=== PATIENT | male | born 1940 | race Caucasian/White ===

== ENCOUNTER 2016-11-13 10:29 | Emergency (ER) | payer MEDICARE ==
[~2016-11-13] VITALS: Ht 172.7 cm; Wt 77.1 kg
[2016-11-13] MEDS ORDERED: PLAV75TA38 PO (10:48)
[2016-11-13] MEDS ORDERED: NS 1,000 ML IV ONE (12:45)
[2016-11-13] MEDS ORDERED: IPRATROPIUM 0.5MG/ALBUTEROL 2.5MG INH SOL UD 3ML (DUONEB)(J7620) NEB ONE (12:45)
[2016-11-13 13:07] LABS: BASO % 0.5 % (0.0-1.0); EOS # 0.4 K/mm3 (0.0-0.50); EOS % 4.1 % (0.0-3.0); LARGE UNSTAINED CELL # 0.2 K/mm3 (0.0-0.4); LARGE UNSTAINED CELL % 1.9 % (0.0-4.0); MEAN CORPUSCULAR HEMOGLOBIN 34.9 pg (27.0-33.0); MEAN CORPUSCULAR HGB CONC 33.2 g/dl (32.0-36.5); MEAN CORPUSCULAR VOLUME 105.1 fl (80.0-96.0); MONO # 0.5 K/mm3 (0.0-0.8); MONO % 4.8 % (0.0-5.0); NEUTROPHILS # 6.9 K/mm3 (1.8-7.7); NEUTROPHILS % 68.8 % (36.0-66.0); PLATELET COUNT, AUTOMATED 289 k/mm3 (150-450); RED CELL DISTRIBUTION WIDTH 14.2 % (11.5-14.5)
[2016-11-13 13:31] LABS: ANION GAP 7 MEQ/L (8-16); BLOOD UREA NITROGEN 33 MG/DL (7-18); CALCIUM LEVEL 10.9 MG/DL (8.8-10.2); CARBON DIOXIDE LEVEL 32 MEQ/L (21-32); CHLORIDE LEVEL 105 MEQ/L (98-107); CREATININE FOR GFR 1.67 MG/DL (0.70-1.30); GLUCOSE, FASTING 99 MG/DL (83-110); POTASSIUM SERUM 3.7 MEQ/L (3.5-5.1); SODIUM LEVEL 144 MEQ/L (136-145)
[2016-11-13 14:17] VITALS: BP 145/84
[2016-11-13] MEDS ORDERED: ZITHTAB PO (14:17)
[2016-11-13] MEDS ORDERED: ALBU17IN INH (14:17)
--- NOTE | 2016-11-13 14:31 | REP ---
Chest two views HISTORY: Chest pain Comparison: None Increased density is present in the right middle lobe consistent with an infiltrate. Patchy density is present in the left lower lobe consistent with atelectasis or infiltrate. The heart is normal in size. The pulmonary vasculature is normal in appearance. The bony structure is intact. IMPRESSION: 1. Right middle lobe infiltrate. 2. Left lower lobe atelectasis or infiltrate. Signed by Farshad Sutton MD 11/13/2016 01:55 P
--- NOTE | 2016-11-14 08:48 | ECGEPIP ---
Stationary ECG Study [facility] - ED Test Date: 2016-11-13 Pat Name: DEE ORONA Department: Room: - Gender: M Bulk Driver: brittany : 1940 Requested By: DIETER Knox PA-C Order Number: [id number] Reading MD: Lise Colon Measurements Intervals [place] Rate: 64 P: 64 MD: 179 QRS: 57 QRSD: 102 T: 57 QT: 398 QTc: 411 Interpretive Statements SINUS RHYTHM NSTTW ABNORMALITY NO PRIOR FOR COMPARISON Electronically Signed On 11-14-2016 8:47:53 EDT by Lise Colon
== END 2016-11-13 14:24 | disposition home or self-care (01) ==
LOC: M ED 12:07
DX: J18.1 Lobar pneumonia, unspecified organism (principal); I50.9 Heart failure, unspecified; I10 Essential (primary) hypertension; N40.0 Benign prostatic hyperplasia without lower urinary tract symptoms; F17.200 Nicotine dependence, unspecified, uncomplicated; R94.31 Abnormal electrocardiogram [ECG] [EKG]; Z79.02 Long term (current) use of antithrombotics/antiplatelets

== ENCOUNTER 2017-07-28 19:57 | Inpatient (IN) | payer MEDICARE, OTHER ==
[2017-07-28] MEDS: SYMBICORT 160/4.5MCG INHALER 6GM INH (21:00)
[2017-07-28] MEDS: MORPHINE 4 MG/ML 1ML VIAL (J2270) IV ×2 (21:03→22:40)
[2017-07-28 21:13] LABS: BASO # 0.1 10^3/uL (0.0-0.2); BASO % 0.8 % (0.0-1.0); EOS # 0.4 10^3/uL (0.0-0.50); EOS % 4.2 % (0.0-3.0); HEMATOCRIT 35.4 % (42.0-52.0); IMMATURE GRANULOCYTE % 0.2 % (0-3.0); LYMPH # 2.2 10^3/uL (1.5-4.5); LYMPH % 25.6 % (24.0-44.0); MEAN CORPUSCULAR HEMOGLOBIN 32.5 pg (27.0-33.0); MEAN CORPUSCULAR HGB CONC 33.9 g/dl (32.0-36.5); MEAN CORPUSCULAR VOLUME 95.9 fl (80.0-96.0); MONO # 0.7 10^3/uL (0.0-0.8); MONO % 8.5 % (0.0-5.0); NEUTROPHILS # 5.2 10^3/uL (1.8-7.7); NEUTROPHILS % 60.7 % (36.0-66.0); PLATELET COUNT, AUTOMATED 296 10^3/uL (150-450); RED BLOOD COUNT 3.69 10^6/uL (4.30-6.10); WHITE BLOOD COUNT 8.6 10^3/uL (4.0-10.0)
[2017-07-28 21:26] LABS: INR 1.01; PROTHROMBIN TIME 13.4 SECONDS (12.4-14.5)
[2017-07-28 21:27] LABS: PARTIAL THROMBOPLASTIN TIME 31.7 SECONDS (26.8-37.9)
[2017-07-28] MEDS ORDERED: ISOVUE-370 76% 100ML VIAL (Q9967) As Ordered (21:38)
[2017-07-28 21:40] LABS: ALT/SGPT 17 U/L (12-78); ANION GAP 8 MEQ/L (8-16); AST/SGOT 16 U/L (7-37); BLOOD UREA NITROGEN 23 MG/DL (7-18); CARBON DIOXIDE LEVEL 27 MEQ/L (21-32); CHLORIDE LEVEL 106 MEQ/L (98-107); CPK CREATINE PHOSPHOKINASE 77 U/L (39-308); GLOMERULAR FILTRATION RATE > 60.0 (>42); GLUCOSE, FASTING 109 MG/DL (70-100); POTASSIUM SERUM 3.2 MEQ/L (3.5-5.1); SODIUM LEVEL 141 MEQ/L (136-145)
[2017-07-28 21:41] LABS: ALBUMIN 3.6 GM/DL (3.2-5.2); ALBUMIN/GLOBULIN RATIO 0.88 (1.00-1.93); ALKALINE PHOSPHATASE 140 U/L (45-117); BILIRUBIN,DIRECT < 0.1 MG/DL (0.0-0.2); BILIRUBIN,TOTAL 0.3 MG/DL (0.2-1.0); C REACTIVE PROTEIN QUANTITATIV 1.14 MG/DL (0.00-0.30); LIPASE 91 U/L (73-393); MB/CK RELATIVE INDEX 1.29 (< OR =4); TOTAL PROTEIN 7.7 GM/DL (6.4-8.2); TROPONIN I < 0.02 NG/ML (< 0.10)
[2017-07-28 21:44] LABS: ERYTHROCYTE SEDIMENTATION RATE 41 mm/hr (0-20)
[2017-07-28 22:49] LABS: KETONE, URINE AUTO RFX NEGATIVE (NEGATIVE); LEUKOCYTE ESTERASE UR AUTO RFX NEGATIVE (NEGATIVE); NITRITE, URINE AUTO RFX NEGATIVE (NEGATIVE); RBC, URINE AUTO RFX 0 /HPF (0-3); SPECIFIC GRAVITY UR AUTO RFX 1.016 (1.002-1.035); SQUAM EPITHELIAL CELL UR AURFX 0 /HPF (0-6); WBC, URINE AUTO RFX 0 /HPF (0-3)
[2017-07-28] MEDS: PANTOPRAZOLE 40MG INJ (PROTONIX) (C9113) IV (23:19)
[2017-07-28] MEDS: KCL 40MEQ in NS 1000ML 1,000 ML IV (23:19)
[2017-07-28] MEDS: POTASSIUM CHLORIDE 10 MEQ SR TABLET PO (23:20)
[2017-07-28] MEDS: ALBUTEROL SULFATE 2.5 MG/0.5 ML INH NEB SOLN NEB (23:30)
[2017-07-28] MEDS: GI COCKTAIL 50ML BTL(HYOSCYAMINE/MAALOX/LIDOCAINE VISCOUS)(1:3:1) PO (23:37)
[2017-07-28] MEDS: ONDANSETRON 4MG/2ML VIAL (J2405) IV (23:38)
[2017-07-29] MEDS ORDERED: ONDANSETRON 4MG/2ML VIAL (J2405) IV (00:30)
[2017-07-29] MEDS: methylPREDNISolone INJ 125 MG/2 ML VIAL (J2930) IV (00:30)
[2017-07-29] MEDS ORDERED: diphenhydrAMINE 25 MG CAP PO (01:15)
[2017-07-29] MEDS: LevoFLOXacin IV 750 MG in APPROPRIATE DILUENT 1 EA IV (01:22)
[2017-07-29] MEDS: TAMSULOSIN 0.4 MG CAP PO ×2 (01:55→18:55)
[2017-07-29] MEDS: amLODIPine 10 MG TAB PO ×2 (01:56→18:55)
[2017-07-29] MEDS: SIMVASTATIN 20 MG TAB PO ×2 (01:56→18:55)
[2017-07-29] MEDS: MONTELUKAST 10 MG TAB PO ×2 (01:56→18:55)
[2017-07-29] MEDS: IPRATROPIUM 0.5MG/ALBUTEROL 2.5MG INH SOL UD 3ML (DUONEB)(J7620) NEB ×4 (02:00→18:30)
[2017-07-29] MEDS: HEPARIN SOD (PORCINE) 5000 UNITS/ML VIAL SQ ×3 (05:46→21:39)
[2017-07-29 07:20] LABS: HEMATOCRIT 35.2 % (42.0-52.0); HEMOGLOBIN 11.9 g/dl (14.0-18.0); MEAN CORPUSCULAR HEMOGLOBIN 32.4 pg (27.0-33.0); MEAN CORPUSCULAR HGB CONC 33.8 g/dl (32.0-36.5); MEAN CORPUSCULAR VOLUME 95.9 fl (80.0-96.0); PLATELET COUNT, AUTOMATED 294 10^3/uL (150-450); RED BLOOD COUNT 3.67 10^6/uL (4.30-6.10); RED CELL DISTRIBUTION WIDTH 14.9 % (11.5-14.5); WHITE BLOOD COUNT 9.2 10^3/uL (4.0-10.0)
[2017-07-29 07:26] LABS: ADD MANUAL DIFFER YES; DIFF SLIDE NUMBER 112; POSITIVE MORPH POS FLAG
[2017-07-29 07:29] LABS: ALBUMIN 3.4 GM/DL (3.2-5.2); ALBUMIN/GLOBULIN RATIO 0.87 (1.00-1.93); ALKALINE PHOSPHATASE 125 U/L (45-117); ALT/SGPT 16 U/L (12-78); ANION GAP 10 MEQ/L (8-16); AST/SGOT 14 U/L (7-37); BILIRUBIN,TOTAL 0.4 MG/DL (0.2-1.0); BLOOD UREA NITROGEN 21 MG/DL (7-18); C REACTIVE PROTEIN QUANTITATIV 1.12 MG/DL (0.00-0.30); CALCIUM LEVEL 8.8 MG/DL (8.8-10.2); CARBON DIOXIDE LEVEL 25 MEQ/L (21-32); CHLORIDE LEVEL 107 MEQ/L (98-107); CREATININE FOR GFR 1.29 MG/DL (0.70-1.30); GLOMERULAR FILTRATION RATE 57.8 (>42); GLUCOSE, FASTING 167 MG/DL (70-100); MAGNESIUM LEVEL 2.1 MG/DL (1.8-2.4); POTASSIUM SERUM 3.8 MEQ/L (3.5-5.1); SODIUM LEVEL 142 MEQ/L (136-145); TOTAL PROTEIN 7.3 GM/DL (6.4-8.2)
[2017-07-29 07:56] LABS: LYMPHOCYTES 8 % (16-52); MONOCYTES 2 % (0-8); NEUTROPHILS 90 % (35-75)
[2017-07-29 08:01] LABS: ANISOCYTOSIS 1+; PLATELET ESTIMATE NORMAL (NORMAL)
[2017-07-29] MEDS: SYMBICORT 160/4.5MCG INHALER 6GM INH ×2 (08:23→18:31)
[2017-07-29] MEDS: CLOPIDOGREL 75 MG TAB PO (08:40)
[2017-07-29] MEDS: LORATADINE 10 MG TAB PO (08:40)
[2017-07-29] MEDS: ATENOLOL 50 MG TAB PO (08:40)
[2017-07-29] MEDS: MULTIVITAMINS/MINERALS THERAP 1 TAB PO (08:40)
[2017-07-29] MEDS: PANTOPRAZOLE 40MG INJ (PROTONIX) (C9113) IV (08:41)
[2017-07-29] MEDS: KCL 40MEQ in NS 1000ML 1,000 ML IV (09:29)
[2017-07-29] MEDS: ALLOPURINOL 300 MG TAB PO (10:11)
[2017-07-29] MEDS: LISINOPRIL 5 MG TAB PO (10:11)
[2017-07-29] MEDS: methylPREDNISolone INJ 40 MG/1 ML VIAL (J2920) IV ×2 (10:11→18:00)
[2017-07-29] MEDS: MORPHINE 4 MG/ML 1ML VIAL (J2270) IV ×3 (10:12→18:56)
[2017-07-29] MEDS: GI COCKTAIL 50ML BTL(HYOSCYAMINE/MAALOX/LIDOCAINE VISCOUS)(1:3:1) PO (16:00)
[2017-07-30] MEDS: MORPHINE 4 MG/ML 1ML VIAL (J2270) IV ×3 (00:06→18:51)
[2017-07-30] MEDS: IPRATROPIUM 0.5MG/ALBUTEROL 2.5MG INH SOL UD 3ML (DUONEB)(J7620) NEB ×4 (01:25→20:00)
[2017-07-30] MEDS: methylPREDNISolone INJ 40 MG/1 ML VIAL (J2920) IV ×2 (01:43→10:39)
[2017-07-30] MEDS: LevoFLOXacin IV 750 MG in APPROPRIATE DILUENT 1 EA IV (01:43)
[2017-07-30] MEDS ORDERED: SLF 3 ML SYR IV (04:45)
[2017-07-30 05:42] LABS: BASO % 0.1 % (0.0-1.0); HEMATOCRIT 34.5 % (42.0-52.0); HEMOGLOBIN 11.6 g/dl (14.0-18.0); IMMATURE GRANULOCYTE % 0.5 % (0-3.0); LYMPH % 7.1 % (24.0-44.0); MEAN CORPUSCULAR HGB CONC 33.6 g/dl (32.0-36.5); MEAN CORPUSCULAR VOLUME 95.3 fl (80.0-96.0); MONO # 0.5 10^3/uL (0.0-0.8); MONO % 3.3 % (0.0-5.0); NEUTROPHILS # 12.2 10^3/uL (1.8-7.7); PLATELET COUNT, AUTOMATED 278 10^3/uL (150-450); RED BLOOD COUNT 3.62 10^6/uL (4.30-6.10); RED CELL DISTRIBUTION WIDTH 14.9 % (11.5-14.5); WHITE BLOOD COUNT 13.7 10^3/uL (4.0-10.0)
[2017-07-30] MEDS: SLF 3 ML SYR IV ×3 (05:59→21:26)
[2017-07-30] MEDS: HEPARIN SOD (PORCINE) 5000 UNITS/ML VIAL SQ ×3 (05:59→21:25)
[2017-07-30 06:00] LABS: ALBUMIN 3.4 GM/DL (3.2-5.2); ALBUMIN/GLOBULIN RATIO 0.92 (1.00-1.93); ALKALINE PHOSPHATASE 105 U/L (45-117); ALT/SGPT 13 U/L (12-78); ANION GAP 8 MEQ/L (8-16); AST/SGOT 13 U/L (7-37); BILIRUBIN,TOTAL 0.3 MG/DL (0.2-1.0); BLOOD UREA NITROGEN 25 MG/DL (7-18); C REACTIVE PROTEIN QUANTITATIV 1.15 MG/DL (0.00-0.30); CALCIUM LEVEL 8.8 MG/DL (8.8-10.2); CARBON DIOXIDE LEVEL 27 MEQ/L (21-32); CHLORIDE LEVEL 104 MEQ/L (98-107); CREATININE FOR GFR 1.24 MG/DL (0.70-1.30); GLOMERULAR FILTRATION RATE > 60.0 (>42); GLUCOSE, FASTING 153 MG/DL (70-100); MAGNESIUM LEVEL 2.2 MG/DL (1.8-2.4); POTASSIUM SERUM 3.8 MEQ/L (3.5-5.1); SODIUM LEVEL 139 MEQ/L (136-145); TOTAL PROTEIN 7.1 GM/DL (6.4-8.2)
[2017-07-30] MEDS: SYMBICORT 160/4.5MCG INHALER 6GM INH ×2 (08:00→20:21)
[2017-07-30] MEDS: PANTOPRAZOLE 40MG INJ (PROTONIX) (C9113) IV (08:40)
[2017-07-30] MEDS: ALLOPURINOL 300 MG TAB PO (08:41)
[2017-07-30] MEDS: ATENOLOL 50 MG TAB PO (08:41)
[2017-07-30] MEDS: LISINOPRIL 5 MG TAB PO (08:42)
[2017-07-30] MEDS: MULTIVITAMINS/MINERALS THERAP 1 TAB PO (08:42)
[2017-07-30] MEDS: LORATADINE 10 MG TAB PO (08:42)
[2017-07-30] MEDS: CLOPIDOGREL 75 MG TAB PO (08:42)
[2017-07-30] MEDS: SIMVASTATIN 20 MG TAB PO (21:25)
[2017-07-30] MEDS: TAMSULOSIN 0.4 MG CAP PO (21:25)
[2017-07-30] MEDS: MONTELUKAST 10 MG TAB PO (21:25)
[2017-07-30] MEDS: amLODIPine 10 MG TAB PO (21:26)
[2017-07-30] MEDS: SENNA 8.6 MG TAB (SENOKOT) PO (23:01)
[2017-07-30] MEDS: DOCUSATE SODIUM 100 MG CAP PO (23:02)
[2017-07-31] MEDS: IPRATROPIUM 0.5MG/ALBUTEROL 2.5MG INH SOL UD 3ML (DUONEB)(J7620) NEB ×5 (00:36→20:00)
[2017-07-31] MEDS: MORPHINE 4 MG/ML 1ML VIAL (J2270) IV ×5 (00:47→22:45)
[2017-07-31] MEDS: HEPARIN SOD (PORCINE) 5000 UNITS/ML VIAL SQ ×3 (05:15→22:04)
[2017-07-31] MEDS: SLF 3 ML SYR IV ×3 (05:15→22:04)
[2017-07-31 06:52] LABS: BASO % 0.1 % (0.0-1.0); HEMATOCRIT 40.5 % (42.0-52.0); IMMATURE GRANULOCYTE % 0.5 % (0-3.0); LYMPH # 1.9 10^3/uL (1.5-4.5); LYMPH % 9.6 % (24.0-44.0); MEAN CORPUSCULAR HEMOGLOBIN 32.5 pg (27.0-33.0); MEAN CORPUSCULAR HGB CONC 34.6 g/dl (32.0-36.5); MONO # 1.5 10^3/uL (0.0-0.8); MONO % 7.3 % (0.0-5.0); NEUTROPHILS # 16.5 10^3/uL (1.8-7.7); NEUTROPHILS % 82.5 % (36.0-66.0); PLATELET COUNT, AUTOMATED 351 10^3/uL (150-450); RED BLOOD COUNT 4.31 10^6/uL (4.30-6.10); RED CELL DISTRIBUTION WIDTH 14.8 % (11.5-14.5); WHITE BLOOD COUNT 20.1 10^3/uL (4.0-10.0)
[2017-07-31 07:20] LABS: ALBUMIN 3.3 GM/DL (3.2-5.2); ALBUMIN/GLOBULIN RATIO 0.89 (1.00-1.93); ALKALINE PHOSPHATASE 110 U/L (45-117); ALT/SGPT 27 U/L (12-78); ANION GAP 8 MEQ/L (8-16); AST/SGOT 26 U/L (7-37); BILIRUBIN,TOTAL 0.4 MG/DL (0.2-1.0); BLOOD UREA NITROGEN 27 MG/DL (7-18); CALCIUM LEVEL 9.1 MG/DL (8.8-10.2); CARBON DIOXIDE LEVEL 30 MEQ/L (21-32); CHLORIDE LEVEL 100 MEQ/L (98-107); CREATININE FOR GFR 1.26 MG/DL (0.70-1.30); GLOMERULAR FILTRATION RATE 59.4 (>42); GLUCOSE, FASTING 124 MG/DL (70-100); POTASSIUM SERUM 3.6 MEQ/L (3.5-5.1); SODIUM LEVEL 138 MEQ/L (136-145)
[2017-07-31] MEDS: SYMBICORT 160/4.5MCG INHALER 6GM INH ×2 (07:43→20:13)
[2017-07-31] MEDS: ALLOPURINOL 300 MG TAB PO ×2 (09:00→13:10)
[2017-07-31] MEDS: MULTIVITAMINS/MINERALS THERAP 1 TAB PO ×2 (09:00→13:11)
[2017-07-31] MEDS: LISINOPRIL 5 MG TAB PO ×2 (09:00→13:15)
[2017-07-31] MEDS ORDERED: E-Z-HD 98% w/w 340GM SUSP BTL As Ordered (11:00)
[2017-07-31] MEDS ORDERED: E-Z-GAS II EFFERVESCENT PACKET (SODIUM BICARB./CITRIC ACID/SIMETHICONE) As Ordered (11:00)
[2017-07-31] MEDS ORDERED: E-Z-PAQUE 96% w/w SUSP 176GM BTL As Ordered (11:00)
[2017-07-31] MEDS: PANTOPRAZOLE 40MG INJ (PROTONIX) (C9113) IV (13:10)
[2017-07-31] MEDS: SENNA 8.6 MG TAB (SENOKOT) PO (13:10)
[2017-07-31] MEDS: DOCUSATE SODIUM 100 MG CAP PO (13:10)
[2017-07-31] MEDS: CLOPIDOGREL 75 MG TAB PO (13:11)
[2017-07-31] MEDS: LORATADINE 10 MG TAB PO (13:11)
[2017-07-31] MEDS: ATENOLOL 50 MG TAB PO (13:14)
[2017-07-31] MEDS: TAMSULOSIN 0.4 MG CAP PO (20:34)
[2017-07-31] MEDS: MONTELUKAST 10 MG TAB PO (20:34)
[2017-07-31] MEDS: SIMVASTATIN 20 MG TAB PO (20:34)
[2017-07-31] MEDS: amLODIPine 10 MG TAB PO (20:35)
[2017-07-31] MEDS: KETOROLAC 30 MG/ML VIAL (J1885) IV (23:15)
[2017-08-01] MEDS: IPRATROPIUM 0.5MG/ALBUTEROL 2.5MG INH SOL UD 3ML (DUONEB)(J7620) NEB ×4 (02:00→20:00)
[2017-08-01] MEDS: MORPHINE 4 MG/ML 1ML VIAL (J2270) IV ×4 (03:17→20:41)
[2017-08-01] MEDS: KETOROLAC 30 MG/ML VIAL (J1885) IV (05:56)
[2017-08-01] MEDS: HEPARIN SOD (PORCINE) 5000 UNITS/ML VIAL SQ ×3 (05:57→20:42)
[2017-08-01] MEDS: SLF 3 ML SYR IV ×3 (05:57→20:42)
[2017-08-01 06:34] LABS: BASO % 0.2 % (0.0-1.0); EOS # 0.1 10^3/uL (0.0-0.50); HEMATOCRIT 37.9 % (42.0-52.0); IMMATURE GRANULOCYTE % 0.3 % (0-3.0); LYMPH # 1.2 10^3/uL (1.5-4.5); LYMPH % 11.5 % (24.0-44.0); MEAN CORPUSCULAR HEMOGLOBIN 32.5 pg (27.0-33.0); MEAN CORPUSCULAR HGB CONC 34.3 g/dl (32.0-36.5); MEAN CORPUSCULAR VOLUME 94.8 fl (80.0-96.0); MONO % 9.4 % (0.0-5.0); NEUTROPHILS # 8.1 10^3/uL (1.8-7.7); NEUTROPHILS % 77.6 % (36.0-66.0); PLATELET COUNT, AUTOMATED 304 10^3/uL (150-450); RED CELL DISTRIBUTION WIDTH 14.7 % (11.5-14.5); WHITE BLOOD COUNT 10.4 10^3/uL (4.0-10.0)
[2017-08-01 06:58] LABS: ALBUMIN 3.3 GM/DL (3.2-5.2); ALBUMIN/GLOBULIN RATIO 0.89 (1.00-1.93); ALKALINE PHOSPHATASE 112 U/L (45-117); ALT/SGPT 56 U/L (12-78); ANION GAP 8 MEQ/L (8-16); AST/SGOT 38 U/L (7-37); BILIRUBIN,TOTAL 0.8 MG/DL (0.2-1.0); BLOOD UREA NITROGEN 46 MG/DL (7-18); CARBON DIOXIDE LEVEL 29 MEQ/L (21-32); CHLORIDE LEVEL 99 MEQ/L (98-107); CREATININE FOR GFR 2.03 MG/DL (0.70-1.30); GLOMERULAR FILTRATION RATE 34.3 (>42); GLUCOSE, FASTING 133 MG/DL (70-100); POTASSIUM SERUM 3.7 MEQ/L (3.5-5.1); SODIUM LEVEL 136 MEQ/L (136-145)
[2017-08-01] MEDS: SYMBICORT 160/4.5MCG INHALER 6GM INH ×2 (08:38→20:40)
[2017-08-01] MEDS: ATENOLOL 50 MG TAB PO (08:45)
[2017-08-01] MEDS: MULTIVITAMINS/MINERALS THERAP 1 TAB PO (08:45)
[2017-08-01] MEDS: LORATADINE 10 MG TAB PO (08:45)
[2017-08-01] MEDS: PANTOPRAZOLE 40MG INJ (PROTONIX) (C9113) IV (08:45)
[2017-08-01] MEDS: ALLOPURINOL 300 MG TAB PO (08:45)
[2017-08-01] MEDS: LISINOPRIL 5 MG TAB PO (08:46)
[2017-08-01] MEDS: KCL 40MEQ in NS 1000ML 1,000 ML IV ×3 (11:44→20:45)
[2017-08-01] MEDS: SIMVASTATIN 20 MG TAB PO (20:41)
[2017-08-01] MEDS: MONTELUKAST 10 MG TAB PO (20:41)
[2017-08-01] MEDS: TAMSULOSIN 0.4 MG CAP PO (20:41)
[2017-08-01] MEDS: ACETAMINOPHEN TAB 650MG DOSE (2X325MG) PO (23:03)
[2017-08-01] MEDS: NS 1,000 ML IV (23:13)
[2017-08-02 00:05] LABS: ANION GAP 10 MEQ/L (8-16); BLOOD UREA NITROGEN 50 MG/DL (7-18); CALCIUM LEVEL 7.9 MG/DL (8.8-10.2); CARBON DIOXIDE LEVEL 27 MEQ/L (21-32); CHLORIDE LEVEL 108 MEQ/L (98-107); CREATININE FOR GFR 1.96 MG/DL (0.70-1.30); GLOMERULAR FILTRATION RATE 35.7 (>42); GLUCOSE, FASTING 100 MG/DL (70-100); MAGNESIUM LEVEL 2.6 MG/DL (1.8-2.4); SODIUM LEVEL 145 MEQ/L (136-145)
[2017-08-02 00:19] LABS: HEMATOCRIT 36.1 % (42.0-52.0); HEMOGLOBIN 12.3 g/dl (14.0-18.0); MEAN CORPUSCULAR HEMOGLOBIN 32.7 pg (27.0-33.0); MEAN CORPUSCULAR HGB CONC 34.1 g/dl (32.0-36.5); PLATELET COUNT, AUTOMATED 256 10^3/uL (150-450); RED BLOOD COUNT 3.76 10^6/uL (4.30-6.10); RED CELL DISTRIBUTION WIDTH 14.8 % (11.5-14.5); WHITE BLOOD COUNT 5.1 10^3/uL (4.0-10.0)
[2017-08-02] MEDS: IPRATROPIUM 0.5MG/ALBUTEROL 2.5MG INH SOL UD 3ML (DUONEB)(J7620) NEB ×4 (02:02→20:00)
[2017-08-02] MEDS: ACETAMINOPHEN TAB 650MG DOSE (2X325MG) PO ×4 (03:27→20:10)
[2017-08-02] MEDS: SLF 3 ML SYR IV ×3 (05:44→22:00)
[2017-08-02] MEDS: HEPARIN SOD (PORCINE) 5000 UNITS/ML VIAL SQ ×2 (06:18→15:11)
[2017-08-02 06:48] LABS: HEMATOCRIT 34.2 % (42.0-52.0); HEMOGLOBIN 11.7 g/dl (14.0-18.0); MEAN CORPUSCULAR HEMOGLOBIN 32.4 pg (27.0-33.0); MEAN CORPUSCULAR HGB CONC 34.2 g/dl (32.0-36.5); MEAN CORPUSCULAR VOLUME 94.7 fl (80.0-96.0); PLATELET COUNT, AUTOMATED 263 10^3/uL (150-450); RED BLOOD COUNT 3.61 10^6/uL (4.30-6.10); RED CELL DISTRIBUTION WIDTH 14.8 % (11.5-14.5); WHITE BLOOD COUNT 5.2 10^3/uL (4.0-10.0)
[2017-08-02 06:50] LABS: POSITIVE MORPH POS FLAG
[2017-08-02 06:51] LABS: ADD MANUAL DIFFER YES; DIFF SLIDE NUMBER 18
[2017-08-02 07:13] LABS: ALBUMIN 2.8 GM/DL (3.2-5.2); ALBUMIN/GLOBULIN RATIO 0.82 (1.00-1.93); ALKALINE PHOSPHATASE 93 U/L (45-117); ALT/SGPT 33 U/L (12-78); ANION GAP 9 MEQ/L (8-16); AST/SGOT 19 U/L (7-37); BILIRUBIN,TOTAL 0.9 MG/DL (0.2-1.0); BLOOD UREA NITROGEN 49 MG/DL (7-18); CALCIUM LEVEL 8.4 MG/DL (8.8-10.2); CARBON DIOXIDE LEVEL 25 MEQ/L (21-32); CHLORIDE LEVEL 109 MEQ/L (98-107); CREATININE FOR GFR 1.83 MG/DL (0.70-1.30); GLOMERULAR FILTRATION RATE 38.6 (>42); GLUCOSE, FASTING 82 MG/DL (70-100); MAGNESIUM LEVEL 2.8 MG/DL (1.8-2.4); POTASSIUM SERUM 4.3 MEQ/L (3.5-5.1); SODIUM LEVEL 143 MEQ/L (136-145); TOTAL PROTEIN 6.2 GM/DL (6.4-8.2)
[2017-08-02 07:25] LABS: ATYPICAL LYMPH 1 % (0-5); BANDS 6 % (< 11); EOSINOPHILS 1 % (0-5); LYMPHOCYTES 23 % (16-52); METAMYELOCYTES 2 % (0-0); MONOCYTES 5 % (0-8); NEUTROPHILS 62 % (35-75); PLATELET ESTIMATE NORMAL (NORMAL)
[2017-08-02] MEDS: SYMBICORT 160/4.5MCG INHALER 6GM INH ×2 (08:19→21:01)
[2017-08-02] MEDS: ALLOPURINOL 300 MG TAB PO (09:15)
[2017-08-02] MEDS: LORATADINE 10 MG TAB PO (09:15)
[2017-08-02] MEDS: MULTIVITAMINS/MINERALS THERAP 1 TAB PO (09:15)
[2017-08-02] MEDS: PANTOPRAZOLE 40MG INJ (PROTONIX) (C9113) IV (09:16)
[2017-08-02] MEDS: KCL 20MEQ IN 0.45NS 1000ML 1,000 ML IV ×2 (12:45→20:09)
[2017-08-02] MEDS: TAMSULOSIN 0.4 MG CAP PO (20:10)
[2017-08-02] MEDS: MORPHINE 4 MG/ML 1ML VIAL (J2270) IV (20:11)
[2017-08-02] MEDS: MONTELUKAST 10 MG TAB PO (22:10)
[2017-08-03] MEDS: IPRATROPIUM 0.5MG/ALBUTEROL 2.5MG INH SOL UD 3ML (DUONEB)(J7620) NEB ×4 (02:08→20:00)
[2017-08-03] MEDS: KCL 20MEQ IN 0.45NS 1000ML 1,000 ML IV (03:27)
[2017-08-03] MEDS: SLF 3 ML SYR IV ×3 (03:44→19:33)
[2017-08-03] MEDS: MORPHINE 4 MG/ML 1ML VIAL (J2270) IV ×3 (03:58→22:12)
[2017-08-03 06:49] LABS: HEMATOCRIT 35.4 % (42.0-52.0); HEMOGLOBIN 11.9 g/dl (14.0-18.0); MEAN CORPUSCULAR HEMOGLOBIN 32.2 pg (27.0-33.0); MEAN CORPUSCULAR HGB CONC 33.6 g/dl (32.0-36.5); MEAN CORPUSCULAR VOLUME 95.7 fl (80.0-96.0); PLATELET COUNT, AUTOMATED 266 10^3/uL (150-450); RED CELL DISTRIBUTION WIDTH 14.9 % (11.5-14.5); WHITE BLOOD COUNT 7.1 10^3/uL (4.0-10.0)
[2017-08-03 06:56] LABS: ADD MANUAL DIFFER YES; DIFF SLIDE NUMBER 11; POSITIVE MORPH POS FLAG
[2017-08-03 07:09] LABS: ALBUMIN 2.9 GM/DL (3.2-5.2); ALBUMIN/GLOBULIN RATIO 0.76 (1.00-1.93); ALKALINE PHOSPHATASE 87 U/L (45-117); ALT/SGPT 27 U/L (12-78); ANION GAP 13 MEQ/L (8-16); AST/SGOT 13 U/L (7-37); BILIRUBIN,TOTAL 0.6 MG/DL (0.2-1.0); BLOOD UREA NITROGEN 48 MG/DL (7-18); CALCIUM LEVEL 8.6 MG/DL (8.8-10.2); CARBON DIOXIDE LEVEL 22 MEQ/L (21-32); CHLORIDE LEVEL 107 MEQ/L (98-107); CREATININE FOR GFR 1.63 MG/DL (0.70-1.30); GLOMERULAR FILTRATION RATE 44.1 (>42); GLUCOSE, FASTING 80 MG/DL (70-100); POTASSIUM SERUM 4.2 MEQ/L (3.5-5.1); SODIUM LEVEL 142 MEQ/L (136-145); TOTAL PROTEIN 6.7 GM/DL (6.4-8.2)
[2017-08-03 07:25] LABS: ATYPICAL LYMPH 4 % (0-5); BANDS 3 % (< 11); LYMPHOCYTES 19 % (16-52); MONOCYTES 11 % (0-8); NEUTROPHILS 59 % (35-75)
[2017-08-03 07:26] LABS: PLATELET ESTIMATE NORMAL (NORMAL)
[2017-08-03 07:45] LABS: EOSINOPHILS 4 % (0-5)
[2017-08-03] MEDS ORDERED: IPRATROPIUM 0.5MG/ALBUTEROL 2.5MG INH SOL UD 3ML (DUONEB)(J7620) As Ordered (08:08)
[2017-08-03] MEDS: ERTAPENEM 1 GM INJ (INVanz) (J1335) As Ordered (08:40)
[2017-08-03] MEDS ORDERED: fentaNYL 250 MCG/5 ML INJECTION (J3010) As Ordered (08:51)
[2017-08-03] MEDS ORDERED: MIDAZOLAM INJ 2 MG/2 ML VIAL (J2250) As Ordered (08:51)
[2017-08-03] MEDS ORDERED: ROCURONIUM BROMIDE 50 MG/5 ML VIAL As Ordered ×2 (08:51→09:01)
[2017-08-03] MEDS ORDERED: PROPOFOL 200 MG/20 ML VIAL As Ordered (08:51)
[2017-08-03] MEDS ORDERED: METOCLOPRAMIDE INJ 10MG/2ML VIAL (J2765) As Ordered (08:51)
[2017-08-03] MEDS ORDERED: GLYCOPYRROLATE INJ 0.2 MG/ML 2 ML VIAL As Ordered ×2 (08:53)
[2017-08-03] MEDS ORDERED: ONDANSETRON 4MG/2ML VIAL (J2405) As Ordered (08:53)
[2017-08-03] MEDS ORDERED: PHENYLephrine HCL 500 MCG/5 ML (100MCG/ML) SYRINGE (J2370) As Ordered (08:53)
[2017-08-03] MEDS ORDERED: LIDOCAINE 2% INJ 100 MG/5 ML SDV (FOR ANES.) As Ordered (08:53)
[2017-08-03] MEDS ORDERED: NEOSTIGMINE 10 MG/10 ML VIAL (J2710) As Ordered (08:53)
[2017-08-03] MEDS: SYMBICORT 160/4.5MCG INHALER 6GM INH ×2 (09:00→20:35)
[2017-08-03] MEDS ORDERED: ePHEDrine INJ 50 MG/ML VIAL As Ordered (09:03)
[2017-08-03] MEDS ORDERED: HYDROmorphone HCL 2 MG/ML 1ML VIAL (J1170) As Ordered (09:34)
[2017-08-03] MEDS: BUPIVACAINE HCL 0.25% 30 ML VIAL As Ordered (10:20)
[2017-08-03] MEDS ORDERED: ALBUTEROL SULFATE 2.5 MG/0.5 ML INH NEB SOLN As Ordered (10:39)
[2017-08-03] MEDS: ALBUTEROL SULFATE 2.5 MG/0.5 ML INH NEB SOLN INH (10:44)
[2017-08-03] MEDS ORDERED: fentaNYL 100 MCG/2 ML INJECTION (J3010) IV (11:00)
[2017-08-03] MEDS ORDERED: ONDANSETRON 4MG/2ML VIAL (J2405) IV (11:00)
[2017-08-03] MEDS: LR 1,000 ML IV ×2 (11:00→16:04)
[2017-08-03] MEDS ORDERED: HYDROmorphone HCL 1 MG/ML SYRINGE (J1170) IV (11:00)
[2017-08-03] MEDS ORDERED: PERCOCET 5MG/325MG TAB PO (11:00)
[2017-08-03] MEDS: ERTAPENEM SODIUM 1 GM in NS 50 ML IV (14:00)
[2017-08-03] MEDS: PANTOPRAZOLE 40MG INJ (PROTONIX) (C9113) IV (16:03)
[2017-08-03] MEDS: ACETAMINOPHEN TAB 650MG DOSE (2X325MG) PO (17:52)
[2017-08-03] MEDS: MONTELUKAST 10 MG TAB PO (20:13)
[2017-08-03] MEDS: TAMSULOSIN 0.4 MG CAP PO (20:13)
[2017-08-04] MEDS: MORPHINE 4 MG/ML 1ML VIAL (J2270) IV ×5 (01:05→11:46)
[2017-08-04] MEDS: LR 1,000 ML IV ×3 (01:05→22:47)
[2017-08-04] MEDS: IPRATROPIUM 0.5MG/ALBUTEROL 2.5MG INH SOL UD 3ML (DUONEB)(J7620) NEB ×4 (02:13→20:00)
[2017-08-04 02:22] LABS: LACTIC ACID SEPSIS PROTOCOL 0.6 MMOL/L (0.4-2.0)
[2017-08-04] MEDS: SLF 3 ML SYR IV ×3 (02:42→22:28)
[2017-08-04 06:32] LABS: BASO % 0.4 % (0.0-1.0); EOS # 0.3 10^3/uL (0.0-0.50); HEMATOCRIT 34.6 % (42.0-52.0); HEMOGLOBIN 11.5 g/dl (14.0-18.0); IMMATURE GRANULOCYTE % 0.8 % (0-3.0); LYMPH # 1.3 10^3/uL (1.5-4.5); LYMPH % 14.1 % (24.0-44.0); MEAN CORPUSCULAR HEMOGLOBIN 32.4 pg (27.0-33.0); MEAN CORPUSCULAR HGB CONC 33.2 g/dl (32.0-36.5); MEAN CORPUSCULAR VOLUME 97.5 fl (80.0-96.0); MONO # 1.1 10^3/uL (0.0-0.8); MONO % 12.8 % (0.0-5.0); NEUTROPHILS # 6.2 10^3/uL (1.8-7.7); NEUTROPHILS % 68.9 % (36.0-66.0); PLATELET COUNT, AUTOMATED 264 10^3/uL (150-450); RED BLOOD COUNT 3.55 10^6/uL (4.30-6.10); WHITE BLOOD COUNT 8.9 10^3/uL (4.0-10.0)
[2017-08-04 06:40] LABS: POSITIVE MORPH POS FLAG
[2017-08-04 06:53] LABS: ANION GAP 9 MEQ/L (8-16); BLOOD UREA NITROGEN 36 MG/DL (7-18); CALCIUM LEVEL 8.8 MG/DL (8.8-10.2); CARBON DIOXIDE LEVEL 25 MEQ/L (21-32); CHLORIDE LEVEL 109 MEQ/L (98-107); CREATININE FOR GFR 1.61 MG/DL (0.70-1.30); GLOMERULAR FILTRATION RATE 44.8 (>42); GLUCOSE, FASTING 88 MG/DL (70-100); SODIUM LEVEL 143 MEQ/L (136-145)
[2017-08-04 07:33] LABS: ANISOCYTOSIS 1+; BANDS 2 % (< 11); EOSINOPHILS 3 % (0-5); LYMPHOCYTES 12 % (16-52); MONOCYTES 4 % (0-8); NEUTROPHILS 79 % (35-75); PLATELET ESTIMATE NORMAL (NORMAL); POIKILOCYTOSIS 1+
[2017-08-04] MEDS: SYMBICORT 160/4.5MCG INHALER 6GM INH ×2 (07:46→20:10)
[2017-08-04] MEDS: PANTOPRAZOLE 40MG INJ (PROTONIX) (C9113) IV (08:07)
[2017-08-04] MEDS: KCL 20MEQ IN 0.45NS 1000ML 1,000 ML IV (11:46)
[2017-08-04] MEDS ORDERED: MORPHINE 4 MG/ML 1ML VIAL (J2270) IV (12:45)
[2017-08-04] MEDS: PIPERACILLIN/TAZOBACTAM SOD 3.375 GM in APPROPRIATE DILUENT 1 EA IV ×2 (14:17→22:41)
[2017-08-04] MEDS ORDERED: LIDOCAINE 2% INJ 100 MG/5 ML SDV (FOR ANES.) As Ordered (15:29)
[2017-08-04] MEDS ORDERED: fentaNYL 250 MCG/5 ML INJECTION (J3010) As Ordered (15:29)
[2017-08-04] MEDS ORDERED: ROCURONIUM BROMIDE 50 MG/5 ML VIAL As Ordered (15:29)
[2017-08-04] MEDS ORDERED: PROPOFOL 200 MG/20 ML VIAL As Ordered (15:29)
[2017-08-04] MEDS ORDERED: MIDAZOLAM INJ 2 MG/2 ML VIAL (J2250) As Ordered (15:29)
[2017-08-04] MEDS: BUPIVACAINE HCL 0.25% 30 ML VIAL As Ordered (17:17)
[2017-08-04] MEDS ORDERED: PHENYLephrine HCL 500 MCG/5 ML (100MCG/ML) SYRINGE (J2370) As Ordered ×2 (18:02)
[2017-08-04] MEDS ORDERED: NEOSTIGMINE 10 MG/10 ML VIAL (J2710) As Ordered (18:27)
[2017-08-04] MEDS ORDERED: dexameTHASONE 4 MG/ML 1ML VIAL (J1100) As Ordered (18:27)
[2017-08-04] MEDS ORDERED: KETOROLAC 60 MG/2 ML VIAL (J1885) As Ordered (18:27)
[2017-08-04] MEDS ORDERED: ONDANSETRON 4MG/2ML VIAL (J2405) As Ordered (18:27)
[2017-08-04] MEDS ORDERED: GLYCOPYRROLATE INJ 0.2 MG/ML 2 ML VIAL As Ordered (18:27)
[2017-08-04] MEDS ORDERED: HYDROmorphone HCL 2 MG/ML 1ML VIAL (J1170) As Ordered (18:50)
[2017-08-04] MEDS ORDERED: ONDANSETRON 4MG/2ML VIAL (J2405) IV ×2 (20:15→20:30)
[2017-08-04] MEDS ORDERED: diphenhydrAMINE INJ 50MG/ML VIAL (J1200) IV (20:15)
[2017-08-04] MEDS ORDERED: EPIDURAL/PCA KEYS XX (20:15)
[2017-08-04] MEDS ORDERED: NALOXONE INJ 0.4 MG/1 ML VIAL (J2310) IV (20:15)
[2017-08-04] MEDS ORDERED: NALBUPHINE HCL 10 MG/ML AMP (J2300) IV (20:15)
[2017-08-04] MEDS ORDERED: MORPHINE 1MG/ML IN 0.9% NACL 100ML IV BAG As Ordered (20:22)
[2017-08-04] MEDS ORDERED: MORPHINE 10 MG/ML 1ML VIAL (J2270) IV (20:30)
[2017-08-04] MEDS ORDERED: fentaNYL 100 MCG/2 ML INJECTION (J3010) IV (20:30)
[2017-08-04] MEDS: LR 500 ML IV (20:35)
[2017-08-04] MEDS: MORPHINE 1MG/ML IN 0.9% NACL 100ML IV BAG IV (21:25)
[2017-08-04] MEDS: MONTELUKAST 10 MG TAB PO (22:41)
[2017-08-05] MEDS: IPRATROPIUM 0.5MG/ALBUTEROL 2.5MG INH SOL UD 3ML (DUONEB)(J7620) NEB ×5 (02:06→22:48)
[2017-08-05] MEDS: PIPERACILLIN/TAZOBACTAM SOD 3.375 GM in APPROPRIATE DILUENT 1 EA IV ×4 (02:48→21:36)
[2017-08-05] MEDS: LR 1,000 ML IV ×3 (02:50→21:37)
[2017-08-05] MEDS: SLF 3 ML SYR IV ×3 (05:27→21:36)
[2017-08-05 06:53] LABS: BASO % 0.2 % (0.0-1.0); HEMOGLOBIN 10.9 g/dl (14.0-18.0); IMMATURE GRANULOCYTE % 0.9 % (0-3.0); LYMPH # 0.7 10^3/uL (1.5-4.5); LYMPH % 5.3 % (24.0-44.0); MEAN CORPUSCULAR HEMOGLOBIN 32.4 pg (27.0-33.0); MEAN CORPUSCULAR VOLUME 98.2 fl (80.0-96.0); MONO # 0.8 10^3/uL (0.0-0.8); NEUTROPHILS # 12.2 10^3/uL (1.8-7.7); NEUTROPHILS % 87.6 % (36.0-66.0); PLATELET COUNT, AUTOMATED 236 10^3/uL (150-450); RED BLOOD COUNT 3.36 10^6/uL (4.30-6.10); RED CELL DISTRIBUTION WIDTH 15.3 % (11.5-14.5); WHITE BLOOD COUNT 13.9 10^3/uL (4.0-10.0)
[2017-08-05 07:18] LABS: ANION GAP 13 MEQ/L (8-16); BLOOD UREA NITROGEN 33 MG/DL (7-18); CALCIUM LEVEL 8.3 MG/DL (8.8-10.2); CARBON DIOXIDE LEVEL 21 MEQ/L (21-32); CHLORIDE LEVEL 112 MEQ/L (98-107); GLOMERULAR FILTRATION RATE 48.6 (>42); GLUCOSE, FASTING 126 MG/DL (70-100); POTASSIUM SERUM 4.4 MEQ/L (3.5-5.1); SODIUM LEVEL 146 MEQ/L (136-145)
[2017-08-05] MEDS: SYMBICORT 160/4.5MCG INHALER 6GM INH ×3 (07:33→22:48)
[2017-08-05] MEDS: PANTOPRAZOLE 40MG INJ (PROTONIX) (C9113) IV (08:19)
[2017-08-05] MEDS: ENOXAPARIN 40 MG/0.4 ML SYRINGE (J1650) SC (11:18)
[2017-08-05] MEDS: MONTELUKAST 10 MG TAB PO (21:36)
[2017-08-06] MEDS: IPRATROPIUM 0.5MG/ALBUTEROL 2.5MG INH SOL UD 3ML (DUONEB)(J7620) NEB ×4 (00:38→20:00)
[2017-08-06] MEDS: PIPERACILLIN/TAZOBACTAM SOD 3.375 GM in APPROPRIATE DILUENT 1 EA IV ×4 (02:29→20:32)
[2017-08-06] MEDS: LR 1,000 ML IV ×3 (05:19→22:44)
[2017-08-06] MEDS: SLF 3 ML SYR IV ×3 (05:20→22:00)
[2017-08-06 06:30] LABS: BASO % 0.3 % (0.0-1.0); EOS # 0.1 10^3/uL (0.0-0.50); EOS % 0.5 % (0.0-3.0); HEMATOCRIT 30.9 % (42.0-52.0); HEMOGLOBIN 10.5 g/dl (14.0-18.0); IMMATURE GRANULOCYTE % 0.7 % (0-3.0); LYMPH # 1.6 10^3/uL (1.5-4.5); LYMPH % 11.9 % (24.0-44.0); MEAN CORPUSCULAR HEMOGLOBIN 32.8 pg (27.0-33.0); MEAN CORPUSCULAR VOLUME 96.6 fl (80.0-96.0); MONO # 1.1 10^3/uL (0.0-0.8); MONO % 8.1 % (0.0-5.0); NEUTROPHILS # 10.8 10^3/uL (1.8-7.7); NEUTROPHILS % 78.5 % (36.0-66.0); PLATELET COUNT, AUTOMATED 235 10^3/uL (150-450); WHITE BLOOD COUNT 13.8 10^3/uL (4.0-10.0)
[2017-08-06 06:49] LABS: ANION GAP 7 MEQ/L (8-16); BLOOD UREA NITROGEN 29 MG/DL (7-18); CALCIUM LEVEL 8.2 MG/DL (8.8-10.2); CARBON DIOXIDE LEVEL 28 MEQ/L (21-32); CHLORIDE LEVEL 112 MEQ/L (98-107); CREATININE FOR GFR 1.31 MG/DL (0.70-1.30); GLOMERULAR FILTRATION RATE 56.8 (>42); GLUCOSE, FASTING 106 MG/DL (70-100); MAGNESIUM LEVEL 2.2 MG/DL (1.8-2.4); POTASSIUM SERUM 3.6 MEQ/L (3.5-5.1); SODIUM LEVEL 147 MEQ/L (136-145)
[2017-08-06] MEDS: ENOXAPARIN 40 MG/0.4 ML SYRINGE (J1650) SC (08:18)
[2017-08-06] MEDS: PANTOPRAZOLE 40MG INJ (PROTONIX) (C9113) IV (08:18)
[2017-08-06] MEDS: TAMSULOSIN 0.4 MG CAP PO ×2 (11:52→20:32)
[2017-08-06] MEDS: MONTELUKAST 10 MG TAB PO (20:32)
[2017-08-06] MEDS: SYMBICORT 160/4.5MCG INHALER 6GM INH (21:44)
[2017-08-07] MEDS: MORPHINE 4 MG/ML 1ML VIAL (J2270) IV ×3 (01:26→20:15)
[2017-08-07] MEDS: PIPERACILLIN/TAZOBACTAM SOD 3.375 GM in APPROPRIATE DILUENT 1 EA IV ×4 (01:47→20:14)
[2017-08-07] MEDS: IPRATROPIUM 0.5MG/ALBUTEROL 2.5MG INH SOL UD 3ML (DUONEB)(J7620) NEB ×4 (02:13→20:00)
[2017-08-07] MEDS: SLF 3 ML SYR IV ×3 (06:00→20:15)
[2017-08-07 06:21] LABS: BASO % 0.2 % (0.0-1.0); EOS # 0.4 10^3/uL (0.0-0.50); EOS % 3.1 % (0.0-3.0); HEMATOCRIT 32.9 % (42.0-52.0); HEMOGLOBIN 11.2 g/dl (14.0-18.0); IMMATURE GRANULOCYTE % 0.8 % (0-3.0); LYMPH # 1.8 10^3/uL (1.5-4.5); LYMPH % 12.2 % (24.0-44.0); MEAN CORPUSCULAR HEMOGLOBIN 32.7 pg (27.0-33.0); MEAN CORPUSCULAR VOLUME 95.9 fl (80.0-96.0); MONO # 1.1 10^3/uL (0.0-0.8); MONO % 7.3 % (0.0-5.0); NEUTROPHILS % 76.4 % (36.0-66.0); PLATELET COUNT, AUTOMATED 251 10^3/uL (150-450); RED BLOOD COUNT 3.43 10^6/uL (4.30-6.10); RED CELL DISTRIBUTION WIDTH 14.8 % (11.5-14.5); WHITE BLOOD COUNT 14.4 10^3/uL (4.0-10.0)
[2017-08-07 06:52] LABS: ANION GAP 8 MEQ/L (8-16); BLOOD UREA NITROGEN 18 MG/DL (7-18); CALCIUM LEVEL 8.3 MG/DL (8.8-10.2); CARBON DIOXIDE LEVEL 29 MEQ/L (21-32); CHLORIDE LEVEL 105 MEQ/L (98-107); CREATININE FOR GFR 1.02 MG/DL (0.70-1.30); GLOMERULAR FILTRATION RATE > 60.0 (>42); GLUCOSE, FASTING 64 MG/DL (70-100); MAGNESIUM LEVEL 1.5 MG/DL (1.8-2.4); POTASSIUM SERUM 3.2 MEQ/L (3.5-5.1); SODIUM LEVEL 142 MEQ/L (136-145)
[2017-08-07] MEDS: SYMBICORT 160/4.5MCG INHALER 6GM INH ×2 (07:39→21:00)
[2017-08-07] MEDS: KCL 10MEQ/100ML SWI *ED/ICU* 10 MEQ in APPROPRIATE DILUENT 1 EA IV ×3 (07:59→13:08)
[2017-08-07] MEDS: MAG SULF 1GM/100ML (MAG RUN) 1 GM in APPROPRIATE DILUENT 1 EA IV ×2 (07:59→10:55)
[2017-08-07] MEDS: PANTOPRAZOLE 40MG INJ (PROTONIX) (C9113) IV (08:00)
[2017-08-07] MEDS: TAMSULOSIN 0.4 MG CAP PO ×2 (08:00→20:15)
[2017-08-07] MEDS: ENOXAPARIN 40 MG/0.4 ML SYRINGE (J1650) SC (08:00)
[2017-08-07] MEDS: NORCO, ANEXSIA 5/325MG TABLET (HYDROcodone/ACETAMINOPHEN) PO ×2 (10:55→16:58)
[2017-08-07] MEDS: MONTELUKAST 10 MG TAB PO (20:15)
[2017-08-07] MEDS: LR 1,000 ML IV (20:17)
[2017-08-08] MEDS: PANTOPRAZOLE 40MG INJ (PROTONIX) (C9113) IV ×2 (01:06→08:56)
[2017-08-08] MEDS: MORPHINE 4 MG/ML 1ML VIAL (J2270) IV (01:06)
[2017-08-08] MEDS: IPRATROPIUM 0.5MG/ALBUTEROL 2.5MG INH SOL UD 3ML (DUONEB)(J7620) NEB ×6 (01:32→22:07)
[2017-08-08] MEDS: PIPERACILLIN/TAZOBACTAM SOD 3.375 GM in APPROPRIATE DILUENT 1 EA IV ×4 (02:06→19:55)
[2017-08-08] MEDS: SLF 3 ML SYR IV ×3 (05:34→19:55)
[2017-08-08 06:30] LABS: BASO % 0.2 % (0.0-1.0); EOS # 0.2 10^3/uL (0.0-0.50); EOS % 1.3 % (0.0-3.0); HEMATOCRIT 34.4 % (42.0-52.0); HEMOGLOBIN 11.8 g/dl (14.0-18.0); IMMATURE GRANULOCYTE % 0.7 % (0-3.0); LYMPH # 1.4 10^3/uL (1.5-4.5); LYMPH % 8.6 % (24.0-44.0); MEAN CORPUSCULAR HEMOGLOBIN 31.9 pg (27.0-33.0); MEAN CORPUSCULAR HGB CONC 34.3 g/dl (32.0-36.5); MONO # 0.7 10^3/uL (0.0-0.8); NEUTROPHILS # 13.7 10^3/uL (1.8-7.7); NEUTROPHILS % 85.2 % (36.0-66.0); PLATELET COUNT, AUTOMATED 316 10^3/uL (150-450); RED CELL DISTRIBUTION WIDTH 14.4 % (11.5-14.5); WHITE BLOOD COUNT 16.1 10^3/uL (4.0-10.0)
[2017-08-08 06:46] LABS: ANION GAP 12 MEQ/L (8-16); BLOOD UREA NITROGEN 15 MG/DL (7-18); CALCIUM LEVEL 8.5 MG/DL (8.8-10.2); CARBON DIOXIDE LEVEL 28 MEQ/L (21-32); CHLORIDE LEVEL 99 MEQ/L (98-107); CREATININE FOR GFR 1.07 MG/DL (0.70-1.30); GLOMERULAR FILTRATION RATE > 60.0 (>42); GLUCOSE, FASTING 74 MG/DL (70-100); MAGNESIUM LEVEL 2.2 MG/DL (1.8-2.4); SODIUM LEVEL 139 MEQ/L (136-145)
[2017-08-08] MEDS: SYMBICORT 160/4.5MCG INHALER 6GM INH ×2 (07:34→19:37)
[2017-08-08] MEDS: TAMSULOSIN 0.4 MG CAP PO ×2 (08:57→19:55)
[2017-08-08] MEDS: ENOXAPARIN 40 MG/0.4 ML SYRINGE (J1650) SC (08:57)
[2017-08-08] MEDS: POTASSIUM CHLORIDE 10 MEQ SR TABLET PO ×2 (11:24→14:25)
[2017-08-08] MEDS: LR 1,000 ML IV ×2 (14:25→22:36)
[2017-08-08] MEDS: MONTELUKAST 10 MG TAB PO (19:55)
[2017-08-08] MEDS: NORCO, ANEXSIA 5/325MG TABLET (HYDROcodone/ACETAMINOPHEN) PO (20:16)
[2017-08-09] MEDS: PIPERACILLIN/TAZOBACTAM SOD 3.375 GM in APPROPRIATE DILUENT 1 EA IV ×4 (01:59→20:02)
[2017-08-09] MEDS: NORCO, ANEXSIA 5/325MG TABLET (HYDROcodone/ACETAMINOPHEN) PO (05:17)
[2017-08-09] MEDS: ONDANSETRON 4MG/2ML VIAL (J2405) IV (05:17)
[2017-08-09] MEDS: SLF 3 ML SYR IV ×3 (05:19→20:03)
[2017-08-09 06:20] LABS: HEMATOCRIT 30.5 % (42.0-52.0); HEMOGLOBIN 10.4 g/dl (14.0-18.0); MEAN CORPUSCULAR HEMOGLOBIN 32.1 pg (27.0-33.0); MEAN CORPUSCULAR HGB CONC 34.1 g/dl (32.0-36.5); MEAN CORPUSCULAR VOLUME 94.1 fl (80.0-96.0); PLATELET COUNT, AUTOMATED 307 10^3/uL (150-450); RED BLOOD COUNT 3.24 10^6/uL (4.30-6.10); RED CELL DISTRIBUTION WIDTH 14.6 % (11.5-14.5); WHITE BLOOD COUNT 14.2 10^3/uL (4.0-10.0)
[2017-08-09 06:28] LABS: ADD MANUAL DIFFER YES; DIFF SLIDE NUMBER 25; POSITIVE MORPH POS FLAG
[2017-08-09 06:50] LABS: ANION GAP 14 MEQ/L (8-16); BLOOD UREA NITROGEN 14 MG/DL (7-18); CALCIUM LEVEL 8.3 MG/DL (8.8-10.2); CARBON DIOXIDE LEVEL 23 MEQ/L (21-32); CHLORIDE LEVEL 105 MEQ/L (98-107); CREATININE FOR GFR 1.01 MG/DL (0.70-1.30); GLOMERULAR FILTRATION RATE > 60.0 (>42); GLUCOSE, FASTING 97 MG/DL (70-100); MAGNESIUM LEVEL 1.9 MG/DL (1.8-2.4); SODIUM LEVEL 142 MEQ/L (136-145)
[2017-08-09 07:39] LABS: ATYPICAL LYMPH 1 % (0-5); BANDS 4 % (< 11); EOSINOPHILS 3 % (0-5); LYMPHOCYTES 3 % (16-52); MONOCYTES 2 % (0-8); NEUTROPHILS 87 % (35-75)
[2017-08-09] MEDS: SYMBICORT 160/4.5MCG INHALER 6GM INH ×2 (07:39→21:15)
[2017-08-09] MEDS: IPRATROPIUM 0.5MG/ALBUTEROL 2.5MG INH SOL UD 3ML (DUONEB)(J7620) NEB ×3 (07:39→20:00)
[2017-08-09 07:40] LABS: ANISOCYTOSIS 1+; HYPOCHROMASIA 1+; PLATELET ESTIMATE NORMAL (NORMAL)
[2017-08-09] MEDS: LISINOPRIL 5 MG TAB PO (09:00)
[2017-08-09] MEDS: TAMSULOSIN 0.4 MG CAP PO ×2 (09:48→20:02)
[2017-08-09] MEDS: PANTOPRAZOLE 40MG INJ (PROTONIX) (C9113) IV (09:49)
[2017-08-09] MEDS: ENOXAPARIN 40 MG/0.4 ML SYRINGE (J1650) SC (09:49)
[2017-08-09] MEDS: POTASSIUM CHLORIDE 10 MEQ SR TABLET PO (09:53)
[2017-08-09] MEDS: MONTELUKAST 10 MG TAB PO (20:02)
[2017-08-09] MEDS: LR 1,000 ML IV (22:24)
[2017-08-10] MEDS: PIPERACILLIN/TAZOBACTAM SOD 3.375 GM in APPROPRIATE DILUENT 1 EA IV ×4 (01:29→19:23)
[2017-08-10] MEDS: IPRATROPIUM 0.5MG/ALBUTEROL 2.5MG INH SOL UD 3ML (DUONEB)(J7620) NEB ×4 (01:39→20:00)
[2017-08-10] MEDS: SLF 3 ML SYR IV ×3 (04:30→19:24)
[2017-08-10 06:09] LABS: BASO % 0.3 % (0.0-1.0); EOS # 0.3 10^3/uL (0.0-0.50); EOS % 2.9 % (0.0-3.0); HEMATOCRIT 28.2 % (42.0-52.0); HEMOGLOBIN 9.7 g/dl (14.0-18.0); IMMATURE GRANULOCYTE % 0.6 % (0-3.0); LYMPH # 1.5 10^3/uL (1.5-4.5); LYMPH % 12.4 % (24.0-44.0); MEAN CORPUSCULAR HEMOGLOBIN 32.6 pg (27.0-33.0); MEAN CORPUSCULAR HGB CONC 34.4 g/dl (32.0-36.5); MEAN CORPUSCULAR VOLUME 94.6 fl (80.0-96.0); MONO # 0.5 10^3/uL (0.0-0.8); MONO % 4.1 % (0.0-5.0); NEUTROPHILS # 9.5 10^3/uL (1.8-7.7); NEUTROPHILS % 79.7 % (36.0-66.0); PLATELET COUNT, AUTOMATED 292 10^3/uL (150-450); RED BLOOD COUNT 2.98 10^6/uL (4.30-6.10); RED CELL DISTRIBUTION WIDTH 14.5 % (11.5-14.5); WHITE BLOOD COUNT 11.8 10^3/uL (4.0-10.0)
[2017-08-10 06:35] LABS: ANION GAP 6 MEQ/L (8-16); BLOOD UREA NITROGEN 12 MG/DL (7-18); CALCIUM LEVEL 7.8 MG/DL (8.8-10.2); CARBON DIOXIDE LEVEL 28 MEQ/L (21-32); CHLORIDE LEVEL 108 MEQ/L (98-107); CREATININE FOR GFR 1.02 MG/DL (0.70-1.30); GLOMERULAR FILTRATION RATE > 60.0 (>42); GLUCOSE, FASTING 115 MG/DL (70-100); MAGNESIUM LEVEL 1.6 MG/DL (1.8-2.4); SODIUM LEVEL 142 MEQ/L (136-145)
[2017-08-10] MEDS: SYMBICORT 160/4.5MCG INHALER 6GM INH ×2 (07:39→21:00)
[2017-08-10] MEDS: POTASSIUM CHLORIDE 10 MEQ SR TABLET PO (08:13)
[2017-08-10] MEDS: PANTOPRAZOLE 40MG INJ (PROTONIX) (C9113) IV (08:14)
[2017-08-10] MEDS: MAG SULF 1GM/100ML (MAG RUN) 1 GM in APPROPRIATE DILUENT 1 EA IV ×2 (08:14→10:39)
[2017-08-10] MEDS: TAMSULOSIN 0.4 MG CAP PO ×2 (08:15→19:23)
[2017-08-10] MEDS: LISINOPRIL 5 MG TAB PO (08:16)
[2017-08-10] MEDS: ENOXAPARIN 40 MG/0.4 ML SYRINGE (J1650) SC (08:16)
[2017-08-10] MEDS: NORCO, ANEXSIA 5/325MG TABLET (HYDROcodone/ACETAMINOPHEN) PO ×2 (16:17→21:55)
[2017-08-10] MEDS: MONTELUKAST 10 MG TAB PO (19:23)
[2017-08-10] MEDS: IBUPROFEN 400 MG TAB PO (19:23)
[2017-08-10] MEDS: LR 1,000 ML IV (19:24)
[2017-08-11] MEDS: PIPERACILLIN/TAZOBACTAM SOD 3.375 GM in APPROPRIATE DILUENT 1 EA IV ×4 (01:44→20:16)
[2017-08-11] MEDS: IPRATROPIUM 0.5MG/ALBUTEROL 2.5MG INH SOL UD 3ML (DUONEB)(J7620) NEB ×4 (02:00→20:00)
[2017-08-11] MEDS: SLF 3 ML SYR IV ×3 (05:29→20:17)
[2017-08-11] MEDS: NORCO, ANEXSIA 5/325MG TABLET (HYDROcodone/ACETAMINOPHEN) PO ×3 (05:45→18:55)
[2017-08-11 07:32] LABS: HEMATOCRIT 29.9 % (42.0-52.0); HEMOGLOBIN 10.3 g/dl (14.0-18.0); MEAN CORPUSCULAR HEMOGLOBIN 32.4 pg (27.0-33.0); MEAN CORPUSCULAR HGB CONC 34.4 g/dl (32.0-36.5); PLATELET COUNT, AUTOMATED 319 10^3/uL (150-450); RED BLOOD COUNT 3.18 10^6/uL (4.30-6.10); RED CELL DISTRIBUTION WIDTH 14.6 % (11.5-14.5); WHITE BLOOD COUNT 10.7 10^3/uL (4.0-10.0)
[2017-08-11 07:38] LABS: ANION GAP 7 MEQ/L (8-16); BLOOD UREA NITROGEN 11 MG/DL (7-18); CALCIUM LEVEL 7.4 MG/DL (8.8-10.2); CARBON DIOXIDE LEVEL 28 MEQ/L (21-32); CHLORIDE LEVEL 108 MEQ/L (98-107); CREATININE FOR GFR 1.04 MG/DL (0.70-1.30); GLOMERULAR FILTRATION RATE > 60.0 (>42); GLUCOSE, FASTING 90 MG/DL (70-100); MAGNESIUM LEVEL 1.9 MG/DL (1.8-2.4); POTASSIUM SERUM 3.2 MEQ/L (3.5-5.1); SODIUM LEVEL 143 MEQ/L (136-145)
[2017-08-11] MEDS: POTASSIUM CHLORIDE 10 MEQ SR TABLET PO ×2 (08:37→12:12)
[2017-08-11] MEDS: TAMSULOSIN 0.4 MG CAP PO ×2 (08:38→20:16)
[2017-08-11] MEDS: PANTOPRAZOLE 40MG INJ (PROTONIX) (C9113) IV (08:38)
[2017-08-11] MEDS: ENOXAPARIN 40 MG/0.4 ML SYRINGE (J1650) SC (08:38)
[2017-08-11] MEDS: LISINOPRIL 5 MG TAB PO (08:40)
[2017-08-11] MEDS: SYMBICORT 160/4.5MCG INHALER 6GM INH ×2 (09:07→20:43)
[2017-08-11] MEDS: MAG SULF 1GM/100ML (MAG RUN) 1 GM in APPROPRIATE DILUENT 1 EA IV (12:12)
[2017-08-11] MEDS: MONTELUKAST 10 MG TAB PO (20:16)
[2017-08-12] MEDS: PIPERACILLIN/TAZOBACTAM SOD 3.375 GM in APPROPRIATE DILUENT 1 EA IV ×3 (01:02→14:00)
[2017-08-12] MEDS: NORCO, ANEXSIA 5/325MG TABLET (HYDROcodone/ACETAMINOPHEN) PO ×3 (01:02→15:12)
[2017-08-12] MEDS: IPRATROPIUM 0.5MG/ALBUTEROL 2.5MG INH SOL UD 3ML (DUONEB)(J7620) NEB ×3 (02:39→14:00)
[2017-08-12] MEDS: SLF 3 ML SYR IV ×2 (06:27→14:00)
[2017-08-12 06:59] LABS: BASO % 0.2 % (0.0-1.0); EOS # 0.3 10^3/uL (0.0-0.50); EOS % 2.9 % (0.0-3.0); HEMATOCRIT 28.7 % (42.0-52.0); HEMOGLOBIN 9.9 g/dl (14.0-18.0); IMMATURE GRANULOCYTE % 0.5 % (0-3.0); LYMPH # 1.9 10^3/uL (1.5-4.5); LYMPH % 20.9 % (24.0-44.0); MEAN CORPUSCULAR HEMOGLOBIN 32.8 pg (27.0-33.0); MEAN CORPUSCULAR HGB CONC 34.5 g/dl (32.0-36.5); MONO # 0.7 10^3/uL (0.0-0.8); MONO % 7.1 % (0.0-5.0); NEUTROPHILS # 6.3 10^3/uL (1.8-7.7); NEUTROPHILS % 68.4 % (36.0-66.0); PLATELET COUNT, AUTOMATED 314 10^3/uL (150-450); RED BLOOD COUNT 3.02 10^6/uL (4.30-6.10); RED CELL DISTRIBUTION WIDTH 14.8 % (11.5-14.5); WHITE BLOOD COUNT 9.2 10^3/uL (4.0-10.0)
[2017-08-12 07:17] LABS: ALBUMIN 2.1 GM/DL (3.2-5.2); ALBUMIN/GLOBULIN RATIO 0.64 (1.00-1.93); ALKALINE PHOSPHATASE 88 U/L (45-117); ALT/SGPT 38 U/L (12-78); ANION GAP 7 MEQ/L (8-16); AST/SGOT 39 U/L (7-37); BILIRUBIN,TOTAL 0.4 MG/DL (0.2-1.0); BLOOD UREA NITROGEN 13 MG/DL (7-18); CALCIUM LEVEL 7.8 MG/DL (8.8-10.2); CARBON DIOXIDE LEVEL 26 MEQ/L (21-32); CHLORIDE LEVEL 109 MEQ/L (98-107); CREATININE FOR GFR 1.12 MG/DL (0.70-1.30); GLOMERULAR FILTRATION RATE > 60.0 (>42); GLUCOSE, FASTING 88 MG/DL (70-100); MAGNESIUM LEVEL 1.9 MG/DL (1.8-2.4); POTASSIUM SERUM 3.5 MEQ/L (3.5-5.1); SODIUM LEVEL 142 MEQ/L (136-145); TOTAL PROTEIN 5.4 GM/DL (6.4-8.2)
[2017-08-12] MEDS: SYMBICORT 160/4.5MCG INHALER 6GM INH (09:01)
[2017-08-12] MEDS: PANTOPRAZOLE 40MG TAB (PROTONIX) PO (09:20)
[2017-08-12] MEDS: TAMSULOSIN 0.4 MG CAP PO (09:20)
[2017-08-12] MEDS: POTASSIUM CHLORIDE 10 MEQ SR TABLET PO (09:20)
[2017-08-12] MEDS: ENOXAPARIN 40 MG/0.4 ML SYRINGE (J1650) SC (09:21)
[2017-08-12] MEDS: LISINOPRIL 5 MG TAB PO (09:21)
[2017-08-12] MEDS: IBUPROFEN 400 MG TAB PO (11:28)
== END 2017-08-12 16:20 | disposition home or self-care (01) | DRG 326 ==
LOC: M ED INP 07-29 00:20 → M PED 08-01 21:59 → M MSPAV 08-03 14:17 → M MS5PR 08-10 01:13 → M PCU 07-29 17:04 → M MS4PR 07-30 18:19 → M ED 19:57
PROC: 0DN84ZZ Release Small Intestine, Percutaneous Endoscopic Approach (ICD-10-PCS; 2017-08-03 08:00)
PROC: 0DQ90ZZ Repair Duodenum, Open Approach (ICD-10-PCS; principal; 2017-08-03 08:40)
DX: K56.50 Intestinal adhesions [bands], unspecified as to partial versus complete obstruction (principal); K65.9 Peritonitis, unspecified; J18.9 Pneumonia, unspecified organism; N17.9 Acute kidney failure, unspecified; K91.89 Other postprocedural complications and disorders of digestive system; J44.1 Chronic obstructive pulmonary disease with (acute) exacerbation; I10 Essential (primary) hypertension; R33.9 Retention of urine, unspecified; N40.0 Benign prostatic hyperplasia without lower urinary tract symptoms; R91.8 Other nonspecific abnormal finding of lung field; Z79.899 Other long term (current) drug therapy; Z86.73 Personal history of transient ischemic attack (TIA), and cerebral infarction without residual deficits; N28.1 Cyst of kidney, acquired; E78.5 Hyperlipidemia, unspecified; M10.9 Gout, unspecified; I71.4 Abdominal aortic aneurysm, without rupture; F17.210 Nicotine dependence, cigarettes, uncomplicated; M47.816 Spondylosis without myelopathy or radiculopathy, lumbar region; E86.0 Dehydration; I95.9 Hypotension, unspecified; E87.6 Hypokalemia

== ENCOUNTER 2017-08-13 16:11 | Inpatient (IN) | payer MEDICARE, OTHER ==
[2017-08-13] MEDS: NS 1,000 ML IV (17:10)
[2017-08-13] MEDS: MORPHINE 2 MG/ML 1ML SYRINGE (J2270) IV ×2 (17:11→18:09)
[2017-08-13] MEDS: ONDANSETRON 4MG/2ML VIAL (J2405) IV (17:11)
[2017-08-13 17:27] LABS: BASO % 0.3 % (0.0-1.0); EOS # 0.2 10^3/uL (0.0-0.50); EOS % 1.3 % (0.0-3.0); HEMOGLOBIN 11.2 g/dl (14.0-18.0); IMMATURE GRANULOCYTE % 0.3 % (0-3.0); LYMPH # 0.6 10^3/uL (1.5-4.5); MEAN CORPUSCULAR HEMOGLOBIN 32.7 pg (27.0-33.0); MEAN CORPUSCULAR HGB CONC 33.9 g/dl (32.0-36.5); MEAN CORPUSCULAR VOLUME 96.2 fl (80.0-96.0); MONO # 0.6 10^3/uL (0.0-0.8); MONO % 4.8 % (0.0-5.0); NEUTROPHILS # 10.3 10^3/uL (1.8-7.7); NEUTROPHILS % 88.3 % (36.0-66.0); PLATELET COUNT, AUTOMATED 413 10^3/uL (150-450); RED BLOOD COUNT 3.43 10^6/uL (4.30-6.10); WHITE BLOOD COUNT 11.6 10^3/uL (4.0-10.0)
[2017-08-13 17:37] LABS: INR 0.98; PROTHROMBIN TIME 13.1 SECONDS (12.4-14.5)
[2017-08-13 18:02] LABS: LACTIC ACID SEPSIS PROTOCOL 0.8 MMOL/L (0.4-2.0)
[2017-08-13 18:07] LABS: ALBUMIN 2.4 GM/DL (3.2-5.2); ALBUMIN/GLOBULIN RATIO 0.71 (1.00-1.93); ALKALINE PHOSPHATASE 100 U/L (45-117); ALT/SGPT 45 U/L (12-78); ANION GAP 9 MEQ/L (8-16); AST/SGOT 41 U/L (7-37); BILIRUBIN,DIRECT 0.2 MG/DL (0.0-0.2); BILIRUBIN,TOTAL 0.5 MG/DL (0.2-1.0); BLOOD UREA NITROGEN 18 MG/DL (7-18); CALCIUM LEVEL 8.4 MG/DL (8.8-10.2); CARBON DIOXIDE LEVEL 26 MEQ/L (21-32); CHLORIDE LEVEL 106 MEQ/L (98-107); CREATININE FOR GFR 1.23 MG/DL (0.70-1.30); GLOMERULAR FILTRATION RATE > 60.0 (>42); GLUCOSE, FASTING 79 MG/DL (70-100); LIPASE 143 U/L (73-393); POTASSIUM SERUM 3.9 MEQ/L (3.5-5.1); SODIUM LEVEL 141 MEQ/L (136-145); TOTAL PROTEIN 5.8 GM/DL (6.4-8.2)
[2017-08-13] MEDS: GASTROGRAFIN SOLUTION 30ML PO ×2 (18:15→18:45)
[2017-08-13] MEDS ORDERED: GASTROGRAFIN SOLUTION 30ML (Q9963) As Ordered (18:38)
[2017-08-13] MEDS ORDERED: ISOVUE-370 76% 100ML VIAL (Q9967) As Ordered (19:59)
[2017-08-13] MEDS ORDERED: ONDANSETRON 4MG/2ML VIAL (J2405) IV (23:45)
[2017-08-13] MEDS ORDERED: ALBUTEROL SULFATE 2.5 MG/0.5 ML INH NEB SOLN INH (23:45)
[2017-08-13] MEDS ORDERED: ACETAMINOPHEN TAB 650MG DOSE (2X325MG) PO (23:45)
[2017-08-13] MEDS ORDERED: ALBUTEROL 90 MCG/ACT 8GM HFA INHALER INH (23:45)
[2017-08-14] MEDS: TAMSULOSIN 0.4 MG CAP PO ×2 (00:23→20:07)
[2017-08-14] MEDS: NORCO, ANEXSIA 5/325MG TABLET (HYDROcodone/ACETAMINOPHEN) PO (00:23)
[2017-08-14] MEDS: LR 1,000 ML IV (00:23)
[2017-08-14 07:02] LABS: BASO % 0.3 % (0.0-1.0); EOS # 0.2 10^3/uL (0.0-0.50); EOS % 2.3 % (0.0-3.0); HEMATOCRIT 27.2 % (42.0-52.0); HEMOGLOBIN 9.3 g/dl (14.0-18.0); IMMATURE GRANULOCYTE % 0.4 % (0-3.0); LYMPH # 1.8 10^3/uL (1.5-4.5); LYMPH % 18.7 % (24.0-44.0); MEAN CORPUSCULAR HEMOGLOBIN 32.9 pg (27.0-33.0); MEAN CORPUSCULAR HGB CONC 34.2 g/dl (32.0-36.5); MEAN CORPUSCULAR VOLUME 96.1 fl (80.0-96.0); MONO # 0.7 10^3/uL (0.0-0.8); MONO % 7.4 % (0.0-5.0); NEUTROPHILS # 6.8 10^3/uL (1.8-7.7); NEUTROPHILS % 70.9 % (36.0-66.0); PLATELET COUNT, AUTOMATED 395 10^3/uL (150-450); RED BLOOD COUNT 2.83 10^6/uL (4.30-6.10); RED CELL DISTRIBUTION WIDTH 15.1 % (11.5-14.5); WHITE BLOOD COUNT 9.6 10^3/uL (4.0-10.0)
[2017-08-14 07:29] LABS: ANION GAP 8 MEQ/L (8-16); BLOOD UREA NITROGEN 25 MG/DL (7-18); CALCIUM LEVEL 7.6 MG/DL (8.8-10.2); CARBON DIOXIDE LEVEL 23 MEQ/L (21-32); CHLORIDE LEVEL 110 MEQ/L (98-107); CREATININE FOR GFR 1.33 MG/DL (0.70-1.30); GLOMERULAR FILTRATION RATE 55.8 (>42); GLUCOSE, FASTING 65 MG/DL (70-100); POTASSIUM SERUM 3.3 MEQ/L (3.5-5.1); SODIUM LEVEL 141 MEQ/L (136-145)
[2017-08-14] MEDS: SYMBICORT 160/4.5MCG INHALER 6GM INH ×2 (08:20→18:49)
[2017-08-14] MEDS: LISINOPRIL 5 MG TAB PO (09:06)
[2017-08-14] MEDS: METOCLOPRAMIDE INJ 10MG/2ML VIAL (J2765) IV (09:06)
[2017-08-14] MEDS: KETOROLAC 30 MG/ML VIAL (J1885) IV (09:07)
[2017-08-15 07:12] LABS: ANION GAP 10 MEQ/L (8-16); BLOOD UREA NITROGEN 20 MG/DL (7-18); CALCIUM LEVEL 7.8 MG/DL (8.8-10.2); CARBON DIOXIDE LEVEL 22 MEQ/L (21-32); CHLORIDE LEVEL 111 MEQ/L (98-107); CREATININE FOR GFR 1.26 MG/DL (0.70-1.30); GLOMERULAR FILTRATION RATE 59.4 (>42); GLUCOSE, FASTING 94 MG/DL (70-100); POTASSIUM SERUM 2.8 MEQ/L (3.5-5.1); SODIUM LEVEL 143 MEQ/L (136-145)
[2017-08-15] MEDS: SYMBICORT 160/4.5MCG INHALER 6GM INH ×2 (07:21→20:09)
[2017-08-15] MEDS: LISINOPRIL 5 MG TAB PO (09:31)
[2017-08-15] MEDS: POTASSIUM CHLORIDE 10 MEQ SR TABLET PO ×2 (09:31→20:14)
[2017-08-15] MEDS: KETOROLAC 30 MG/ML VIAL (J1885) IV (09:31)
[2017-08-15] MEDS: TAMSULOSIN 0.4 MG CAP PO (20:13)
[2017-08-16 06:42] LABS: ANION GAP 7 MEQ/L (8-16); BLOOD UREA NITROGEN 14 MG/DL (7-18); CALCIUM LEVEL 7.7 MG/DL (8.8-10.2); CARBON DIOXIDE LEVEL 23 MEQ/L (21-32); CHLORIDE LEVEL 115 MEQ/L (98-107); CREATININE FOR GFR 1.06 MG/DL (0.70-1.30); GLOMERULAR FILTRATION RATE > 60.0 (>42); GLUCOSE, FASTING 104 MG/DL (70-100); SODIUM LEVEL 145 MEQ/L (136-145)
[2017-08-16] MEDS: SYMBICORT 160/4.5MCG INHALER 6GM INH (07:37)
[2017-08-16] MEDS: LISINOPRIL 5 MG TAB PO (08:33)
[2017-08-16] MEDS: POTASSIUM CHLORIDE 10 MEQ SR TABLET PO ×2 (08:33→10:38)
== END 2017-08-16 11:10 | disposition home or self-care (01) | DRG 390 ==
LOC: M MS5PR 08-14 01:52 → M ED 16:11 → M ED INP 23:36
DX: K56.609 Unspecified intestinal obstruction, unspecified as to partial versus complete obstruction (principal); I10 Essential (primary) hypertension; F17.210 Nicotine dependence, cigarettes, uncomplicated; R33.9 Retention of urine, unspecified; J44.9 Chronic obstructive pulmonary disease, unspecified; E78.5 Hyperlipidemia, unspecified; Z86.73 Personal history of transient ischemic attack (TIA), and cerebral infarction without residual deficits; Z98.41 Cataract extraction status, right eye; Z98.42 Cataract extraction status, left eye; Z96.0 Presence of urogenital implants; Z79.899 Other long term (current) drug therapy

== ENCOUNTER 2017-08-20 15:48 | Inpatient (IN) | payer MEDICARE, OTHER ==
[2017-08-20 18:56] LABS: HEMATOCRIT 29.1 % (42.0-52.0); HEMOGLOBIN 9.8 g/dl (14.0-18.0); MEAN CORPUSCULAR HEMOGLOBIN 32.1 pg (27.0-33.0); MEAN CORPUSCULAR HGB CONC 33.7 g/dl (32.0-36.5); MEAN CORPUSCULAR VOLUME 95.4 fl (80.0-96.0); PLATELET COUNT, AUTOMATED 377 10^3/uL (150-450); RED BLOOD COUNT 3.05 10^6/uL (4.30-6.10); RED CELL DISTRIBUTION WIDTH 15.9 % (11.5-14.5); WHITE BLOOD COUNT 21.6 10^3/uL (4.0-10.0)
[2017-08-20 19:00] LABS: ADD MANUAL DIFFER YES; DIFF SLIDE NUMBER 301; POS COUNT POS FLAG
[2017-08-20 19:20] LABS: BANDS 1 % (< 11); EOSINOPHILS 2 % (0-5); LYMPHOCYTES 11 % (16-52); MONOCYTES 1 % (0-8); NEUTROPHILS 85 % (35-75)
[2017-08-20 19:21] LABS: ANISOCYTOSIS 1+; PLATELET ESTIMATE NORMAL (NORMAL); POIKILOCYTOSIS 1+
[2017-08-20 19:23] LABS: BURR CELLS 1+; TOXIC VACUOLATION 1+
[2017-08-20 19:25] LABS: SCHISTOCYTES 1+
[2017-08-20 19:26] LABS: PLATELET CLUMPS SMALL AMT
[2017-08-20] MEDS: PERCOCET 5MG/325MG TAB PO (19:37)
[2017-08-20 20:07] LABS: ANION GAP 9 MEQ/L (8-16); BLOOD UREA NITROGEN 45 MG/DL (7-18); CALCIUM LEVEL 7.8 MG/DL (8.8-10.2); CARBON DIOXIDE LEVEL 24 MEQ/L (21-32); CHLORIDE LEVEL 107 MEQ/L (98-107); CK-MB VALUE MASS 1.3 NG/ML (0.0-3.6); CPK CREATINE PHOSPHOKINASE 67 U/L (39-308); CREATININE FOR GFR 1.87 MG/DL (0.70-1.30); GLOMERULAR FILTRATION RATE 37.7 (>42); GLUCOSE, FASTING 103 MG/DL (70-100); MB/CK RELATIVE INDEX 1.94 (< OR =4); SODIUM LEVEL 140 MEQ/L (136-145); TROPONIN I < 0.02 NG/ML (< 0.10)
[2017-08-20] MEDS ORDERED: PERCOCET 5MG/325MG TAB PO (21:45)
[2017-08-20] MEDS ORDERED: ONDANSETRON 4MG/2ML VIAL (J2405) IV (21:45)
[2017-08-20] MEDS ORDERED: ACETAMINOPHEN TAB 650MG DOSE (2X325MG) PO (21:45)
[2017-08-20] MEDS ORDERED: IPRATROPIUM 0.5MG/ALBUTEROL 2.5MG INH SOL UD 3ML (DUONEB)(J7620) NEB (21:45)
[2017-08-20] MEDS: NS 1,000 ML IV (22:00)
[2017-08-21] MEDS ORDERED: diphenhydrAMINE 25 MG CAP PO (00:15)
[2017-08-21] MEDS: IPRATROPIUM 0.5MG/ALBUTEROL 2.5MG INH SOL UD 3ML (DUONEB)(J7620) NEB ×4 (00:19→23:44)
[2017-08-21] MEDS: TAMSULOSIN 0.4 MG CAP PO ×2 (03:50→20:56)
[2017-08-21] MEDS: SIMVASTATIN 20 MG TAB PO ×2 (03:50→20:57)
[2017-08-21] MEDS: MONTELUKAST 10 MG TAB PO ×2 (04:22→20:57)
[2017-08-21 06:38] LABS: HEMATOCRIT 24.8 % (42.0-52.0); HEMOGLOBIN 8.6 g/dl (14.0-18.0); MEAN CORPUSCULAR HEMOGLOBIN 32.1 pg (27.0-33.0); MEAN CORPUSCULAR HGB CONC 34.7 g/dl (32.0-36.5); MEAN CORPUSCULAR VOLUME 92.5 fl (80.0-96.0); PLATELET COUNT, AUTOMATED 408 10^3/uL (150-450); RED BLOOD COUNT 2.68 10^6/uL (4.30-6.10); RED CELL DISTRIBUTION WIDTH 15.7 % (11.5-14.5); WHITE BLOOD COUNT 16.1 10^3/uL (4.0-10.0)
[2017-08-21 07:09] LABS: ALBUMIN 1.9 GM/DL (3.2-5.2); ANION GAP 10 MEQ/L (8-16); BLOOD UREA NITROGEN 36 MG/DL (7-18); CALCIUM LEVEL 8.2 MG/DL (8.8-10.2); CARBON DIOXIDE LEVEL 21 MEQ/L (21-32); CHLORIDE LEVEL 109 MEQ/L (98-107); CREATININE FOR GFR 1.62 MG/DL (0.70-1.30); GLOMERULAR FILTRATION RATE 44.4 (>42); GLUCOSE, FASTING 90 MG/DL (70-100); PHOSPHORUS LEVEL 2.6 MG/DL (2.5-4.9); POTASSIUM SERUM 3.5 MEQ/L (3.5-5.1); SODIUM LEVEL 140 MEQ/L (136-145)
[2017-08-21 08:36] LABS: INR 1.07
[2017-08-21] MEDS: POTASSIUM CHLORIDE 10 MEQ SR TABLET PO (08:42)
[2017-08-21] MEDS: CEFTRIAXONE SOD 1 GM in APPROPRIATE DILUENT 1 EA IV (08:42)
[2017-08-21] MEDS: FIBER-CON 625 MG TAB PO ×2 (08:43→20:56)
[2017-08-21] MEDS: MULTIVITAMINS/MINERALS THERAP 1 TAB PO (08:43)
[2017-08-21] MEDS: ALLOPURINOL 300 MG TAB PO (08:43)
[2017-08-21] MEDS: LORATADINE 10 MG TAB PO (08:43)
[2017-08-21] MEDS: CLOPIDOGREL 75 MG TAB PO (08:43)
[2017-08-21 08:54] LABS: CPK CREATINE PHOSPHOKINASE 50 U/L (39-308); TROPONIN I < 0.02 NG/ML (< 0.10)
[2017-08-21] MEDS ORDERED: ENTER DRUG NAME HERE (PATIENT'S OWN MED) INH (09:00)
[2017-08-21] MEDS: SYMBICORT 160/4.5MCG INHALER 6GM INH ×2 (09:16→21:00)
[2017-08-21] MEDS: NS 1,000 ML IV ×2 (10:48→20:58)
[2017-08-21] MEDS: NORCO, ANEXSIA 5/325MG TABLET (HYDROcodone/ACETAMINOPHEN) PO ×2 (13:54→20:58)
[2017-08-21] MEDS: MORPHINE 4 MG/ML 1ML VIAL (J2270) IV (13:55)
[2017-08-21] MEDS: predniSONE 10 MG TAB PO (16:38)
[2017-08-21 17:16] LABS: APPEARANCE, URINE CLEAR (CLEAR); BACTERIA, URINE AUTO 1+ (NEGATIVE); BILIRUBIN, URINE AUTO NEGATIVE (NEGATIVE); BLOOD, URINE BLOOD 2+ (NEGATIVE); COLOR, URINE YELLOW (YELLOW); GLUCOSE, URINE (UA) AUTO NEGATIVE (NEGATIVE); KETONE, URINE AUTO NEGATIVE (NEGATIVE); LEUKOCYTE ESTERASE, URINE AUTO 1+ (NEGATIVE); MUCUS, URINE SMALL (NEGATIVE); NITRITE, URINE AUTO POSITIVE (NEGATIVE); PROTEIN, URINE AUTO NEGATIVE (NEGATIVE); RBC, URINE AUTO 50 /HPF (0-3); SPECIFIC GRAVITY URINE AUTO 1.015 (1.002-1.035); SQUAMOUS EPITHELIAL CELL UR AU 0 /HPF (0-6); UROBILINOGEN, URINE AUTO 0.2 mg/dL (0.0-2.0); WBC, URINE AUTO 56 /HPF (0-3)
[2017-08-21 17:34] LABS: SODIUM,RANDOM URINE 47 MEQ/L
[2017-08-21] MEDS: HEPARIN SOD (PORCINE) 5000 UNITS/ML VIAL SQ (20:57)
[2017-08-21] MEDS ORDERED: ENTER DRUG NAME HERE (PATIENT'S OWN MED) PO (21:00)
[2017-08-22 05:54] LABS: HEMATOCRIT 26.9 % (42.0-52.0); HEMOGLOBIN 9.3 g/dl (14.0-18.0); MEAN CORPUSCULAR HEMOGLOBIN 32.6 pg (27.0-33.0); MEAN CORPUSCULAR HGB CONC 34.6 g/dl (32.0-36.5); MEAN CORPUSCULAR VOLUME 94.4 fl (80.0-96.0); PLATELET COUNT, AUTOMATED 378 10^3/uL (150-450); RED BLOOD COUNT 2.85 10^6/uL (4.30-6.10); RED CELL DISTRIBUTION WIDTH 15.6 % (11.5-14.5); WHITE BLOOD COUNT 6.8 10^3/uL (4.0-10.0)
[2017-08-22] MEDS: HEPARIN SOD (PORCINE) 5000 UNITS/ML VIAL SQ (05:57)
[2017-08-22 06:14] LABS: ALBUMIN 1.9 GM/DL (3.2-5.2); ANION GAP 9 MEQ/L (8-16); BLOOD UREA NITROGEN 24 MG/DL (7-18); CALCIUM LEVEL 8.1 MG/DL (8.8-10.2); CARBON DIOXIDE LEVEL 22 MEQ/L (21-32); CHLORIDE LEVEL 110 MEQ/L (98-107); CREATININE FOR GFR 1.25 MG/DL (0.70-1.30); GLOMERULAR FILTRATION RATE 59.9 (>42); GLUCOSE, FASTING 182 MG/DL (70-100); PHOSPHORUS LEVEL 3.3 MG/DL (2.5-4.9); POTASSIUM SERUM 3.9 MEQ/L (3.5-5.1); SODIUM LEVEL 141 MEQ/L (136-145)
[2017-08-22] MEDS: SYMBICORT 160/4.5MCG INHALER 6GM INH (07:46)
[2017-08-22] MEDS: IPRATROPIUM 0.5MG/ALBUTEROL 2.5MG INH SOL UD 3ML (DUONEB)(J7620) NEB (07:46)
[2017-08-22] MEDS: ALLOPURINOL 300 MG TAB PO (10:05)
[2017-08-22] MEDS: CLOPIDOGREL 75 MG TAB PO (10:05)
[2017-08-22] MEDS: LORATADINE 10 MG TAB PO (10:05)
[2017-08-22] MEDS: NS 1,000 ML IV (10:05)
[2017-08-22] MEDS: predniSONE 10 MG TAB PO (10:05)
[2017-08-22] MEDS: FIBER-CON 625 MG TAB PO (10:05)
[2017-08-22] MEDS: MULTIVITAMINS/MINERALS THERAP 1 TAB PO (10:05)
[2017-08-22] MEDS: FINASTERIDE 5 MG TAB PO (10:05)
[2017-08-22] MEDS: CEFTRIAXONE SOD 1 GM in APPROPRIATE DILUENT 1 EA IV (11:35)
== END 2017-08-22 13:15 | disposition home health service (06) | DRG 184 ==
LOC: M MSPAV 08-21 15:44 → M ED 15:48 → M ED INP 21:39
DX: S22.42XA Multiple fractures of ribs, left side, initial encounter for closed fracture (principal); N17.9 Acute kidney failure, unspecified; E44.0 Moderate protein-calorie malnutrition; J44.1 Chronic obstructive pulmonary disease with (acute) exacerbation; I10 Essential (primary) hypertension; N40.1 Benign prostatic hyperplasia with lower urinary tract symptoms; F17.210 Nicotine dependence, cigarettes, uncomplicated; E78.5 Hyperlipidemia, unspecified; Z98.41 Cataract extraction status, right eye; Z98.42 Cataract extraction status, left eye; W01.0XXA Fall on same level from slipping, tripping and stumbling without subsequent striking against object, initial encounter; Z86.73 Personal history of transient ischemic attack (TIA), and cerebral infarction without residual deficits; Y93.01 Activity, walking, marching and hiking; Z79.02 Long term (current) use of antithrombotics/antiplatelets; Z79.899 Other long term (current) drug therapy

== ENCOUNTER → 2017-09-05 | Outpatient (CLI) | payer MEDICARE, OTHER ==
[~2017-09-05] MED LIST: E-Z-PAQUE 96% w/w SUSP 176GM BTL As Ordered
== END ==
LOC: M RAD 08:49
DX: K56.690 Other partial intestinal obstruction (principal)
CPT/HCPCS: 74250

== ENCOUNTER → 2017-09-15 | Outpatient (REF) | payer MEDICARE, OTHER ==
[2017-09-15 19:41] LABS: APPEARANCE, URINE CLOUDY (CLEAR); BACTERIA, URINE AUTO 1+ (NEGATIVE); BILIRUBIN, URINE AUTO NEGATIVE (NEGATIVE); BLOOD, URINE BLOOD 1+ (NEGATIVE); COLOR, URINE YELLOW (YELLOW); GLUCOSE, URINE (UA) AUTO NEGATIVE (NEGATIVE); KETONE, URINE AUTO NEGATIVE (NEGATIVE); LEUKOCYTE ESTERASE, URINE AUTO 3+ (NEGATIVE); MUCUS, URINE SMALL (NEGATIVE); NITRITE, URINE AUTO POSITIVE (NEGATIVE); PROTEIN, URINE AUTO 1+ mg/dL (NEGATIVE); RBC, URINE AUTO 8 /HPF (0-3); SPECIFIC GRAVITY URINE AUTO 1.014 (1.002-1.035); SQUAMOUS EPITHELIAL CELL UR AU 1 /HPF (0-6); UROBILINOGEN, URINE AUTO 0.2 mg/dL (0.0-2.0); WBC, URINE AUTO TNTC /HPF (0-3)
== END ==
LOC: M SMT 17:09
DX: R30.0 Dysuria (principal)
CPT/HCPCS: 81001

== ENCOUNTER → 2017-10-13 | Outpatient (REF) | payer MEDICARE, OTHER ==
[2017-10-13 17:41] LABS: APPEARANCE, URINE CLEAR (CLEAR); BACTERIA, URINE AUTO NEGATIVE (NEGATIVE); BILIRUBIN, URINE AUTO NEGATIVE (NEGATIVE); BLOOD, URINE BLOOD NEGATIVE (NEGATIVE); COLOR, URINE YELLOW (YELLOW); GLUCOSE, URINE (UA) AUTO NEGATIVE (NEGATIVE); KETONE, URINE AUTO NEGATIVE (NEGATIVE); LEUKOCYTE ESTERASE, URINE AUTO NEGATIVE (NEGATIVE); NITRITE, URINE AUTO NEGATIVE (NEGATIVE); PROTEIN, URINE AUTO NEGATIVE (NEGATIVE); RBC, URINE AUTO 0 /HPF (0-3); SPECIFIC GRAVITY URINE AUTO 1.017 (1.002-1.035); SQUAMOUS EPITHELIAL CELL UR AU 0 /HPF (0-6); UROBILINOGEN, URINE AUTO 0.2 mg/dL (0.0-2.0); WBC, URINE AUTO 1 /HPF (0-3)
== END ==
LOC: M SMT 17:13
DX: N39.0 Urinary tract infection, site not specified (principal)
CPT/HCPCS: 81001

== ENCOUNTER → 2017-10-16 | Outpatient (CLI) | payer MEDICARE, OTHER, MEDICAID | LOC: M LRY 15:16 | DX: J44.1 Chronic obstructive pulmonary disease with (acute) exacerbation (principal); R91.8 Other nonspecific abnormal finding of lung field | CPT/HCPCS: 71046; 94640 ==

== ENCOUNTER → 2018-02-09 | Outpatient (CLI) | payer MEDICARE, OTHER, MEDICAID | LOC: M LRY 10:01 | DX: J98.11 Atelectasis (principal); R07.9 Chest pain, unspecified | CPT/HCPCS: 71046; 93005 ==

== ENCOUNTER → 2018-02-25 | Outpatient (CLI) | payer MEDICARE, OTHER, MEDICAID | LOC: M LRY 14:43 | DX: R06.02 Shortness of breath (principal) | CPT/HCPCS: 94640 ==

== ENCOUNTER 2018-06-09 09:27 | Emergency (ER) | payer MEDICARE, OTHER ==
[~2018-06-09] VITALS: Ht 172.7 cm; Wt 72.7 kg
[~2018-06-09 09:27] MED LIST changes: +ALBU17IN INH; +ALBU83IN INH; +AMLO10TA4 PO; +AMLO5TAB4 PO; +ATEN100T PO; +BACITAB PO; +BENA25TA10 PO; +CIPR500T3 PO; +CLAR1TAB2 PO; +DALI1TAB2 PO; -E-Z-PAQUE 96% w/w SUSP 176GM BTL As Ordered; +FIBE625T PO; +FINA5TAB2 PO; +FLOM0.4C39 PO; +KLOR20TA42 PO; +LACT1TAB4 PO; +LEVA250T13 PO; +LISI-542 PO; +LOVA20TA2 PO; +MONT10TA2 PO; +NORC1TAB4 PO; +NORCOTAB PO; +PLAV1TAB2 PO; +PRED10TA2 PO; +SPIR12.9 INH; +SYMB16INH INH; +TYLETAB15 PO; +VENTAER INH; +VITMTA PO; +ZITHTAB PO; +ZYLO300T6 PO
[2018-06-09] MEDS ORDERED: ASPIRIN 81 MG CHEW TABLET PO ONE (10:00)
[2018-06-09 10:13] LABS: BASO # 0.1 10^3/uL (0.0-0.2); BASO % 0.6 % (0.0-1.0); EOS # 0.2 10^3/uL (0.0-0.50); EOS % 2.6 % (0.0-3.0); HEMATOCRIT 34.5 % (42.0-52.0); HEMOGLOBIN 11.8 g/dl (13.5-17.5); LYMPH # 1.6 10^3/uL (1.5-4.5); LYMPH % 17.8 % (24.0-44.0); MEAN CORPUSCULAR HEMOGLOBIN 33.1 pg (27.0-33.0); MEAN CORPUSCULAR HGB CONC 34.2 g/dl (32.0-36.5); MEAN CORPUSCULAR VOLUME 96.9 fl (80.0-96.0); MONO # 0.6 10^3/uL (0.0-0.8); NEUTROPHILS # 6.4 10^3/uL (1.8-7.7); NEUTROPHILS % 71.8 % (36.0-66.0); PLATELET COUNT, AUTOMATED 272 10^3/uL (150-450); RED BLOOD COUNT 3.56 10^6/uL (4.30-6.10); WHITE BLOOD COUNT 8.9 10^3/uL (4.0-10.0)
--- NOTE | 2018-06-09 10:18 | REP ---
Clinical: Acute chest pain. Comparison: 02/25/2018. Findings: Mediastinum and cardiac silhouette are normal. Lung miller demonstrate chronic interstitial changes. Trace basilar atelectasis cannot be excluded. No effusion. No pneumothorax. Skeletal structures stable. Impression: Chronic stable changes. Trace basilar atelectasis cannot be excluded. Electronically Signed by Christiano Patel MD 06/09/2018 10:09 A
[2018-06-09 10:43] LABS: ALBUMIN 3.2 GM/DL (3.2-5.2); ALT/SGPT 13 U/L (12-78); BILIRUBIN,DIRECT 0.2 MG/DL (0.0-0.2); BILIRUBIN,TOTAL 0.5 MG/DL (0.2-1.0); BLOOD UREA NITROGEN 16 MG/DL (7-18); CALCIUM LEVEL 8.4 MG/DL (8.8-10.2); CARBON DIOXIDE LEVEL 26 MEQ/L (21-32); CHLORIDE LEVEL 104 MEQ/L (98-107); CK-MB VALUE MASS < 1.0 NG/ML (<3.6); CPK CREATINE PHOSPHOKINASE 63 U/L (39-308); CREATININE FOR GFR 1.06 MG/DL (0.70-1.30); GLOMERULAR FILTRATION RATE > 60.0 (>42); GLUCOSE, FASTING 119 MG/DL (70-100); LIPASE 73 U/L (73-393); MB/CK RELATIVE INDEX 1.59 (< OR =4); NT-PRO BNP 501 PG/ML (<450); POTASSIUM SERUM 2.7 MEQ/L (3.5-5.1); SODIUM LEVEL 139 MEQ/L (136-145); TOTAL PROTEIN 7.3 GM/DL (6.4-8.2); TROPONIN I < 0.02 NG/ML (< 0.10)
[2018-06-09] MEDS ORDERED: POTASSIUM CHLORIDE 10 MEQ SR TABLET PO ONE (10:45)
[2018-06-09] MEDS ORDERED: ISOVUE-370 76% 100ML VIAL (Q9967) As Ordered ONE (12:35)
[2018-06-09 12:43] LABS: CK-MB VALUE MASS < 1.0 NG/ML (<3.6); CPK CREATINE PHOSPHOKINASE 60 U/L (39-308); MB/CK RELATIVE INDEX 1.67 (< OR =4); TROPONIN I < 0.02 NG/ML (< 0.10)
--- NOTE | 2018-06-09 13:01 | REP ---
Clinical: Dyspnea and acute right-sided chest pain. Technique: Axial contrast enhanced images from the thoracic inlet to the upper abdomen using 100 ml Isovue 370 intravenous contrast material with coronal and sagittal re-formations. Findings: Satisfactory enhancement of the pulmonary vasculature is achieved and no filling defects are identified to suggest pulmonary embolus. Advance COPD/emphysematous changes are appreciated with mild bibasilar atelectasis. Atherosclerotic changes to the thoracic aorta and coronary arteries noted without aortic aneurysm. No cardiomegaly or pericardial effusion. No pneumothorax. Tracheobronchial tree is patent. No significant adenopathy. Limited evaluation of the upper abdomen demonstrates moderate acute appearing bilateral perinephric/retroperitoneal stranding. Which may reflect an acute process including pyelonephritis and/or pancreatitis. Impression: 1. No evidence for pulmonary embolus. 2. Advanced emphysematous changes. 3. Trace bibasilar atelectasis. 4. Moderate acute appearing inflammatory stranding in the visualized retroperitoneal space. Differential diagnosis includes the possibility of pyelonephritis and pancreatitis. Electronically Signed by Christiano Patel MD 06/09/2018 12:53 P
[2018-06-09 13:15] VITALS: BP 179/94
--- NOTE | 2018-06-10 14:45 | ECGEPIP ---
Stationary ECG Study [facility] - ED Test Date: 2018-06-09 Pat Name: DEE ORONA Department: Room: - Gender: M Film Writer: kayleen : 1940 Requested By: Timothy Grayson Order Number: [id number] Reading MD: Lise Colon Measurements Intervals [place] Rate: 83 P: 13 MN: 142 QRS: 68 QRSD: 100 T: 59 QT: 405 QTc: 478 Interpretive Statements SINUS RHYTHM POSSIBLE LEFT ATRIAL ENLARGEMENT NSTTW ABNORMALITY PROLONGED QTC INCREASED RATE/QTC COMPARED 08/20/17 Electronically Signed On 06-10-2018 14:45:10 EST by Lise Colon
--- NOTE | 2018-06-10 14:48 | ECGEPIP ---
Stationary ECG Study [facility] - ED Test Date: 2018-06-09 Pat Name: DEE ORONA Department: Room: - Gender: M Teacher Resource: balbina : 1940 Requested By: Timothy Grayson Order Number: [id number] Reading MD: Lise Colon Measurements Intervals [place] Rate: 79 P: 39 [place]: 152 QRS: 61 QRSD: 105 T: 59 QT: 410 QTc: 471 Interpretive Statements SINUS RHYTHM POSSIBLE LEFT ATRIAL ENLARGEMENT NSTTW ABNORMALITY PROLONGED QTC SIMILAR 9:44 Electronically Signed On 06-10-2018 14:48:00 EST by Lise Colon
--- NOTE | 2018-06-13 08:43 | ED PDOC ---
Post-Departure Follow-Up radiology report faxed to Lise Ibarra MD Jun 13, 2018 08:43
== END 2018-06-09 13:39 | disposition home or self-care (01) ==
LOC: M ED 09:27
DX: J44.9 Chronic obstructive pulmonary disease, unspecified (principal); R07.89 Other chest pain; I10 Essential (primary) hypertension; E78.5 Hyperlipidemia, unspecified; N40.0 Benign prostatic hyperplasia without lower urinary tract symptoms; R91.1 Solitary pulmonary nodule; F17.210 Nicotine dependence, cigarettes, uncomplicated
CPT/HCPCS: 71045; 71275; 80048; 80076; 82550; 82553; 83690; 83880; 84484; 85025; 85379; 87040; 93005; 93041; 94760; 99285; Q9967

== ENCOUNTER 2018-07-22 02:19 | Inpatient (IN) | payer MEDICARE, OTHER ==
[~2018-07-22] VITALS: Ht 172.7 cm; Wt 70.5 kg
[2018-07-22] MEDS: LR 1,000 ML IV SCH ×3 (01:12→17:54)
[~2018-07-22 02:19] MED LIST changes: -AMLO10TA4 PO; +AMLO10TA5 PO; -AMLO5TAB4 PO; +AMLO5TAB6 PO
[2018-07-22] MEDS ORDERED: METOCLOPRAMIDE INJ 10MG/2ML VIAL (J2765) IV ONE (03:00)
[2018-07-22] MEDS ORDERED: MORPHINE 10 MG/ML 1ML VIAL (J2270) IV ONE (03:00)
[2018-07-22] MEDS: GASTROGRAFIN SOLUTION 30ML PO SCH ×2 (03:00→03:53)
[2018-07-22] MEDS ORDERED: NS 1,000 ML IV ONE (03:00)
[2018-07-22] MEDS ORDERED: KLOR20TA42 PO (03:41)
[2018-07-22] MEDS ORDERED: DIPH25CA PO (03:41)
[2018-07-22] MEDS ORDERED: CALCTAB6 PO (03:41)
[2018-07-22] MEDS ORDERED: PLAV1TAB2 PO (03:41)
[2018-07-22] MEDS ORDERED: ALBU83IN INH (03:41)
[2018-07-22] MEDS ORDERED: ASPI1TAB PO (03:41)
[2018-07-22] MEDS ORDERED: DALI1TAB2 PO (03:41)
[2018-07-22] MEDS ORDERED: SPIR12.9 INH (03:41)
[2018-07-22] MEDS ORDERED: DOCU100C16 PO (03:41)
[2018-07-22] MEDS ORDERED: SENN8.6T7 PO (03:41)
[2018-07-22] MEDS ORDERED: VITMTA PO (03:41)
[2018-07-22] MEDS ORDERED: METO50TA7 PO (03:41)
[2018-07-22] MEDS ORDERED: AMLO2.5T3 PO (03:41)
[2018-07-22] MEDS ORDERED: MONT10TA2 PO (03:41)
[2018-07-22] MEDS ORDERED: SYMB16INH INH (03:41)
[2018-07-22] MEDS ORDERED: VENTAER INH (03:41)
[2018-07-22] MEDS ORDERED: FLOM0.4C39 PO (03:41)
[2018-07-22] MEDS ORDERED: ZYLO300T6 PO (03:41)
[2018-07-22] MEDS ORDERED: MUPI2OI EXT (03:41)
[2018-07-22 03:53] LABS: HEMATOCRIT 38.2 % (42.0-52.0); HEMOGLOBIN 12.6 g/dl (13.5-17.5); MEAN CORPUSCULAR HEMOGLOBIN 32.1 pg (27.0-33.0); MEAN CORPUSCULAR VOLUME 97.4 fl (80.0-96.0); PLATELET COUNT, AUTOMATED 274 10^3/uL (150-450); RED BLOOD COUNT 3.92 10^6/uL (4.30-6.10); WHITE BLOOD COUNT 4.8 10^3/uL (4.0-10.0)
[2018-07-22] MEDS ORDERED: IPRATROPIUM 0.5MG/ALBUTEROL 2.5MG INH SOL UD 3ML (DUONEB)(J7620) NEB ONE (04:00)
[2018-07-22 04:18] LABS: ALBUMIN 3.3 GM/DL (3.2-5.2); BILIRUBIN,DIRECT 0.2 MG/DL (0.0-0.2); BILIRUBIN,TOTAL 0.6 MG/DL (0.2-1.0); CALCIUM LEVEL 8.4 MG/DL (8.8-10.2); CREATININE FOR GFR 1.48 MG/DL (0.70-1.30); GLOMERULAR FILTRATION RATE 49.2 (>42); POTASSIUM SERUM 3.8 MEQ/L (3.5-5.1); TOTAL PROTEIN 7.3 GM/DL (6.4-8.2)
[2018-07-22 04:20] LABS: EOSINOPHILS 2 % (0-5); LYMPHOCYTES 13 % (16-52); METAMYELOCYTES 2 % (0-0); MONOCYTES 4 % (0-8); NEUTROPHILS 71 % (35-75); PLATELET ESTIMATE NORMAL (NORMAL)
[2018-07-22 04:21] LABS: ANISOCYTOSIS 1+
[2018-07-22 04:29] LABS: INR 1.03; PROTHROMBIN TIME 13.6 SECONDS (12.1-14.4)
[2018-07-22 04:30] LABS: PARTIAL THROMBOPLASTIN TIME 37.6 SECONDS (25.4-37.6)
--- NOTE | 2018-07-22 06:32 | REPVR ---
EXAM: CT Abdomen and Pelvis Without Contrast EXAM DATE/TIME: 07/22/2018 2:51 AM CLINICAL HISTORY: 77 years old, male; Pain; Abdominal pain; Generalized; Additional info: Eval obstruction TECHNIQUE: Axial computed tomography images of the abdomen and pelvis without contrast. All CT scans at this facility use at least one of these dose optimization techniques: automated exposure control; mA and/or kV adjustment per patient size (includes targeted exams where dose is matched to clinical indication); or iterative reconstruction. Coronal and sagittal reformatted images were created and reviewed. COMPARISON: CT ABD PELVIS W/O CONTRAST 07/31/2017 11:02 AM FINDINGS: Lower thorax: Mild bibasilar interstitial prominence and minimal fibro-atelectatic change. ABDOMEN: Liver: Normal. No mass. Gallbladder and bile ducts: Normal. No calcified stones. No ductal dilation. Pancreas: Normal. No ductal dilation. Spleen: Normal. No splenomegaly. Adrenals: Normal. No mass. Kidneys and ureters: There are bilateral renal cysts measuring up to 4.3 cm on the right. Stomach and bowel: Moderate distention of the stomach with contrast and gas. Distended proximal small bowel with air-fluid levels and collapsed distal small bowel consistent with small bowel obstruction. There appears to be an abrupt point of transition in the anterior left abdomen to the left of the umbilicus on series 201, image #85 and series 202, image #28. This appears to be a different location compared to the prior study. Colonic diverticulosis without diverticulitis. Appendix: There are no changes of appendicitis. A normal appendix is not seen. PELVIS: Bladder: Unremarkable as visualized. Reproductive: Unremarkable as visualized. ABDOMEN and PELVIS: Intraperitoneal space: Normal. No free air. No significant fluid collection. Bones/joints: No acute fracture. No dislocation. Soft tissues: See Stomach And Bowel Finding. Vasculature: There is mild calcification of the abdominal aorta with extension into the iliac arteries. Lymph nodes: Normal. No enlarged lymph nodes. IMPRESSION: 1. Small bowel obstruction. There appears to be point of transition or obstruction in the anterior left abdomen. 2. Mild bibasilar interstitial prominence and minimal fibro-atelectatic change. Electronically signed by: Diego Painting On 07/22/2018 06:32:00 AM
[2018-07-22] MEDS ORDERED: ONDANSETRON 4MG/2ML VIAL (J2405) IV PRN (07:45)
[2018-07-22] MEDS ORDERED: MORPHINE 4 MG/ML 1ML VIAL/SYRINGE (J2270) IV PRN (07:45)
[2018-07-22] MEDS: ALBUTEROL SULFATE 2.5 MG/0.5 ML INH NEB SOLN INH PRN ×2 (11:02→16:30)
[2018-07-22] MEDS: PANTOPRAZOLE 40MG INJ (PROTONIX) (C9113) IV SCH (11:53)
[2018-07-22] MEDS: METOPROLOL TART 50 MG TAB PO SCH ×2 (11:55→20:31)
[2018-07-22] MEDS: ASPIRIN 81 MG ENTERIC TAB PO SCH (11:56)
[2018-07-22] MEDS: SYMBICORT 160/4.5MCG INHALER 6GM INH SCH ×2 (12:44→20:55)
--- NOTE | 2018-07-22 14:50 | HPE ---
DATE OF ADMISSION: 07/22/2018 ATTENDING PHYSICIAN: Marv Garcia MD CHIEF COMPLAINT: Abdominal pain. HISTORY OF PRESENT ILLNESS: The patient is a 77-year-old male with a past medical history of two prior small bowel obstructions, status post laparoscopy and lysis of adhesion of small bowel obstruction, with needle perforation repair of the small bowel, presented at [facility] (ER) on 07/22/2018 at 3 a.m. due to abdominal pain and nausea. The patient stated abdominal pain is located in bilateral lower quadrants. The patient denied any fever or chills. Stated that he has been able to pass stool, as well as having flatulence. CT abdomen and pelvis ordered in ER reveals small bowel obstruction with a point of transition/ obstruction in the anterior left abdomen. The patient stated that he had no problem after his prior small bowel repair procedures other than that he fell at home afterwards. REVIEW OF SYSTEMS: Pertinent positives were listed in history of present illness (HPI). All other review of systems were negative. PAST MEDICAL HISTORY: Small lung nodules. Transient ischemic attack (TIA) times three Chronic obstructive pulmonary disease (COPD). Ascending thoracic aorta aneurysm. Hypertension. Dyslipidemia. History of benign prostatic hypertrophy (BPH) and urinary retention. PAST SURGICAL HISTORY: Left knee arthroscopy. Appendectomy. Bilateral cataract resections. SOCIAL HISTORY: The patient was a former smoker. He used to smoke a pack per day at the age of [age] years old to 76 years old. Former alcohol user. ALLERGIES: No known drug allergies. MEDICATIONS: - albuterol sulfate two puffs inhalation every 4 hours as needed - albuterol sulfate 2.5 mg inhalation four times a day as needed - allopurinol 300 mg by mouth daily - amlodipine 7.5 mg by mouth every day - aspirin 81 mg by mouth every day - Symbicort two puffs inhalations twice a day - calcium/vitamin D one tablet by mouth every day - Plavix 75 mg by mouth every day - diphenhydramine HCl 25 mg by mouth nightly as needed - senna S two tablets by mouth before meals - docusate sodium 200 mg by mouth every day - metoprolol tartrate 50 mg by mouth twice a day - montelukast sodium 10 mg by mouth nightly - multivitamin one tablet by mouth every day - mupirocin 2% ointment as needed infection, use on chest, external use three times a day as needed - potassium chloride 20 mEq tablets by mouth before meals - roflumilast 500 mcg by mouth every day - Flomax 0.8 mg by mouth nightly - Spiriva two inhalations every day VITAL SIGNS: Temperature 98.9, pulse 85, respiratory rate 20, blood pressure 147/79, pulse oximetry 98% on 2 liters nasal cannula. EXAMINATION: General: The patient is alert and oriented times three. In mild distress. Nasogastric (NG) tube in place. HEENT: Normocephalic, atraumatic. Conjunctivae and lids normal. No scleral icterus. Mucosa appears to be moist. Nares and external ear canals patent. Neck: Supple. No jugular venous distention (JVD) present. Lungs: Clear to auscultation bilaterally. No rales, wheezing, or rhonchi. Heart: Regular rate and rhythm. No murmurs. S1 and S2 normal. Abdomen: Soft. No distention. Tenderness upon palpation in bilateral lower quadrants. No rebound tenderness. Psychiatric: The patient's mood appears to be appropriate to situation. Memory and cognition function grossly intact. LABORATORIES: WBC 4.8, hemoglobin 12.6, hematocrit 38.2, platelets 274. PT 13.6, INR 1.03, PTT 37.6. Chemistry: Sodium 140, potassium 3.8, chloride 104, carbon dioxide 31, anion gap 5, BUN 25, creatinine 1.48, GFR 49.2, fasting glucose 131, lactic acid 1.7, calcium 8.4, total bilirubin 0.6, direct bilirubin 0.2, AST 12, ALT 16, alkaline phosphatase 108, total protein 7.3, albumin 3.3, lipase 53. CT of the abdomen and pelvis without contrast showed small bowel obstruction with point of transition or obstruction in the anterior left abdomen. Mild bibasilar interstitial prominence and minimal fibro-atelectatic change was also visualized in CT abdomen and pelvis. ASSESSMENT AND PLAN: 1. Partial small bowel obstruction. The patient had two prior small bowel obstructions before, status post one laparoscopy and lysis. NG tube is already in place. The patient last took his Plavix yesterday morning. He will be on IV LR at a rate of 150 mL/h for maintenance fluid and remain nothing by mouth. Hold the patient's Plavix in preparation for possible procedures. Percocet and morphine for pain control. Zofran IV as needed for nausea/vomiting. 2. Hypertension. The patient has a medical history of hypertension. Vital signs remain roughly stable with recent recorded blood pressure (BP) 140s/70s. Continue the patient's home medication, metoprolol tartrate 50 mg by mouth twice a day. Vital signs are scheduled. Continue to monitor the patient. Continue home medication, aspirin 81 mg by mouth every day. Continue home medication, amlodipine 7.5 mg by mouth every day. 3. Chronic obstructive pulmonary disease. The patient has a past medical history of COPD. He will be on Symbicort scheduled and albuterol as needed for respiratory treatment, as well as Singulair. Vital signs are scheduled. 4. Urinary retention. The patient has a medical history of urinary retention. Intake and output (I and O) were ordered. Continue home medication, Flomax. 5. Deep venous thrombosis (DVT) prophylaxis. Lovenox subcutaneously. My faculty preceptor for this patient encounter was physically present during the encounter and was fully available. All aspects of the patient interview, examination, medical decision-making process, and medical care plan development were reviewed and approved by the faculty preceptor. The faculty preceptor is aware and concurs with the plan as stated in the body of this note and will attest to such by his/her cosignature. ABDIRIZAK
[2018-07-22] MEDS: ACETAMINOPHEN TAB 650MG DOSE (2X325MG) PO PRN ×2 (15:55→20:32)
[2018-07-22 16:15] VITALS: BP 109/59
[2018-07-22] MEDS: ENOXAPARIN 40 MG/0.4 ML SYRINGE (J1650) SC SCH (17:54)
[2018-07-22 20:00] VITALS: BP 145/74
[2018-07-22] MEDS: TAMSULOSIN 0.4 MG CAP PO SCH (20:30)
[2018-07-22] MEDS: MONTELUKAST 10 MG TAB PO SCH (20:31)
[2018-07-23] MEDS: PERCOCET 5MG/325MG TAB PO PRN ×2 (01:12→20:31)
[2018-07-23] MEDS: LR 1,000 ML IV SCH ×3 (02:12→20:32)
[2018-07-23 04:00] VITALS: BP 169/79
[2018-07-23] MEDS: ALBUTEROL SULFATE 2.5 MG/0.5 ML INH NEB SOLN INH PRN ×4 (04:32→18:37)
[2018-07-23 06:33] LABS: HEMATOCRIT 32.8 % (42.0-52.0); HEMOGLOBIN 10.8 g/dl (13.5-17.5); MEAN CORPUSCULAR HGB CONC 32.9 g/dl (32.0-36.5); MEAN CORPUSCULAR VOLUME 97.3 fl (80.0-96.0); PLATELET COUNT, AUTOMATED 219 10^3/uL (150-450); RED BLOOD COUNT 3.37 10^6/uL (4.30-6.10)
[2018-07-23 07:01] LABS: ALBUMIN 2.8 GM/DL (3.2-5.2); BILIRUBIN,TOTAL 0.5 MG/DL (0.2-1.0); CALCIUM LEVEL 8.1 MG/DL (8.8-10.2); CREATININE FOR GFR 1.42 MG/DL (0.70-1.30); GLOMERULAR FILTRATION RATE 51.6 (>42); POTASSIUM SERUM 3.9 MEQ/L (3.5-5.1); TOTAL PROTEIN 6.5 GM/DL (6.4-8.2)
[2018-07-23] MEDS: PANTOPRAZOLE 40MG INJ (PROTONIX) (C9113) IV SCH (07:57)
[2018-07-23] MEDS: ASPIRIN 81 MG ENTERIC TAB PO SCH (07:58)
[2018-07-23] MEDS: METOPROLOL TART 50 MG TAB PO SCH ×2 (07:59→20:30)
[2018-07-23] MEDS: ENOXAPARIN 40 MG/0.4 ML SYRINGE (J1650) SC SCH (07:59)
[2018-07-23] MEDS: SYMBICORT 160/4.5MCG INHALER 6GM INH SCH ×2 (08:22→20:10)
[2018-07-23] MEDS ORDERED: CHLORASEPTIC SPRAY MT PRN (08:30)
--- NOTE | 2018-07-23 09:22 | IPNPDOC ---
Subjective Date Seen The patient was seen on 07/23/18. Subjective Chief Complaint/HPI Patient is examined at bedside today. He states that he is feeling ok. Abdominal pain were recorded in care trend activity but he denied abdominal pain. Pt also denied having any bowel movement or having flatulence. No other significant complaints were reported. Gastrointestinal: Reports: Other Symptoms (No bowel movement or flatulenece); Denies: Abdominal Pain, Diarrhea Neurological: Denies: Change in speech, Confusion Objective Physical Examination General Exam: Positive: Alert, Cooperative, No Acute Distress Eye Exam: Positive: Conjunctiva & lids normal ENT Exam: Positive: Atraumatic, Mucous membr. moist/pink, Other ENT (NG tube in place ) Chest Exam: Positive: Normal air movement, Other (No accessory muscle use) Abdomen Exam: Positive: Soft; Negative: Tenderness Extremity Exam: Positive: Normal pulses Skin Exam: Positive: Nl turgor and temperature Neuro Exam: Positive: Normal Speech Psych Exam: Positive: Mental status NL, Memory Intact, Oriented x 3 Assessment /Plan Problems (1) Partial small bowel obstruction Status: Chronic Discussed With: Patient Problem Specific Plan: Monitor Clinically, Repeat Labs Problem Text: History of two prior small bowel obstructions status post one laparoscopy and lysis. Patient vital signs and labs remain roughly stable. Denies abdominal pain this morning with no abdominal distention. No bowel movement/flatulence yet. KUB showed distended small bowel.NG tube output greater than 3L in total. Last Plavix Friday morning. Continue NPO and IV LR for maintaince fluid. Plan for surgery 07/24/18 if no spontaneous resolution. Continue to hold the patient's Plavix in preparation for possible procedures. Percocet and morphine for pain control. Zofran IV as needed for nausea/vomiting . (2) Hypertension Status: Chronic Response to Treatment: Stable, Controlled Problem Specific Plan: Monitor Clinically Problem Text: PMH of HTN. Vital signs remain roughly stable with BP 150s/80s this morning. Continue home medication metoprolol tartrate and Amlodipine. Continue home med Aspirin 81mg QD. Vital signs as scheduled. Continue to monitor the patient. (3) COPD (chronic obstructive pulmonary disease) Status: Chronic Response to Treatment: Stable, Controlled Problem Specific Plan: Monitor Clinically Problem Text: PMH of COPD, appears to be stable with normal air entry. Sat well on 2L oxygen. Continue Symbicort and Singulair as scheduled, albuterol PRN. Vital signs are scheduled. Continue to monitor the patient (4) Urinary retention Status: Chronic Problem Text: Patient has a medical history of urinary retention. 550ml urinary output noted ini the past 24 hours. Continue I&O. Continue home med Flomax. (5) Acute kidney injury Status: Acute Response to Treatment: Stable Problem Specific Plan: Monitor Clinically, Repeat Labs Problem Text: Creatinine of greater than 0.3 increase compared to baseline. Likely d/t pre-renal etiology. Continue IVF for hydration. Patient >500ml urine production/24 hr. Continue to f/u BMP and I&O. (6) Anemia Status: Chronic Problem Text: Chronically low hg around 12. This morning Hg is 10.8, likely d/t volume expansion from IVF. Continue to monitor. Consider Hemeoccult if pt's Hg value continues to worsen Plan/VTE VTE Prophylaxis Ordered?: Yes Plan IVF: Continue Diet: Make NPO Activity: Continue Current Diagnostics: Repeat Labs in AM, Xrays Disposition OR 07/24 VS, I&O, [facility] Vital Signs/I&O Vital Signs Date Time Temp Pulse Resp B/P (MAP) Pulse Ox O2 Delivery O2 Flow Rate FiO2 07/23/18 07:59 80 155/82 07/23/18 04:00 99.8 20 96 2.0 07/22/18 15:45 Nasal Cannula I&O- Last 24 Hours up to 6 AM 07/23/18 06:00 Intake Total 1050 ml Output Total 3750 ml Balance -2700 ml Laboratory Data 24H LABS Laboratory Tests 2 07/22/18 17:39: Lactic Acid Level 1.8 07/23/18 06:15: Nucleated Red Blood Cells % (auto) 0.0, Anion Gap 6L, Glomerular Filtration Rate 51.6, Blood Urea Nitrogen 27H, Creatinine 1.42H, Sodium Level 143, Potassium Level 3.9, Chloride Level 104, Carbon Dioxide Level 33H, Calcium Level 8.1L, Aspartate Amino Transf (AST/SGOT) 19, Alanine Aminotransferase (ALT/SGPT) 13, Alkaline Phosphatase 85, Total Bilirubin 0.5, Total Protein 6.5, Albumin 2.8L, Albumin/Globulin Ratio 0.76L CBC/BMP Laboratory Tests 07/23/18 06:15 Red Blood Count 3.37 L, Mean Corpuscular Volume 97.3 H, Mean Corpuscular Hemoglobin 32.0, Mean Corpuscular Hemoglobin Concent 32.9, Red Cell Distribution Width 15.1 H, Calcium Level 8.1 L, Aspartate Amino Transf (AST/SGOT) 19, Alanine Aminotransferase (ALT/SGPT) 13, Alkaline Phosphatase 85, Total Bilirubin 0.5, Total Protein 6.5, Albumin 2.8 L MANUEL MASTERSON DO Jul 23, 2018 09:22
--- NOTE | 2018-07-23 10:30 | REP ---
ABDOMEN, FLAT AND UPRIGHT; PA CHEST, THREE VIEWS: HISTORY: Small bowel obstruction. COMPARISON: CT 07/22/2018. Air is present in small and large intestine. There are multiple loops of dilated small intestine. Air fluid levels are present. There is no pneumoperitoneum. An NG tube is present. An increase in interstitial markings is present in the lungs consistent with chronic interstitial change. IMPRESSION: Small bowel obstruction unchanged compared to the recent CT examination. Electronically Signed by Farshad Sutton MD 07/23/2018 10:31 A
[2018-07-23 14:00] VITALS: BP 139/65
[2018-07-23] MEDS: ACETAMINOPHEN TAB 650MG DOSE (2X325MG) PO PRN (15:09)
[2018-07-23 20:00] VITALS: BP 159/76
[2018-07-23] MEDS: TAMSULOSIN 0.4 MG CAP PO SCH (20:32)
[2018-07-23] MEDS: MONTELUKAST 10 MG TAB PO SCH (20:32)
[2018-07-24] VITALS (10 sets, daily range): BP systolic 129–175; BP diastolic 66–89; O2SAT 96
[2018-07-24] MEDS: LR 1,000 ML IV SCH (03:15)
[2018-07-24] MEDS: ACETAMINOPHEN TAB 650MG DOSE (2X325MG) PO PRN (03:15)
[2018-07-24] MEDS: ALBUTEROL SULFATE 2.5 MG/0.5 ML INH NEB SOLN INH PRN (05:05)
[2018-07-24 06:51] LABS: HEMATOCRIT 34.2 % (42.0-52.0); HEMOGLOBIN 11.2 g/dl (13.5-17.5); MEAN CORPUSCULAR HEMOGLOBIN 32.3 pg (27.0-33.0); MEAN CORPUSCULAR HGB CONC 32.7 g/dl (32.0-36.5); MEAN CORPUSCULAR VOLUME 98.6 fl (80.0-96.0); PLATELET COUNT, AUTOMATED 228 10^3/uL (150-450); RED BLOOD COUNT 3.47 10^6/uL (4.30-6.10); WHITE BLOOD COUNT 6.6 10^3/uL (4.0-10.0)
[2018-07-24 07:23] LABS: ALBUMIN 2.8 GM/DL (3.2-5.2); ALT/SGPT 14 U/L (12-78); BILIRUBIN,TOTAL 0.6 MG/DL (0.2-1.0); BLOOD UREA NITROGEN 18 MG/DL (7-18); CARBON DIOXIDE LEVEL 28 MEQ/L (21-32); CHLORIDE LEVEL 105 MEQ/L (98-107); CREATININE FOR GFR 1.04 MG/DL (0.70-1.30); GLOMERULAR FILTRATION RATE > 60.0 (>42); GLUCOSE, FASTING 102 MG/DL (70-100); POTASSIUM SERUM 3.1 MEQ/L (3.5-5.1); SODIUM LEVEL 143 MEQ/L (136-145); TOTAL PROTEIN 6.6 GM/DL (6.4-8.2)
[2018-07-24] MEDS: SYMBICORT 160/4.5MCG INHALER 6GM INH SCH ×2 (07:58→21:05)
[2018-07-24] MEDS: ENOXAPARIN 40 MG/0.4 ML SYRINGE (J1650) SC SCH (08:11)
[2018-07-24] MEDS: PANTOPRAZOLE 40MG INJ (PROTONIX) (C9113) IV SCH (08:16)
[2018-07-24] MEDS: ASPIRIN 81 MG ENTERIC TAB PO SCH (08:16)
[2018-07-24] MEDS: METOPROLOL TART 50 MG TAB PO SCH ×2 (08:17→21:16)
--- NOTE | 2018-07-24 08:18 | IPNPDOC ---
Subjective General Date/Time Seen The patient was seen on 07/24/18 at 08:17. Subject Chief Complaint/History The patient is a 77-year-old male admitted with a reason for visit of Small Bowel Obstruction. Patient continues to have high output drainage from his nasogastric tube though his nurse tells me he takes a sufficient amount of water that is not charted which may be affecting this. He continues not to be able to pass flatus nor have any bowel movements. He denies any ongoing abdominal discomfort area intermitt ently is also been having some mild low-grade fever, coughing that seems to be mildly productive. Current Medications Current Medications Current Medications Acetaminophen (Tylenol Tab) 650 mg Q4HP PRN PO MILD PAIN or TEMP > 101 Last administered on 07/24/18 03:15; Start 07/22/18 at 07:45 Albuterol Sulfate (Proventil Neb) 2.5 mg QID PRN INH SHORTNESS OF BREATH Last administered on 07/24/18 05:05; Start 07/22/18 at 07:45 Amlodipine Besylate (Norvasc) 7.5 mg DAILY PO Last administered on 07/23/18 07:59; Start 07/22/18 at 09:00 Aspirin (Ecotrin) 81 mg DAILY PO Last administered on 07/23/18 07:58; Start 07/22/18 at 09:00 Budesonide/ Formoterol Fumarate (Symbicort 160/ 4.5mcg) 2 puff BID INH Last administered on 07/24/18 07:58; Start 07/22/18 at 09:00 Diatrizoate Meglum/ Diatrizoate Sod (Gastrografin) 10 ml Q30M PO Last administered on 07/22/18at 03:00; Start 07/22/18 at 03:05; Stop 07/22/18 at 03:36; Status DC Enoxaparin Sodium (Lovenox) 40 mg DAILY SC Last administered on 07/23/18 07:59; Start 07/22/18 at 09:00 Home Med (Med Rec Complete!) ASDIRECTED XX ; Start 07/22/18 at 03:45; Stop 07/22/18 at 03:47; Status DC Lactated Ringer's 1,000 ml @ 150 mls/hr Q6H40M IV Last administered on 07/24/18 03:15; Start 07/22/18 at 07:43 Metoprolol Tartrate (Lopressor) 50 mg BID PO Last administered on 07/23/18 20:30; Start 07/22/18 at 09:00 Montelukast Sodium (Singulair) 10 mg QHS PO Last administered on 07/23/18 20:32; Start 07/22/18 at 21:00 Morphine Sulfate (Morphine Sulfate Inj) 4 mg Q3HP PRN IV SEVERE PAIN (PS 8-10) Last administered on 07/22/18 15:54; Start 07/22/18 at 07:45 Ondansetron HCl (ZOFRAN INJection) 4 mg Q6HP PRN IV NAUSEA OR VOMITING; Start 07/22/18 at 07:45 Oxycodone/ Acetaminophen (Percocet 5mg/ 325mg Tablet) 1 tab Q4HP PRN PO MODERATE PAIN (PS 5-7); Start 07/22/18 at 07:45 Oxycodone/ Acetaminophen (Percocet 5mg/ 325mg Tablet) 2 tab Q6HP PRN PO SEVERE PAIN (PS 8-10) Last administered on 07/23/18 20:31; Start 07/22/18 at 07:45 Pantoprazole Sodium (Protonix) 40 mg DAILY IV Last administered on 07/23/18 07:57; Start 07/22/18 at 09:00 Phenol (Chloraseptic [place]) 1 spray Q2HP PRN MT SORE THROAT; Start 07/23/18 at 08:30 Tamsulosin HCl (Flomax) 0.8 mg QHS PO Last administered on 07/23/18 20:32; Start 07/22/18 at 21:00 Allergies Coded Allergies: No Known Allergies (Unverified , 11/13/16) Objective Physical Examination Examination GENERAL APPEARANCE: Patient seen sitting up on the bed, comfortable. SKIN: Warm and dry. HEENT: Normocephalic, atraumatic. [place] palpebral conjunctiva, anicteric sclerae. Lips and mucosa appear dry. NG tube in place draining thin bilious material. NECK: Supple, no thyromegaly. No obvious jugular venous distention. LUNGS: Scattered rales, slight tight air movement but no wheezing, no rhonchi. HEART: No chest wall abnormalities. Regular rate and rhythm with no murmurs appreciated. ABDOMEN: Abdomen is round, soft, moderately distended. Nontender on palpation. EXTREMITIES: Extremities have no deformities. No edema identified. Vital Signs Vital Signs Date Time Temp Pulse Resp B/P (MAP) Pulse Ox O2 Delivery O2 Flow Rate FiO2 07/24/18 08:04 99.2 91 19 175/84 (114) 96 22.0 07/22/18 15:45 Nasal Cannula I&Os I&O- Last 24 Hours up to 6 AM 07/24/18 06:00 Intake Total 60 ml Output Total 3675 ml Balance -3615 ml Laboratory Data Labs 24H Laboratory Tests 2 07/24/18 06:22: Nucleated Red Blood Cells % (auto) 0.0, Anion Gap 10, Glomerular Filtration Rate > 60.0, Blood Urea Nitrogen 18, Creatinine 1.04, Sodium Level 143, Potassium Level 3.1#L, Chloride Level 105, Carbon Dioxide Level 28, Calcium Level 8.0L, Aspartate Amino Transf (AST/SGOT) 15, Alanine Aminotransferase (ALT/SGPT) 14, Alkaline Phosphatase 88, Total Bilirubin 0.6, Total Protein 6.6, Albumin 2.8L, Albumin/Globulin Ratio 0.74L CBC/BMP Laboratory Tests 07/24/18 06:22 Red Blood Count 3.47 L, Mean Corpuscular Volume 98.6 H, Mean Corpuscular Hemoglobin 32.3, Mean Corpuscular Hemoglobin Concent 32.7, Red Cell Distribution Width 14.9 H, Calcium Level 8.0 L, Aspartate Amino Transf (AST/SGOT) 15, Alanine Aminotransferase (ALT/SGPT) 14, Alkaline Phosphatase 88, Total Bilirubin 0.6, Total Protein 6.6, Albumin 2.8 L Impression Small bowel obstruction persists hypokalemia Patient continues to show signs of bowel obstruction with high-grade output from the nasogastric tube. He is pale nonoperative therapy for the past 48 hours and have scheduled him for surgery today. A plan to start on diagnostic laparoscopy and see the have enough space to work safely but given the degree of distention we may need to convert to open laparotomy. I discussed with the patient the details of the proposed procedure, the benefits of performing the procedure, the most common risks on doing the procedure. This may include risks of bleeding, injury to nearby structures including bowel injury, need for bowel resection with an added risk for anastomotic failure or leakage, infection and abscess formation as well as surgical site infection and long-term risk of recurrence of bowel obstruction and hernia formation. I have given him a chance to ask questions, voice out concerns. Patient has agreed to proceed K+ is being replaced. Switch IV to K+ containing. Plan / VTE VTE Prophylaxis Ordered?: Yes MARIPOSA RUBALCAVA MD Jul 24, 2018 08:18
[2018-07-24] MEDS ORDERED: AMPICILLIN SOD/SULBACTAM SOD 3 GM in D5W MINI-BAG PLUS 100 ML IV ONE (08:30)
[2018-07-24] MEDS ORDERED: KCL 10MEQ/100ML SWI (KRUN) 10 MEQ in APPROPRIATE DILUENT 1 EA IV ONE (08:30)
[2018-07-24] MEDS: KCL 20MEQ IN D5/0.45NS 1000ML 1,000 ML IV SCH ×2 (08:58→18:20)
[2018-07-24] MEDS ORDERED: LIDOCAINE 1% SDV INJ 30 ML VIAL As Ordered ONE (11:17)
[2018-07-24] MEDS ORDERED: BUPIVACAINE HCL 0.25% 30 ML VIAL As Ordered ONE (11:17)
[2018-07-24] MEDS ORDERED: UNASYN 1.5 GM VIAL As Ordered ONE (12:11)
[2018-07-24] MEDS ORDERED: METOCLOPRAMIDE INJ 10MG/2ML VIAL (J2765) As Ordered ONE (12:22)
[2018-07-24] MEDS ORDERED: LIDOCAINE 2% INJ 100 MG/5 ML SDV (FOR ANES.) As Ordered ONE (12:22)
[2018-07-24] MEDS ORDERED: ePHEDrine SULFATE 25 MG/5 ML(5MG/ML) SYRINGE As Ordered ONE (12:22)
[2018-07-24] MEDS ORDERED: PHENYLephrine HCL 500 MCG/5 ML (100MCG/ML) SYRINGE (J2370) As Ordered ONE (12:22)
[2018-07-24] MEDS ORDERED: fentaNYL 250 MCG/5 ML INJECTION (J3010) As Ordered ONE (12:22)
[2018-07-24] MEDS ORDERED: GLYCOPYRROLATE INJ 0.2 MG/ML 2 ML VIAL As Ordered ONE (12:22)
[2018-07-24] MEDS ORDERED: ONDANSETRON 4MG/2ML VIAL (J2405) As Ordered ONE (12:22)
[2018-07-24] MEDS ORDERED: dexameTHASONE 4 MG/ML 1ML VIAL (J1100) As Ordered ONE (12:22)
[2018-07-24] MEDS ORDERED: ROCURONIUM BROMIDE 50 MG/5 ML VIAL As Ordered ONE ×2 (12:22→12:37)
[2018-07-24] MEDS ORDERED: PROPOFOL 200 MG/20 ML VIAL As Ordered ONE (12:22)
[2018-07-24] MEDS ORDERED: NEOSTIGMINE 10 MG/10 ML VIAL (J2710) As Ordered ONE (12:22)
[2018-07-24] MEDS ORDERED: MIDAZOLAM INJ 2 MG/2 ML VIAL (J2250) As Ordered ONE (12:22)
[2018-07-24] MEDS ORDERED: fentaNYL 100 MCG/2 ML INJECTION (J3010) As Ordered ONE (14:38)
[2018-07-24] MEDS ORDERED: DESFLURANE 240 ML INHALANT As Ordered ONE (15:31)
--- NOTE | 2018-07-24 16:17 | POST-OPPD ---
Postoperative Procedure Note Date Of Procedure: Jul 24, 2018 PREOPERATIVE DIAGNOSIS: small bowel obstruction POSTOPERATIVE DIAGNOSIS: small bowel obstruction FINDINGS: multiple interbowel adhesions and adhesions to the omentum, main obstructing point is to the pelvis but several other fixed loops of bowel found on left side and between bowel and omentum PROCEDURE: Laparoscopic Lysis of adhesion and release of bowel obstruction SURGEON: Radha ZIGZAG APPLIQUER: Lyric ANESTHESIA: General SPECIMENS: None ESTIMATED BLOOD LOSS: 10 mLs REPLACED: DRAINS: COMPLICATIONS: POSTOPERATIVE CONDITION: MARIPOSA RUBALCAVA MD Jul 24, 2018 16:17
[2018-07-24] MEDS ORDERED: LEVALBUTEROL 1.25 MG/0.5 ML CONCENTRATE NEB As Ordered ONE (16:28)
[2018-07-24] MEDS ORDERED: ONDANSETRON 4MG/2ML VIAL (J2405) IV PRN (17:00)
[2018-07-24] MEDS ORDERED: fentaNYL 100 MCG/2 ML INJECTION (J3010) IV PRN (17:00)
[2018-07-24] MEDS ORDERED: LR 1,000 ML IV SCH (17:00)
[2018-07-24] MEDS ORDERED: METOCLOPRAMIDE INJ 10MG/2ML VIAL (J2765) IV PRN (17:00)
[2018-07-24] MEDS ORDERED: PERCOCET 5MG/325MG TAB PO PRN (17:00)
[2018-07-24] MEDS ORDERED: LEVALBUTEROL 1.25 MG/0.5 ML CONCENTRATE NEB NEB ONE (17:15)
[2018-07-24] MEDS: TAMSULOSIN 0.4 MG CAP PO SCH (21:16)
[2018-07-24] MEDS: MONTELUKAST 10 MG TAB PO SCH (21:16)
[2018-07-25] MEDS: PERCOCET 5MG/325MG TAB PO PRN (00:04)
[2018-07-25 02:00] VITALS: BP 134/67
[2018-07-25] MEDS: KCL 20MEQ IN D5/0.45NS 1000ML 1,000 ML IV SCH ×2 (04:39→14:42)
[2018-07-25 06:00] VITALS: BP 142/77
[2018-07-25 06:27] LABS: HEMATOCRIT 31.1 % (42.0-52.0); HEMOGLOBIN 10.1 g/dl (13.5-17.5); MEAN CORPUSCULAR HEMOGLOBIN 31.6 pg (27.0-33.0); MEAN CORPUSCULAR HGB CONC 32.5 g/dl (32.0-36.5); MEAN CORPUSCULAR VOLUME 97.2 fl (80.0-96.0); PLATELET COUNT, AUTOMATED 221 10^3/uL (150-450); WHITE BLOOD COUNT 5.6 10^3/uL (4.0-10.0)
[2018-07-25 06:45] LABS: ALBUMIN 2.5 GM/DL (3.2-5.2); ALT/SGPT 12 U/L (12-78); BILIRUBIN,TOTAL 0.3 MG/DL (0.2-1.0); BLOOD UREA NITROGEN 20 MG/DL (7-18); CALCIUM LEVEL 7.8 MG/DL (8.8-10.2); CARBON DIOXIDE LEVEL 30 MEQ/L (21-32); CHLORIDE LEVEL 105 MEQ/L (98-107); CREATININE FOR GFR 1.15 MG/DL (0.70-1.30); GLOMERULAR FILTRATION RATE > 60.0 (>42); GLUCOSE, FASTING 153 MG/DL (70-100); POTASSIUM SERUM 3.7 MEQ/L (3.5-5.1); SODIUM LEVEL 141 MEQ/L (136-145); TOTAL PROTEIN 6.1 GM/DL (6.4-8.2)
--- NOTE | 2018-07-25 08:21 | ROOPDOC ---
[facility] Report Of Operation Report of Operation DATE OF PROCEDURE: 07/24/18 PREPROCEDURE DIAGNOSES: Small bowel obstruction. POSTPROCEDURE DIAGNOSES: Small bowel obstruction due to multiple adhesions. PROCEDURE: Laparoscopic Lysis of Adhesions, release of small bowel obstruction. SURGEON: Marv Garcia MD ELECTRIC TRUCK DRIVER: MD Dr. Lyric Dickens provided assistance with retraction of the bowel, driving the laparoscope to help with the exposure of involved structures during the procedure. ANESTHESIA: General Anesthesia. ESTIMATED BLOOD LOSS: Approximately 10 mL. COMPLICATIONS: none. REMARKS: distended proximal bowel up to mid ileum. Main obstructing point at the midileum as bowel enters the pelvis and tethered around omentum adhered to the left pelvic side wall and the mesentery of the sigmoid colon. There are other kinks and tight loops of bowel proximally at the left upper quadrant also to the omentum and interbowel adhesions. Bowel was ran from ligament of treitz to the terminal ileum twice (antegrade and retrograde). DESCRIPTION OF PROCEDURE: Patient was brought to the operating room, laid supine on the operating room table. BURTON's and sequential compression stockings placed on both lower extremities were DVT prophylaxis. General endotracheal anesthesia was induced without any complications. Already had a nasogastric tube place prior to entering the operating room. A Velasco catheter was placed for urine output monitoring. His abdomen was widely prepped and draped in the usual sterile fashion.A surgical timeout was performed using safety checklists to confirm correct patient, procedure, positioning, fire risk. We began our surgery by placing a Veress needle on the patient's left upper quadrant area. Proper intra-abdominal positioning was confirmed using a saline drop technique. CO2 insulation then started to pressure off 15 mmHg with notable increased generalized distention of the abdomen.A 5 mm visiport is placed under direct prevention of a 5 mm 0 laparoscope using the same incision. Patients was done placed in a slight right lateral decubitus position.On diagnostic laparoscopy, moderately distended loops of bowels were visualized over the patient's upper abdomen most prominent on the patient's left upper quadrant area. There is a small amount of omentum adhered underneath the previous abdominal incision located vertically periumbilically. This also seems to tether a loop of bowel which appears partially decompressed. A second 5 mm port was placed over the patient's left lower quadrant area under direct vision. A laparoscopic bessy connected to a unipolar Bovee cautery was used to take down the omental adhesions, likewise the small bowel the was adhered to the anterior abdominal wall. After clearing the anterior abdominal wall, another 5 mm port was placed over the patient's super umbilical area. The bowel that was lysed away from the abdominal wall was initially partially decompressed and seems to start to fill up after being released from its adhesion to the abdominal wall. I placed her on a Trendelenburg position, tilted towards the left side and started running the bowel.I started running the bowel from this point antegradely towards the cecum. This loop of bowel seems to dive down towards the patient's left posterior pelvis and again appears to be adhered to the pelvis and likewise to the mesentery of the sigmoid colon.I placed anothe r five minimal report over the patient's right lower quadrant area to help me with the retraction of the bowel. As I pull up on the feathered loop of bowel I also noted a ton of momentum that is wrapped around the small bowel which potentially could be causing an internal hernia. The momentum was divided from its attachments to the bowel wall. Due to the amount of distention the proximal bowel there was not much space to work with in this area initially to free up the tethered group of small bowel to the left pelvis. I then decided to start tracing the bowel from the cecum which is quite floppy and located in the pelvis on the right side and follow the small bowel retrogradely. The terminal ileum was located and this was decompressed. I ran the bowel from this point going backwards while freeing up some small amount of loose inter-bowel adhesions. This progressed easily up until we reached the same area on the left pelvic sidewall. She was repositioned in a steeper Trendelenburg position to aid with having the bowel fall away from the area. This seems to have helped and I proceeded with dissecting the dense adhesion of the small bowel to the left pelvic sidewall, to the mesentery of the sigmoid colon and treated up completely. There's a small amount of bleeding noted probably from the beginning of a diverticulum in the sigmoid colon where I put two chemo clips to aid with hemostasis.After freeing up this tethered loop of bowel I proceeded running the bowel retrogradely which appears to transition to the distended loops of bowel. I then repositioned her to a reverse Trendelenburg position now tilted towards the right side to continue running the bowel were in I now have mostly very distended loops of bowel on the left side of the abdomen and due to the amount of distention is thin-walled. The bowels were carefully traced and this seems to be tethered to the left side of the abdomen. The bowels were adhered to one another and likewise to the mesentery of the transverse and descending colon and the momentum over that area. I placed an additional 5 mm trocar over the patient's left upper quadrant area to help with manipulation and retraction. At this point Dr. Gunter became available and I asked him to help with the procedure. I spent about another two hours working on the adhesions of the distended loops of bowel on the patient's left upper abdomen. There is one particular loop which appears to have an anastomosis most likely were the previous repair was done last year and disappears distended throughout its course. After praying this up I was able to continue running the bowel to the ligament of Treitz.At this point I try to palpate for the presence of the nasogastric tube in the stomach which also appears distended and asked Anesthesia to reposition the tube to the mid body of the stomach .I ran the bowel integrating this time from the ligament of Treitz tracing the bowel antegradely again this portion proves difficult because of the amount of distention and thinness of the bowel wall. I kept coming back to this area of the small bowel loop were I think the anastomosis is located and freed us up further. As I approach the initially decompressed bowel loops in the right lower quadrant in the pelvis this appears to me as more distended now. There were no other tethered loops of bowel remaining. The previous transition area on the left side of the abdomen seems to have equalized in caliber. I was able to run the bowel to the terminal ileum. This appearance of the distal bowel assured me that the obstruction has been released. I again surveyed the abdomen for potential injuries that was not previously realized and likewise examined that portion of the sigmoid colon were put to hemoclips on. I did not see any further bleeding or any signs of bowel injury. Thus the procedure was terminated. The abdomen was deflated. All quartzite incisions were closed with for all monocrystalline's a particular passion and drama doyle dressing was placed on top of the incision. Patient was then promptly awakened, extubated his nasogastric tube was kept. He was brought to the recall room stable. All concept sponges and instruments were verified correct. MARV GARCIA MD Jul 25, 2018 08:21
[2018-07-25] MEDS: SYMBICORT 160/4.5MCG INHALER 6GM INH SCH ×2 (08:25→20:15)
[2018-07-25] MEDS ORDERED: PILL CRUSHER/CUTTER 1 EACH XX PRN (08:45)
[2018-07-25] MEDS: ASPIRIN 81 MG ENTERIC TAB PO SCH (08:59)
[2018-07-25] MEDS: METOPROLOL TART 50 MG TAB PO SCH ×2 (08:59→21:42)
[2018-07-25] MEDS: PANTOPRAZOLE 40MG INJ (PROTONIX) (C9113) IV SCH (09:00)
[2018-07-25] MEDS: SIMETHICONE 80 MG CHEW TAB PO SCH ×4 (09:00→21:42)
[2018-07-25] MEDS: ENOXAPARIN 40 MG/0.4 ML SYRINGE (J1650) SC SCH (09:00)
--- NOTE | 2018-07-25 09:26 | IPN ---
DATE: 07/25/2018 SUBJECTIVE: No flatus or movements postop day #1 from a laparoscopic lysis of adhesions. OBJECTIVE: The patient has been afebrile, but he did have a temperature of 99 this morning. His white count has been within normal limits. He does not complain of any abdominal pain. He has no nausea. Otherwise feeling quite bloated. His respiratory issues are baseline, quite severe chronic obstructive pulmonary disease (COPD), shortness of breath issues with oxygen dependence and is scheduled for a nebulizer. His lungs are diminished at the bases bilaterally with some crackles and wheezes and a few rhonchi. Some upper airway sounds as well. Abdomen is tensely distended, tympanitic. No guarding. No rebound. No peritoneal signs are appreciated. IMPRESSION AND PLAN: 1. Gastrointestinal. The patient is status post laparoscopic lysis of adhesions. Unfortunately, it is hard to know if this is colonic air versus gastric air or whether he has somewhat of an ileus, etc., though he is not complaining of any crampy abdominal pain. I anticipate from its location in the epigastric area but all across the subcostal area as well bilaterally would suggest more of a colonic air distribution. Thus, I have encouraged him to increase his activity. We will start him on some simethicone and we will keep him nothing by mouth for this time. 2. The patient has severe chronic obstructive pulmonary disease (COPD). I have asked him to increase his activity. He is getting a nebulizer now and we will see how he does with increasing current issues.
[2018-07-25 10:00] VITALS: BP 95/85
[2018-07-25] MEDS: ALBUTEROL SULFATE 2.5 MG/0.5 ML INH NEB SOLN INH PRN (11:06)
[2018-07-25] MEDS: ALBUTEROL SULFATE 2.5 MG/0.5 ML INH NEB SOLN NEB SCH ×5 (12:15→23:19)
[2018-07-25 14:00] VITALS: BP 95/81
[2018-07-25] MEDS: MONTELUKAST 10 MG TAB PO SCH (21:42)
[2018-07-25] MEDS: ALVIMOPAN 12 MG CAPSULE (ENTEREG) PO SCH (21:42)
[2018-07-25] MEDS: TAMSULOSIN 0.4 MG CAP PO SCH (21:42)
[2018-07-25 22:00] VITALS: BP 141/71
[2018-07-26] MEDS: KCL 20MEQ IN D5/0.45NS 1000ML 1,000 ML IV SCH ×3 (00:52→20:16)
[2018-07-26] MEDS: ALBUTEROL SULFATE 2.5 MG/0.5 ML INH NEB SOLN NEB SCH ×5 (04:00→20:00)
[2018-07-26] MEDS: ALBUTEROL SULFATE 2.5 MG/0.5 ML INH NEB SOLN INH PRN (05:40)
[2018-07-26 06:00] VITALS: BP 138/75
[2018-07-26 06:34] LABS: HEMATOCRIT 32.5 % (42.0-52.0); HEMOGLOBIN 10.8 g/dl (13.5-17.5); MEAN CORPUSCULAR HEMOGLOBIN 31.8 pg (27.0-33.0); MEAN CORPUSCULAR HGB CONC 33.2 g/dl (32.0-36.5); MEAN CORPUSCULAR VOLUME 95.6 fl (80.0-96.0); PLATELET COUNT, AUTOMATED 253 10^3/uL (150-450)
[2018-07-26 06:53] LABS: ALBUMIN 2.7 GM/DL (3.2-5.2); ALT/SGPT 13 U/L (12-78); BILIRUBIN,TOTAL 0.5 MG/DL (0.2-1.0); BLOOD UREA NITROGEN 16 MG/DL (7-18); CARBON DIOXIDE LEVEL 30 MEQ/L (21-32); CHLORIDE LEVEL 103 MEQ/L (98-107); CREATININE FOR GFR 1.06 MG/DL (0.70-1.30); GLOMERULAR FILTRATION RATE > 60.0 (>42); GLUCOSE, FASTING 123 MG/DL (70-100); POTASSIUM SERUM 3.2 MEQ/L (3.5-5.1); SODIUM LEVEL 139 MEQ/L (136-145); TOTAL PROTEIN 6.4 GM/DL (6.4-8.2)
[2018-07-26] MEDS ORDERED: BISACODYL 10 MG SUPP PR PRN (08:15)
[2018-07-26] MEDS ORDERED: BISACODYL 10 MG SUPP PR ONE (08:15)
[2018-07-26] MEDS: SYMBICORT 160/4.5MCG INHALER 6GM INH SCH ×2 (08:30→20:21)
[2018-07-26] MEDS: ALVIMOPAN 12 MG CAPSULE (ENTEREG) PO SCH ×2 (10:03→21:33)
[2018-07-26] MEDS: SIMETHICONE 80 MG CHEW TAB PO SCH ×4 (10:03→21:34)
[2018-07-26] MEDS: ASPIRIN 81 MG ENTERIC TAB PO SCH (10:04)
[2018-07-26] MEDS: METOPROLOL TART 50 MG TAB PO SCH ×2 (10:04→21:37)
[2018-07-26] MEDS: PANTOPRAZOLE 40MG INJ (PROTONIX) (C9113) IV SCH (10:05)
[2018-07-26] MEDS: ENOXAPARIN 40 MG/0.4 ML SYRINGE (J1650) SC SCH (10:05)
[2018-07-26 14:00] VITALS: BP 158/74
[2018-07-26] MEDS: TAMSULOSIN 0.4 MG CAP PO SCH (21:33)
[2018-07-26] MEDS: MONTELUKAST 10 MG TAB PO SCH (21:33)
[2018-07-26 22:00] VITALS: BP 133/70
[2018-07-27] MEDS: ALBUTEROL SULFATE 2.5 MG/0.5 ML INH NEB SOLN NEB SCH ×7 (03:37→23:36)
[2018-07-27 05:44] LABS: HEMATOCRIT 29.6 % (42.0-52.0); HEMOGLOBIN 9.6 g/dl (13.5-17.5); MEAN CORPUSCULAR HEMOGLOBIN 31.6 pg (27.0-33.0); MEAN CORPUSCULAR HGB CONC 32.4 g/dl (32.0-36.5); MEAN CORPUSCULAR VOLUME 97.4 fl (80.0-96.0); PLATELET COUNT, AUTOMATED 217 10^3/uL (150-450); RED BLOOD COUNT 3.04 10^6/uL (4.30-6.10); WHITE BLOOD COUNT 7.5 10^3/uL (4.0-10.0)
[2018-07-27 06:00] VITALS: BP 144/73
[2018-07-27] MEDS: KCL 20MEQ IN D5/0.45NS 1000ML 1,000 ML IV SCH ×2 (06:31→16:36)
[2018-07-27] MEDS: SYMBICORT 160/4.5MCG INHALER 6GM INH SCH ×2 (08:20→21:21)
[2018-07-27 08:40] LABS: ALBUMIN 2.5 GM/DL (3.2-5.2); ALT/SGPT 16 U/L (12-78); BILIRUBIN,TOTAL 0.4 MG/DL (0.2-1.0); BLOOD UREA NITROGEN 11 MG/DL (7-18); CALCIUM LEVEL 7.8 MG/DL (8.8-10.2); CARBON DIOXIDE LEVEL 28 MEQ/L (21-32); CHLORIDE LEVEL 105 MEQ/L (98-107); CREATININE FOR GFR 0.89 MG/DL (0.70-1.30); GLOMERULAR FILTRATION RATE > 60.0 (>42); GLUCOSE, FASTING 124 MG/DL (70-100); POTASSIUM SERUM 3.4 MEQ/L (3.5-5.1); SODIUM LEVEL 139 MEQ/L (136-145); TOTAL PROTEIN 6.1 GM/DL (6.4-8.2)
--- NOTE | 2018-07-27 09:22 | REP ---
Acute abdominal series including PA chest and supine upright abdomen: Comparison is 07/23/1927. PA chest: The nasogastric tube has been removed. The lung miller are clear but again appear hyperinflated. There is no free subdiaphragmatic air. Cardiac size is normal. The sharmaine, mediastinum, skeletal structures are unremarkable. Impression: Hyperinflation. No free subdiaphragmatic air. Otherwise, negative PA chest. Abdomen, supine upright views: There are multiple air-fluid levels in distended small bowel loops, similar to the prior study. This could represent ileus or small bowel obstruction. No free subdiaphragmatic air is identified. Electronically Signed by Harry Worley MD 07/27/2018 09:14 A
[2018-07-27] MEDS: ASPIRIN 81 MG ENTERIC TAB PO SCH (09:23)
[2018-07-27] MEDS: SIMETHICONE 80 MG CHEW TAB PO SCH ×4 (09:23→20:54)
[2018-07-27] MEDS: PANTOPRAZOLE 40MG INJ (PROTONIX) (C9113) IV SCH (09:23)
[2018-07-27] MEDS: ALVIMOPAN 12 MG CAPSULE (ENTEREG) PO SCH ×2 (09:23→20:54)
[2018-07-27] MEDS: METOPROLOL TART 50 MG TAB PO SCH ×2 (09:24→20:53)
[2018-07-27] MEDS: ACETAMINOPHEN TAB 650MG DOSE (2X325MG) PO PRN (09:24)
[2018-07-27] MEDS: ENOXAPARIN 40 MG/0.4 ML SYRINGE (J1650) SC SCH (09:25)
--- NOTE | 2018-07-27 09:47 | IPNPDOC ---
Subjective General Date/Time Seen The patient was seen on 07/27/18 at 09:45. Subject Chief Complaint/History The patient is a 77-year-old male admitted with a reason for visit of Small Bowel Obstruction. Patient is postoperative day 3 after laparoscopic lysis of adhesions. He reports he is passing flatus and has a small bowel movement yesterday (this was not witnessed) he continues to burp air out through the mouth. He denies any nausea or any abdominal discomfort. He still on some small amount of O2 to keep his s aturations up. He's been coughing but has not had any productive sputum. Current Medications Current Medications Current Medications Acetaminophen (Tylenol Tab) 650 mg Q4HP PRN PO MILD PAIN or TEMP > 101 Last administered on 07/27/18 09:24; Start 07/22/18 at 07:45 Albuterol Sulfate (Proventil Neb) 2.5 mg QID PRN INH SHORTNESS OF BREATH Last administered on 07/26/18 05:40; Start 07/22/18 at 07:45 Albuterol Sulfate (Proventil Neb) 2.5 mg RQ4H NEB Last administered on 07/27/18 03:37; Start 07/25/18 at 12:00 Alvimopan (Entereg) 12 mg BID PO Last administered on 07/27/18 09:23; Start 07/25/18 at 21:00; Stop 08/01/18 at 20:59 Amlodipine Besylate (Norvasc) 7.5 mg DAILY PO Last administered on 07/27/18 09:24; Start 07/22/18 at 09:00 Aspirin (Ecotrin) 81 mg DAILY PO Last administered on 07/27/18 09:23; Start 07/22/18 at 09:00 Bisacodyl (Dulcolax Suppository) 10 mg DAILYPRN PRN CA CONSTIPATION; Start 07/26/18 at 08:15 Budesonide/ Formoterol Fumarate (Symbicort 160/ 4.5mcg) 2 puff BID INH Last administered on 07/27/18 08:20; Start 07/22/18 at 09:00 Diatrizoate Meglum/ Diatrizoate Sod (Gastrografin) 10 ml Q30M PO Last administered on 07/22/18at 03:00; Start 07/22/18 at 03:05; Stop 07/22/18 at 03:36; Status DC Enoxaparin Sodium (Lovenox) 40 mg DAILY SC Last administered on 07/27/18at 09:25; Start 07/22/18 at 09:00 Fentanyl Citrate (Sublimaze) 25 mcg Q5MP PRN IV MODERATE PAIN (PS 4-7); Start 07/24/18 at 17:00; Stop 07/24/18 at 18:00; Status DC Home Med (Med Rec Complete!) ASDIRECTED XX ; Start 07/22/18 at 03:45; Stop 07/22/18 at 03:47; Status DC Lactated Ringer's 1,000 ml @ 100 mls/hr Q10H IV ; Start 07/24/18 at 17:00; Stop 07/24/18 at 18:00; Status DC Lactated Ringer's 1,000 ml @ 150 mls/hr Q6H40M IV Last administered on 07/24/18at 03:15; Start 07/22/18 at 07:43; Stop 07/24/18 at 08:18; Status DC Metoclopramide HCl (REGLAN INJection) 10 mg Q6HP PRN IV NAUSEA OR VOMITING; Start 07/24/18 at 17:00; Stop 07/24/18 at 18:00; Status DC Metoprolol Tartrate (Lopressor) 50 mg BID PO Last administered on 07/27/18at 09:24; Start 07/22/18 at 09:00 Montelukast Sodium (Singulair) 10 mg QHS PO Last administered on 07/26/18at 21:33; Start 07/22/18 at 21:00 Morphine Sulfate (Morphine Sulfate Inj) 4 mg Q3HP PRN IV SEVERE PAIN (PS 8-10) Last administered on 07/22/18at 15:54; Start 07/22/18 at 07:45 Ondansetron HCl (ZOFRAN INJection) 4 mg Q4HP PRN IV NAUSEA OR VOMITING; Start 07/24/18 at 17:00; Stop 07/24/18 at 18:00; Status DC Ondansetron HCl (ZOFRAN INJection) 4 mg Q6HP PRN IV NAUSEA OR VOMITING; Start 07/22/18 at 07:45 Oxycodone/ Acetaminophen (Percocet 5mg/ 325mg Tablet) 1 tab ASDIRECTED PRN PO MILD/MODERATE PAIN (PS 1-7); Start 07/24/18 at 17:00; Stop 07/24/18 at 18:00; Status DC Oxycodone/ Acetaminophen (Percocet 5mg/ 325mg Tablet) 1 tab Q4HP PRN PO MODERATE PAIN (PS 5-7) Last administered on 07/25/18at 00:04; Start 07/22/18 at 07:45 Oxycodone/ Acetaminophen (Percocet 5mg/ 325mg Tablet) 2 tab Q6HP PRN PO SEVERE PAIN (PS 8-10) Last administered on 07/23/18 20:31; Start 07/22/18 at 07:45 Pantoprazole Sodium (Protonix) 40 mg DAILY IV Last administered on 07/27/18at 09:23; Start 07/22/18 at 09:00 Phenol (Chloraseptic Cortez) 1 spray Q2HP PRN MT SORE THROAT; Start 07/23/18 at 08:30 Potassium Chloride/Dextrose/ Sod Cl 1,000 ml @ 100 mls/hr Q10H IV Last administered on 07/27/18 06:31; Start 07/24/18 at 09:00 Simethicone (Mylicon) 120 mg QID PO Last administered on 07/27/18 09:23; Start 07/25/18 at 09:00 Tamsulosin HCl (Flomax) 0.8 mg QHS PO Last administered on 07/26/18at 21:33; Start 07/22/18 at 21:00 Allergies Coded Allergies: No Known Allergies (Unverified , 11/13/16) Objective Physical Examination Examination GENERAL APPEARANCE: Looks comfortable. SKIN: Warm and dry. HEENT: Normocephalic, atraumatic. [place] palpebral conjunctiva, anicteric sclerae. Lips and mucosa appear dry. NECK: Supple, no thyromegaly. No obvious jugular venous distention. LUNGS: Breath sounds are little shallow, tight but no gross wheezing or rhonchi. Patient does not seem to be in distress. His sats are 96% on room air. He has a normal juliana to his speech HEART: No chest wall abnormalities. Regular rate and rhythm with no murmurs appreciated. ABDOMEN: Abdomen is tensely distended, round, soft, quiet abdomen. Port site incisions are dry and intact. EXTREMITIES: Minimal lower extremity edema. Vital Signs Vital Signs Date Time Temp Pulse Resp B/P (MAP) Pulse Ox O2 Delivery O2 Flow Rate FiO2 07/27/18 09:28 97 07/27/18 09:24 81 144/73 07/27/18 06:00 98.8 17 3.0 07/27/18 06:00 Nasal Cannula I&Os I&O- Last 24 Hours up to 6 AM 07/27/18 06:00 Intake Total 1200 ml Output Total 1850 ml Balance -650 ml Laboratory Data Labs 24H Laboratory Tests 2 07/27/18 05:27: Nucleated Red Blood Cells % (auto) 0.0 07/27/18 07:35: Anion Gap 6L, Glomerular Filtration Rate > 60.0, Blood Urea Nitrogen 11, Creatinine 0.89, Sodium Level 139, Potassium Level 3.4L, Chloride Level 105, Carbon Dioxide Level 28, Calcium Level 7.8L, Aspartate Amino Transf (AST/SGOT) 20, Alanine Aminotransferase (ALT/SGPT) 16, Alkaline Phosphatase 73, Total Bilirubin 0.4, Total Protein 6.1L, Albumin 2.5L, Albumin/Globulin Ratio 0.69L CBC/BMP Laboratory Tests 07/27/18 05:27 Red Blood Count 3.04 L, Mean Corpuscular Volume 97.4 H, Mean Corpuscular Hemoglobin 31.6, Mean Corpuscular Hemoglobin Concent 32.4, Red Cell Distribution Width 14.8 H 07/27/18 07:35 Calcium Level 7.8 L, Aspartate Amino Transf (AST/SGOT) 20, Alanine Aminotransferase (ALT/SGPT) 16, Alkaline Phosphatase 73, Total Bilirubin 0.4, Total Protein 6.1 L, Albumin 2.5 L Impression Postop day 3 after laparoscopic lysis of adhesion and release of bowel obstruction. Seems to either have persistent obstruction or an element of ileus. He is still clinically tensely distended with quiet abdomen. He is not having any crampy abdominal pain. He reports passing flatus but does not seem to be enough to decompress his abdomen. COPD - he is in his home medications with nebulizations. He is not short of breath though his air movement sounds tight. He is maintaining adequate saturation. Urinary retention- patient on Flomax at home. He still has his Velasco catheter. I'll keep this today. With his distended abdomen he may not be able to use his abdominal wall cells well to adequately urinate. Continues to have probably element of ileus. Encouraged him to ambulate. I don't think he is ready yet for any significant oral intake. I'll give him a dose of MiraLAX today. Continue with Entereg. Plan / VTE VTE Prophylaxis Ordered?: Yes MARIPOSA RUBALCAVA MD Jul 27, 2018 09:47
[2018-07-27] MEDS ORDERED: MIRALAX *UNIT DOSE* 17GM PACKET PO ONE (10:00)
[2018-07-27 14:00] VITALS: BP 142/73
[2018-07-27] MEDS: MIRALAX *UNIT DOSE* 17GM PACKET PO SCH ×2 (14:10→20:54)
[2018-07-27] MEDS: TAMSULOSIN 0.4 MG CAP PO SCH (20:52)
[2018-07-27] MEDS: MONTELUKAST 10 MG TAB PO SCH (20:52)
[2018-07-27 22:00] VITALS: BP 163/89
[2018-07-28] MEDS: PERCOCET 5MG/325MG TAB PO PRN ×2 (01:13→20:27)
[2018-07-28] MEDS: KCL 20MEQ IN D5/0.45NS 1000ML 1,000 ML IV SCH (02:51)
[2018-07-28] MEDS: ALBUTEROL SULFATE 2.5 MG/0.5 ML INH NEB SOLN NEB SCH ×5 (04:00→20:00)
[2018-07-28 06:00] VITALS: BP 142/83
[2018-07-28 06:29] LABS: HEMATOCRIT 30.9 % (42.0-52.0); HEMOGLOBIN 10.3 g/dl (13.5-17.5); MEAN CORPUSCULAR HEMOGLOBIN 32.3 pg (27.0-33.0); MEAN CORPUSCULAR HGB CONC 33.3 g/dl (32.0-36.5); MEAN CORPUSCULAR VOLUME 96.9 fl (80.0-96.0); PLATELET COUNT, AUTOMATED 250 10^3/uL (150-450); RED BLOOD COUNT 3.19 10^6/uL (4.30-6.10); WHITE BLOOD COUNT 9.2 10^3/uL (4.0-10.0)
[2018-07-28 07:01] LABS: ALBUMIN 2.4 GM/DL (3.2-5.2); ALT/SGPT 15 U/L (12-78); BILIRUBIN,TOTAL 0.4 MG/DL (0.2-1.0); BLOOD UREA NITROGEN 8 MG/DL (7-18); CALCIUM LEVEL 7.5 MG/DL (8.8-10.2); CARBON DIOXIDE LEVEL 29 MEQ/L (21-32); CHLORIDE LEVEL 105 MEQ/L (98-107); CREATININE FOR GFR 0.89 MG/DL (0.70-1.30); GLOMERULAR FILTRATION RATE > 60.0 (>42); GLUCOSE, FASTING 124 MG/DL (70-100); POTASSIUM SERUM 2.9 MEQ/L (3.5-5.1); SODIUM LEVEL 140 MEQ/L (136-145); TOTAL PROTEIN 5.8 GM/DL (6.4-8.2)
[2018-07-28] MEDS ORDERED: FLEET ENEMA PR ONE (08:15)
--- NOTE | 2018-07-28 08:20 | IPNPDOC ---
Subjective General Date/Time Seen The patient was seen on 07/28/18 at 08:16. Subject Chief Complaint/History The patient is a 77-year-old male admitted with a reason for visit of Small Bowel Obstruction. Patient reports reports he is feeling mildly better than he was yesterday. Not having any abdominal cramping. He denies any nausea. He is passing flatus but also burping. He was taking a small amount of water while I was in the room and I asked him how much he thinks he is able to consume throughout the day and he thinks it is about at least more than a cup of water the whole day. He would like to take more but he is following our instructions. Still no bowel movements despite adding MiraLAX. He remains on Entereg. Afebrile. Patient reports he has been ambulating. Current Medications Current Medications Current Medications Acetaminophen (Tylenol Tab) 650 mg Q4HP PRN PO MILD PAIN or TEMP > 101 Last administered on 07/27/18 09:24; Start 07/22/18 at 07:45 Albuterol Sulfate (Proventil Neb) 2.5 mg QID PRN INH SHORTNESS OF BREATH Last administered on 07/26/18 05:40; Start 07/22/18 at 07:45 Albuterol Sulfate (Proventil Neb) 2.5 mg RQ4H NEB Last administered on 07/27/18 23:36; Start 07/25/18 at 12:00 Alvimopan (Entereg) 12 mg BID PO Last administered on 07/27/18 20:54; Start 07/25/18 at 21:00; Stop 08/01/18 at 20:59 Amlodipine Besylate (Norvasc) 7.5 mg DAILY PO Last administered on 07/27/18 09:24; Start 07/22/18 at 09:00 Aspirin (Ecotrin) 81 mg DAILY PO Last administered on 07/27/18 09:23; Start 07/22/18 at 09:00 Bisacodyl (Dulcolax Suppository) 10 mg DAILYPRN PRN [place] CONSTIPATION; Start 07/26/18 at 08:15 Budesonide/ Formoterol Fumarate (Symbicort 160/ 4.5mcg) 2 puff BID INH Last administered on 07/27/18 21:21; Start 07/22/18 at 09:00 Diatrizoate Meglum/ Diatrizoate Sod (Gastrografin) 10 ml Q30M PO Last administered on 07/22/18at 03:00; Start 07/22/18 at 03:05; Stop 07/22/18 at 03:36; Status DC Enoxaparin Sodium (Lovenox) 40 mg DAILY SC Last administered on 07/27/18at 09:25; Start 07/22/18 at 09:00 Fentanyl Citrate (Sublimaze) 25 mcg Q5MP PRN IV MODERATE PAIN (PS 4-7); Start 07/24/18 at 17:00; Stop 07/24/18 at 18:00; Status DC Home Med (Med Rec Complete!) ASDIRECTED XX ; Start 07/22/18 at 03:45; Stop 07/22/18 at 03:47; Status DC Lactated Ringer's 1,000 ml @ 100 mls/hr Q10H IV ; Start 07/24/18 at 17:00; Stop 07/24/18 at 18:00; Status DC Lactated Ringer's 1,000 ml @ 150 mls/hr Q6H40M IV Last administered on 07/24/18at 03:15; Start 07/22/18 at 07:43; Stop 07/24/18 at 08:18; Status DC Metoclopramide HCl (REGLAN INJection) 10 mg Q6HP PRN IV NAUSEA OR VOMITING; Start 07/24/18 at 17:00; Stop 07/24/18 at 18:00; Status DC Metoprolol Tartrate (Lopressor) 50 mg BID PO Last administered on 07/27/18at 20:53; Start 07/22/18 at 09:00 Montelukast Sodium (Singulair) 10 mg QHS PO Last administered on 07/27/18at 20:52; Start 07/22/18 at 21:00 Morphine Sulfate (Morphine Sulfate Inj) 4 mg Q3HP PRN IV SEVERE PAIN (PS 8-10) Last administered on 07/22/18at 15:54; Start 07/22/18 at 07:45 Ondansetron HCl (ZOFRAN INJection) 4 mg Q4HP PRN IV NAUSEA OR VOMITING; Start 07/24/18 at 17:00; Stop 07/24/18 at 18:00; Status DC Ondansetron HCl (ZOFRAN INJection) 4 mg Q6HP PRN IV NAUSEA OR VOMITING; Start 07/22/18 at 07:45 Oxycodone/ Acetaminophen (Percocet 5mg/ 325mg Tablet) 1 tab ASDIRECTED PRN PO MILD/MODERATE PAIN (PS 1-7); Start 07/24/18 at 17:00; Stop 07/24/18 at 18:00; Status DC Oxycodone/ Acetaminophen (Percocet 5mg/ 325mg Tablet) 1 tab Q4HP PRN PO MODERATE PAIN (PS 5-7) Last administered on 07/25/18at 00:04; Start 07/22/18 at 07:45 Oxycodone/ Acetaminophen (Percocet 5mg/ 325mg Tablet) 2 tab Q6HP PRN PO SEVERE PAIN (PS 8-10) Last administered on 07/28/18 01:13; Start 07/22/18 at 07:45 Pantoprazole Sodium (Protonix) 40 mg DAILY IV Last administered on 07/27/18at 09:23; Start 07/22/18 at 09:00 Phenol (Chloraseptic [place]) 1 spray Q2HP PRN [place] SORE THROAT; Start 07/23/18 at 08:30 Polyethylene Glycol (Miralax) 1 pkt BID PO Last administered on 07/27/18at 20:54; Start 07/27/18 at 09:00 Potassium Chloride 10 meq/ IV Miscellaneous Supplies 100 ml @ 100 mls/hr Q1H IV ; Start 07/28/18 at 09:00; Stop 07/28/18 at 10:59 Potassium Chloride/Dextrose/ Sod Cl 1,000 ml @ 100 mls/hr Q10H IV Last administered on 07/28/18at 02:51; Start 07/24/18 at 09:00 Potassium Chloride (Micro-K Extencaps) 40 meq DAILY PO ; Start 07/28/18 at 09:00 Simethicone (Mylicon) 120 mg QID PO Last administered on 07/27/18at 20:54; Start 07/25/18 at 09:00 Tamsulosin HCl (Flomax) 0.8 mg QHS PO Last administered on 07/27/18 20:52; Start 07/22/18 at 21:00 Allergies Coded Allergies: No Known Allergies (Unverified , 11/13/16) Objective Physical Examination Examination GENERAL APPEARANCE: Looks comfortable. SKIN: Warm and dry. HEENT: Normocephalic, atraumatic. [place] palpebral conjunctiva, anicteric sclerae. Lips and mucosa appear mildly dry. NECK: Supple, no thyromegaly. No obvious jugular venous distention. LUNGS: Relatively clear to auscultation still somewhat tight air movement. No wheezing. No rales.. HEART: No chest wall abnormalities. Regular rate and rhythm with no murmurs appreciated. ABDOMEN: Abdomen is round, soft, moderately distended though softer and less distended than yesterday. Port site incisions are clean. Nontender on palpation. EXTREMITIES: No edema. Vital Signs Vital Signs Date Time Temp Pulse Resp B/P (MAP) Pulse Ox O2 Delivery O2 Flow Rate FiO2 07/28/18 06:00 98.8 77 18 142/83 (102) 94 07/28/18 06:00 Room Air 07/27/18 06:00 3.0 I&Os I&O- Last 24 Hours up to 6 AM 07/28/18 06:00 Intake Total 1350 ml Output Total 4025 ml Balance -2675 ml Laboratory Data Labs 24H Laboratory Tests 2 07/28/18 05:33: Nucleated Red Blood Cells % (auto) 0.0, Anion Gap 6L, Glomerular Filtration Rate > 60.0, Blood Urea Nitrogen 8, Creatinine 0.89, Sodium Level 140, Potassium Leve l 2.9*L, Chloride Level 105, Carbon Dioxide Level 29, Calcium Level 7.5L, Aspartate Amino Transf (AST/SGOT) 16, Alanine Aminotransferase (ALT/SGPT) 15, Alkaline Phosphatase 72, Total Bilirubin 0.4, Total Protein 5.8L, Albumin 2.4L, Albumin/Globulin Ratio 0.71L CBC/BMP Laboratory Tests 07/28/18 05:33 Red Blood Count 3.19 L, Mean Corpuscular Volume 96.9 H, Mean Corpuscular Hemo globin 32.3, Mean Corpuscular Hemoglobin Concent 33.3, Red Cell Distribution Width 14.7 H, Calcium Level 7.5 L, Aspartate Amino Transf (AST/SGOT) 16, Alanine Aminotransferase (ALT/SGPT) 15, Alkaline Phosphatase 72, Total Bilirubin 0.4, Total Protein 5.8 L, Albumin 2.4 L Impression POD4 Lysis of adhesion for small bowel obstruction Hypokalemia COPD He still hasn't shown active bowel function though his abdomen looks a little bit less distended today than it was yesterday. I nondistended he has been able to tolerate to drink at least one to 2 cups of water throughout this time. I will allow him some Ensure intake at least to simulate trophic feeding and see if he can stimulate the bowels. I'll give him a dose of fleets enema today. His COPD seems to be stable at this point. He is able to ambulate and maintain adequate saturation though he still seems to be slightly short of breath. I'm replacing his potassium. It is not clear where he is losing this. This may also be contributing to the ileus. I'll change his IV fluids and add additional potassium. I will also check magnesium tomorrow. I have encouraged him to continue ambulating. Plan / VTE VTE Prophylaxis Ordered?: Yes MARIPOSA RUBALCAVA MD Jul 28, 2018 08:20
[2018-07-28] MEDS: SYMBICORT 160/4.5MCG INHALER 6GM INH SCH ×2 (08:30→20:50)
[2018-07-28] MEDS: MIRALAX *UNIT DOSE* 17GM PACKET PO SCH ×2 (08:41→20:25)
[2018-07-28] MEDS: PANTOPRAZOLE 40MG INJ (PROTONIX) (C9113) IV SCH (08:42)
[2018-07-28] MEDS: KCL 10MEQ/100ML SWI (KRUN) 10 MEQ in APPROPRIATE DILUENT 1 EA IV SCH ×2 (08:42→10:40)
[2018-07-28] MEDS: ENOXAPARIN 40 MG/0.4 ML SYRINGE (J1650) SC SCH (08:42)
[2018-07-28] MEDS: ALVIMOPAN 12 MG CAPSULE (ENTEREG) PO SCH ×2 (08:43→20:26)
[2018-07-28] MEDS: SIMETHICONE 80 MG CHEW TAB PO SCH ×4 (08:43→20:26)
[2018-07-28] MEDS: METOPROLOL TART 50 MG TAB PO SCH ×2 (08:44→20:26)
[2018-07-28] MEDS: ASPIRIN 81 MG ENTERIC TAB PO SCH (08:44)
[2018-07-28] MEDS: POTASSIUM CHLORIDE 10 MEQ SR TABLET PO SCH (08:44)
[2018-07-28 10:18] LABS: MAGNESIUM LEVEL 1.7 MG/DL (1.8-2.4)
[2018-07-28 12:47] LABS: BLOOD UREA NITROGEN 9 MG/DL (7-18); CALCIUM LEVEL 7.9 MG/DL (8.8-10.2); CARBON DIOXIDE LEVEL 29 MEQ/L (21-32); CHLORIDE LEVEL 104 MEQ/L (98-107); CREATININE FOR GFR 0.88 MG/DL (0.70-1.30); GLOMERULAR FILTRATION RATE > 60.0 (>42); GLUCOSE, FASTING 92 MG/DL (70-100); POTASSIUM SERUM 3.4 MEQ/L (3.5-5.1); SODIUM LEVEL 138 MEQ/L (136-145)
[2018-07-28] MEDS: KCL 40MEQ IN D5/0.45NS 1000ML 1,000 ML IV SCH (12:53)
[2018-07-28] MEDS ORDERED: MAG SULF 1GM/100ML (MAG RUN) 1 GM in APPROPRIATE DILUENT 1 EA IV ONE (13:15)
[2018-07-28 14:00] VITALS: BP 152/85
[2018-07-28] MEDS: ACETAMINOPHEN TAB 650MG DOSE (2X325MG) PO PRN (17:11)
[2018-07-28] MEDS: MONTELUKAST 10 MG TAB PO SCH (20:25)
[2018-07-28] MEDS: TAMSULOSIN 0.4 MG CAP PO SCH (20:26)
[2018-07-28 22:00] VITALS: BP 112/78
[2018-07-29] MEDS: ALBUTEROL SULFATE 2.5 MG/0.5 ML INH NEB SOLN NEB SCH ×7 (00:29→23:43)
[2018-07-29] MEDS: KCL 40MEQ IN D5/0.45NS 1000ML 1,000 ML IV SCH (03:01)
[2018-07-29 07:06] LABS: MEAN CORPUSCULAR HEMOGLOBIN 31.9 pg (27.0-33.0); MEAN CORPUSCULAR HGB CONC 33.3 g/dl (32.0-36.5); MEAN CORPUSCULAR VOLUME 95.7 fl (80.0-96.0); PLATELET COUNT, AUTOMATED 328 10^3/uL (150-450); RED BLOOD COUNT 3.45 10^6/uL (4.30-6.10); WHITE BLOOD COUNT 11.1 10^3/uL (4.0-10.0)
[2018-07-29 07:32] LABS: ALBUMIN 2.5 GM/DL (3.2-5.2); ALT/SGPT 19 U/L (12-78); BILIRUBIN,TOTAL 0.5 MG/DL (0.2-1.0); BLOOD UREA NITROGEN 9 MG/DL (7-18); CALCIUM LEVEL 7.9 MG/DL (8.8-10.2); CARBON DIOXIDE LEVEL 27 MEQ/L (21-32); CHLORIDE LEVEL 104 MEQ/L (98-107); CREATININE FOR GFR 0.96 MG/DL (0.70-1.30); GLOMERULAR FILTRATION RATE > 60.0 (>42); GLUCOSE, FASTING 108 MG/DL (70-100); POTASSIUM SERUM 3.4 MEQ/L (3.5-5.1); SODIUM LEVEL 138 MEQ/L (136-145); TOTAL PROTEIN 6.2 GM/DL (6.4-8.2)
[2018-07-29] MEDS: PERCOCET 5MG/325MG TAB PO PRN (07:47)
[2018-07-29 08:03] LABS: MAGNESIUM LEVEL 1.9 MG/DL (1.8-2.4)
[2018-07-29] MEDS: SIMETHICONE 80 MG CHEW TAB PO SCH ×4 (08:14→21:01)
[2018-07-29] MEDS: PANTOPRAZOLE 40MG INJ (PROTONIX) (C9113) IV SCH (08:14)
[2018-07-29] MEDS: ENOXAPARIN 40 MG/0.4 ML SYRINGE (J1650) SC SCH (08:14)
[2018-07-29] MEDS: MIRALAX *UNIT DOSE* 17GM PACKET PO SCH ×2 (08:14→21:01)
[2018-07-29] MEDS: ASPIRIN 81 MG ENTERIC TAB PO SCH (08:15)
[2018-07-29] MEDS: ALVIMOPAN 12 MG CAPSULE (ENTEREG) PO SCH ×2 (08:15→21:01)
[2018-07-29] MEDS: POTASSIUM CHLORIDE 10 MEQ SR TABLET PO SCH (08:15)
[2018-07-29] MEDS: METOPROLOL TART 50 MG TAB PO SCH ×2 (08:15→21:03)
[2018-07-29] MEDS: SYMBICORT 160/4.5MCG INHALER 6GM INH SCH ×2 (08:41→20:50)
--- NOTE | 2018-07-29 13:22 | IPNPDOC ---
Subjective General Date/Time Seen The patient was seen on 07/29/18 at 13:19. Subject Chief Complaint/History The patient is a 77-year-old male admitted with a reason for visit of Small Bowel Obstruction. Patient had a large bowel movement early this morning. He reports continued passing flatus and his abdomen is less distended than it was yesterday. He denies any nausea or vomiting. Current Medications Current Medications Current Medications Acetaminophen (Tylenol Tab) 650 mg Q4HP PRN PO MILD PAIN or TEMP > 101 Last administered on 07/28/18 17:11; Start 07/22/18 at 07:45 Albuterol Sulfate (Proventil Neb) 2.5 mg QID PRN INH SHORTNESS OF BREATH Last administered on 07/26/18 05:40; Start 07/22/18 at 07:45 Albuterol Sulfate (Proventil Neb) 2.5 mg RQ4H NEB Last administered on 07/29/18 11:24; Start 07/25/18 at 12:00 Alvimopan (Entereg) 12 mg BID PO Last administered on 07/29/18 08:15; Start 07/25/18 at 21:00; Stop 08/01/18 at 20:59 Amlodipine Besylate (Norvasc) 7.5 mg DAILY PO Last administered on 07/29/18 08:16; Start 07/22/18 at 09:00 Aspirin (Ecotrin) 81 mg DAILY PO Last administered on 07/29/18 08:15; Start 07/22/18 at 09:00 Bisacodyl (Dulcolax Suppository) 10 mg DAILYPRN PRN [place] CONSTIPATION; Start 07/26/18 at 08:15 Budesonide/ Formoterol Fumarate (Symbicort 160/ 4.5mcg) 2 puff BID INH Last administered on 07/29/18 08:41; Start 07/22/18 at 09:00 Diatrizoate Meglum/ Diatrizoate Sod (Gastrografin) 10 ml Q30M PO Last administered on 07/22/18 03:00; Start 07/22/18 at 03:05; Stop 07/22/18 at 03:36; Status DC Enoxaparin Sodium (Lovenox) 40 mg DAILY SC Last administered on 2/13/19at 08:14; Start 07/22/18 at 09:00 Fentanyl Citrate (Sublimaze) 25 mcg Q5MP PRN IV MODERATE PAIN (PS 4-7); Start 07/24/18 at 17:00; Stop 07/24/18 at 18:00; Status DC Home Med (Med Rec Complete!) ASDIRECTED XX ; Start 07/22/18 at 03:45; Stop 07/22/18 at 03:47; Status DC Lactated Ringer's 1,000 ml @ 100 mls/hr Q10H IV ; Start 07/24/18 at 17:00; Stop 07/24/18 at 18:00; Status DC Lactated Ringer's 1,000 ml @ 150 mls/hr Q6H40M IV Last administered on 07/24/18 at 03:15; Start 07/22/18 at 07:43; Stop 07/24/18 at 08:18; Status DC Metoclopramide HCl (REGLAN INJection) 10 mg Q6HP PRN IV NAUSEA OR VOMITING; Start 07/24/18 at 17:00; Stop 07/24/18 at 18:00; Status DC Metoprolol Tartrate (Lopressor) 50 mg BID PO Last administered on 07/29/18at 08:15; Start 07/22/18 at 09:00 Montelukast Sodium (Singulair) 10 mg QHS PO Last administered on 07/28/18at 20:25; Start 07/22/18 at 21:00 Morphine Sulfate (Morphine Sulfate Inj) 4 mg Q3HP PRN IV SEVERE PAIN (PS 8-10) Last administered on 07/22/18at 15:54; Start 07/22/18 at 07:45 Ondansetron HCl (ZOFRAN INJection) 4 mg Q4HP PRN IV NAUSEA OR VOMITING; Start 07/24/18 at 17:00; Stop 07/24/18 at 18:00; Status DC Ondansetron HCl (ZOFRAN INJection) 4 mg Q6HP PRN IV NAUSEA OR VOMITING; Start 07/22/18 at 07:45 Oxycodone/ Acetaminophen (Percocet 5mg/ 325mg Tablet) 1 tab ASDIRECTED PRN PO MILD/MODERATE PAIN (PS 1-7); Start 07/24/18 at 17:00; Stop 07/24/18 at 18:00; Status DC Oxycodone/ Acetaminophen (Percocet 5mg/ 325mg Tablet) 1 tab Q4HP PRN PO MODERATE PAIN (PS 5-7) Last administered on 07/25/18at 00:04; Start 07/22/18 at 0 7:45 Oxycodone/ Acetaminophen (Percocet 5mg/ 325mg Tablet) 2 tab Q6HP PRN PO SEVERE PAIN (PS 8-10) Last administered on 07/29/18 07:47; Start 07/22/18 at 07:45 Pantoprazole Sodium (Protonix) 40 mg DAILY IV Last administered on 07/29/18 08:14; Start 07/22/18 at 09:00 Phenol (Chloraseptic [place]) 1 spray Q2HP PRN [place] SORE THROAT; Start 07/23/18 at 08:30 Polyethylene Glycol (Miralax) 1 pkt BID PO Last administered on 07/29/18 08:14; Start 07/27/18 at 09:00 Potassium Chloride 10 meq/ IV Miscellaneous Supplies 100 ml @ 100 mls/hr Q1H IV Last administered on 07/28/18 10:40; Start 07/28/18 at 09:00; Stop 07/28/18 at 10:59; Status DC Potassium Chloride/Dextrose/ Sod Cl 1,000 ml @ 75 mls/hr [id number] IV Last administered on 07/29/18 03:01; Start 07/28/18 at 08:15; Stop 07/29/18 at 08:04; Status DC Potassium Chloride/Dextrose/ Sod Cl 1,000 ml @ 100 mls/hr Q10H IV Last administered on 07/28/18 02:51; Start 07/24/18 at 09:00; Stop 07/28/18 at 08:16; Status DC Potassium Chloride (Micro-K Extencaps) 40 meq DAILY PO Last administered on 07/29/18 08:15; Start 07/28/18 at 09:00 Simethicone (Mylicon) 120 mg QID PO Last administered on 07/29/18 12:29; Start 07/25/18 at 09:00 Tamsulosin HCl (Flomax) 0.8 mg QHS PO Last administered on 07/28/18 20:26; Start 07/22/18 at 21:00 Allergies Coded Allergies: No Known Allergies (Unverified , 11/13/16) Objective Physical Examination Examination GENERAL APPEARANCE: Comfortable. SKIN: Warm and dry. HEENT: Normocephalic, atraumatic. [place] palpebral conjunctiva, anicteric sclerae. Lips and mucosa appear moist. NECK: Supple, no thyromegaly. No obvious jugular venous distention. LUNGS: Clear to auscultation bilaterally HEART: No chest wall abnormalities. Regular rate and rhythm with no murmurs appreciated. ABDOMEN: Abdomen is round, soft, still somewhat distended but markedly less so than it was yesterday. Nontender on palpation. . EXTREMITIES: Extremities have no deformities. No edema identified. Vital Signs Vital Signs Date Time Temp Pulse Resp B/P (MAP) Pulse Ox O2 Delivery O2 Flow Rate FiO2 07/29/18 08:17 20 07/29/18 08:16 78 147/83 07/29/18 06:00 98.8 94 07/28/18 22:25 Room Air 07/27/18 06:00 3.0 I&Os I&O- Last 24 Hours up to 6 AM 07/29/18 06:00 Intake Total 1005 ml Output Total 3650 ml Balance -2645 ml Laboratory Data Labs 24H Laboratory Tests 2 07/29/18 06:32: Nucleated Red Blood Cells % (auto) 0.0, Anion Gap 7L, Glomerular Filtration Rate > 60.0, Blood Urea Nitrogen 9, Creatinine 0.96, Sodium Level 138, Potassium Level 3.4L, Chloride Level 104, Carbon Dioxide Level 27, Calcium Level 7.9L, Aspartate Amino Transf (AST/SGOT) 19, Alanine Aminotransferase (ALT/SGPT) 19, Alkaline Phosphatase 79, Total Bilirubin 0.5, Total Protein 6.2L, Albumin 2.5L, Magnesium Level 1.9, Albumin/Globulin Ratio 0.68L CBC/BMP Laboratory Tests 07/29/18 06:32 Red Blood Count 3.45 L, Mean Corpuscular Volume 95.7, Mean Corpuscular Hemoglobin 31.9, Mean Corpuscular Hemoglobin Concent 33.3, Red Cell Distribution Width 14.8 H, Calcium Level 7.9 L, Aspartate Amino Transf (AST/SGOT) 19, Alanine Aminotransferase (ALT/SGPT) 19, Alkaline Phosphatase 79, Total Bilirubin 0.5, Total Protein 6.2 L, Albumin 2.5 L Impression Postop day 5 after laparoscopic lysis of adhesions for small bowel obstruction COPD Urinary retention I'll advance his diet starting with full liquids and hopefully some solid foods by tomorrow morning. Continue with MiraLAX twice a day. His Velas[place] catheter is discontinued. Intermittent straight cath if needed. Plan / VTE VTE Prophylaxis Ordered?: Yes Plan / Urinary Catheter Urinary Catheter: D/C MARIPOSA Odonnell MD Jul 29, 2018 13:21
[2018-07-29 14:00] VITALS: BP 143/79
[2018-07-29] MEDS: TAMSULOSIN 0.4 MG CAP PO SCH (21:01)
[2018-07-29] MEDS: MONTELUKAST 10 MG TAB PO SCH (21:01)
[2018-07-29 22:00] VITALS: BP 143/80
[2018-07-30] MEDS: PERCOCET 5MG/325MG TAB PO PRN ×3 (00:15→22:34)
[2018-07-30 06:00] VITALS: BP 145/77
[2018-07-30 06:21] LABS: HEMATOCRIT 33.5 % (42.0-52.0); HEMOGLOBIN 11.1 g/dl (13.5-17.5); MEAN CORPUSCULAR HEMOGLOBIN 31.4 pg (27.0-33.0); MEAN CORPUSCULAR HGB CONC 33.1 g/dl (32.0-36.5); MEAN CORPUSCULAR VOLUME 94.9 fl (80.0-96.0); PLATELET COUNT, AUTOMATED 377 10^3/uL (150-450); RED BLOOD COUNT 3.53 10^6/uL (4.30-6.10); WHITE BLOOD COUNT 9.6 10^3/uL (4.0-10.0)
[2018-07-30 06:47] LABS: ALBUMIN 2.5 GM/DL (3.2-5.2); ALT/SGPT 21 U/L (12-78); BILIRUBIN,TOTAL 0.4 MG/DL (0.2-1.0); BLOOD UREA NITROGEN 11 MG/DL (7-18); CALCIUM LEVEL 7.8 MG/DL (8.8-10.2); CARBON DIOXIDE LEVEL 26 MEQ/L (21-32); CHLORIDE LEVEL 104 MEQ/L (98-107); CREATININE FOR GFR 0.98 MG/DL (0.70-1.30); GLOMERULAR FILTRATION RATE > 60.0 (>42); GLUCOSE, FASTING 108 MG/DL (70-100); POTASSIUM SERUM 3.5 MEQ/L (3.5-5.1); SODIUM LEVEL 137 MEQ/L (136-145); TOTAL PROTEIN 6.5 GM/DL (6.4-8.2)
[2018-07-30] MEDS: ALBUTEROL SULFATE 2.5 MG/0.5 ML INH NEB SOLN NEB SCH ×5 (08:00→23:30)
[2018-07-30] MEDS: POTASSIUM CHLORIDE 10 MEQ SR TABLET PO SCH (08:15)
[2018-07-30] MEDS: SIMETHICONE 80 MG CHEW TAB PO SCH ×4 (08:15→21:02)
[2018-07-30] MEDS: METOPROLOL TART 50 MG TAB PO SCH ×2 (08:16→21:06)
[2018-07-30] MEDS: ALVIMOPAN 12 MG CAPSULE (ENTEREG) PO SCH ×2 (08:16→21:06)
[2018-07-30] MEDS: ENOXAPARIN 40 MG/0.4 ML SYRINGE (J1650) SC SCH (08:17)
[2018-07-30] MEDS: ASPIRIN 81 MG ENTERIC TAB PO SCH (08:17)
[2018-07-30] MEDS: PANTOPRAZOLE 40MG INJ (PROTONIX) (C9113) IV SCH (08:17)
[2018-07-30] MEDS: SYMBICORT 160/4.5MCG INHALER 6GM INH SCH ×2 (08:22→18:34)
[2018-07-30] MEDS: MIRALAX *UNIT DOSE* 17GM PACKET PO SCH (08:26)
[2018-07-30 14:00] VITALS: BP 155/80
--- NOTE | 2018-07-30 15:20 | IPNPDOC ---
Subjective General Date/Time Seen The patient was seen on 07/30/18 at 15:19. Subject Chief Complaint/History The patient is a 77-year-old male admitted with a reason for visit of Small Bowel Obstruction. Patient was examined at bedside. He reported 4 bowel movement last night without melena or hematochezia. Denies any nausea/vomiting/fever/chills. He reported that he still has intermittent abdominal pain in bilateral lower quadrants, but feel that his abdomen distention has improved compared to yesterday. Reported that he is tolerating full liquid diet well. He reports that he has been burping. Patient reports that he has been walking around without any problem. Denies any other complaints besides intermittent abdominal pain and abdominal distention. Patient feels like he could tolerate advanced diet Current Medications Current Medications Current Medications Acetaminophen (Tylenol Tab) 650 mg Q4HP PRN PO MILD PAIN or TEMP > 101 Last administered on 07/28/18at 17:11; Start 07/22/18 at 07:45 Albuterol Sulfate (Proventil Neb) 2.5 mg QID PRN INH SHORTNESS OF BREATH Last administered on 07/26/18at 05:40; Start 07/22/18 at 07:45 Albuterol Sulfate (Proventil Neb) 2.5 mg RQ4H NEB Last administered on 07/30/18at 11:24; Start 07/25/18 at 12:00 Alvimopan (Entereg) 12 mg BID PO Last administered on 07/30/18at 08:16; Start 07/25/18 at 21:00; Stop 08/01/18 at 20:59 Amlodipine Besylate (Norvasc) 7.5 mg DAILY PO Last administered on 07/30/18at 08:17; Start 07/22/18 at 09:00 Aspirin (Ecotrin) 81 mg DAILY PO Last administered on 07/30/18at 08:17; Start 07/22/18 at 09:00 Bisacodyl (Dulcolax Suppository) 10 mg DAILYPRN PRN [place] CONSTIPATION; Start 07/26/18 at 08:15 Budesonide/ Formoterol Fumarate (Symbicort 160/ 4.5mcg) 2 puff BID INH Last administered on 07/30/18at 08:22; Start 07/22/18 at 09:00 Diatrizoate Meglum/ Diatrizoate Sod (Gastrografin) 10 ml Q30M PO Last administered on 07/22/18at 03:00; Start 07/22/18 at 03:05; Stop 07/22/18 at 03:36; Status DC Enoxaparin Sodium (Lovenox) 40 mg DAILY SC Last administered on 07/30/18at 08:17; Start 07/22/18 at 09:00 Fentanyl Citrate (Sublimaze) 25 mcg Q5MP PRN IV MODERATE PAIN (PS 4-7); Start 07/24/18 at 17:00; Stop 07/24/18 at 18:00; Status DC Home Med (Med Rec Complete!) ASDIRECTED XX ; Start 07/22/18 at 03:45; Stop 07/22/18 at 03:47; Status DC Lactated Ringer's 1,000 ml @ 100 mls/hr Q10H IV ; Start 07/24/18 at 17:00; Stop 07/24/18 at 18:00; Status DC Lactated Ringer's 1,000 ml @ 150 mls/hr Q6H40M IV Last administered on 07/24/18at 03:15; Start 07/22/18 at 07:43; Stop 07/24/18 at 08:18; Status DC Metoclopramide HCl (REGLAN INJection) 10 mg Q6HP PRN IV NAUSEA OR VOMITING; Start 07/24/18 at 17:00; Stop 07/24/18 at 18:00; Status DC Metoprolol Tartrate (Lopressor) 50 mg BID PO Last administered on 07/30/18at 08:16; Start 07/22/18 at 09:00 Montelukast Sodium (Singulair) 10 mg QHS PO Last administered on 07/29/18at 21:01; Start 07/22/18 at 21:00 Morphine Sulfate (Morphine Sulfate Inj) 4 mg Q3HP PRN IV SEVERE PAIN (PS 8-10) Last administered on 07/22/18at 15:54; Start 07/22/18 at 07:45 Ondansetron HCl (ZOFRAN INJection) 4 mg Q4HP PRN IV NAUSEA OR VOMITING; Start 07/24/18 at 17:00; Stop 07/24/18 at 18:00; Status DC Ondansetron HCl (ZOFRAN INJection) 4 mg Q6HP PRN IV NAUSEA OR VOMITING; Start 07/22/18 at 07:45 Oxycodone/ Acetaminophen (Percocet 5mg/ 325mg Tablet) 1 tab ASDIRECTED PRN PO MILD/MODERATE PAIN (PS 1-7); Start 07/24/18 at 17:00; Stop 07/24/18 at 18:00; Status DC Oxycodone/ Acetaminophen (Percocet 5mg/ 325mg Tablet) 1 tab Q4HP PRN PO MODERATE PAIN (PS 5-7) Last administered on 07/30/18at 06:07; Start 07/22/18 at 07:45 Oxycodone/ Acetaminophen (Percocet 5mg/ 325mg Tablet) 2 tab Q6HP PRN PO SEVERE PAIN (PS 8-10) Last administered on 07/29/18at 07:47; Start 07/22/18 at 07:45 Pantoprazole Sodium (Protonix) 40 mg DAILY IV Last administered on 07/30/18at 08:17; Start 07/22/18 at 09:00 Phenol (Chloraseptic [place]) 1 spray Q2HP PRN [place] SORE THROAT; Start 07/23/18 at 08:30 Polyethylene Glycol (Miralax) 1 pkt BID PO Last administered on 07/30/18 08:26; Start 07/27/18 at 09:00 Potassium Chloride 10 meq/ IV Miscellaneous Supplies 100 ml @ 100 mls/hr Q1H IV Last administered on 07/28/18at 10:40; Start 07/28/18 at 09:00; Stop 07/28/18 at 10:59; Status DC Potassium Chloride/Dextrose/ Sod Cl 1,000 ml @ 75 mls/hr [id number] IV Last administered on 07/29/18at 03:01; Start 07/28/18 at 08:15; Stop 07/29/18 at 08:04; Status DC Potassium Chloride/Dextrose/ Sod Cl 1,000 ml @ 100 mls/hr Q10H IV Last administered on 07/28/18at 02:51; Start 07/24/18 at 09:00; Stop 07/28/18 at 08:16; Status DC Potassium Chloride (Micro-K Extencaps) 40 meq DAILY PO Last administered on 07/30/18at 08:15; Start 07/28/18 at 09:00 Simethicone (Mylicon) 120 mg QID PO Last administered on 07/30/18at 12:54; Start 07/25/18 at 09:00 Tamsulosin HCl (Flomax) 0.8 mg QHS PO Last administered on 07/29/18at 21:01; Start 07/22/18 at 21:00 Allergies Coded Allergies: No Known Allergies (Unverified , 11/13/16) Objective Physical Examination Examination GENERAL APPEARANCE:[Patient seen, laying in bed, awake, alert, and oriented. Comfortable, in no acute distress]. SKIN: [Warm and moist]. HEENT: [Normocephalic, atraumatic. [place] palpebral conjunctiva, anicteric sclerae. Lips and mucosa appear moist]. NECK: [Supple, no thyromegaly. No obvious jugular venous distention]. LUNGS: [Clear to auscultation bilaterally.]. HEART: [No chest wall abnormalities. Regular rate and rhythm with no murmurs appreciated]. ABDOMEN: Abdomen is mildly distended, soft, non-tender to palpitation in all 4 quadrants. laproscopic incisions noted without signs of infections. No rebound tenderness or guarding. EXTREMITIES: Radial pulse equal bilaterally No edema identified Vital Signs Vital Signs Date Time Temp Pulse Resp B/P (MAP) Pulse Ox O2 Delivery O2 Flow Rate FiO2 07/30/18 14:00 99.4 71 20 155/80 (105) 97 07/29/18 15:44 Room Air 07/27/18 06:00 3.0 I&Os I&O- Last 24 Hours up to 6 AM 07/30/18 06:00 Intake Total 1340 ml Output Total 1815 ml Balance -475 ml Laboratory Data Labs 24H Laboratory Tests 2 07/30/18 06:02: Nucleated Red Blood Cells % (auto) 0.0, Anion Gap 7L, Glomerular Filtration Rate > 60.0, Blood Urea Nitrogen 11, Creatinine 0.98, Sodium Level 137, Potassium Level 3.5, Chloride Level 104, Carbon Dioxide Level 26, Calcium Level 7.8L, Aspartate Amino Transf (AST/SGOT) 18, Alanine Aminotransferase (ALT/SGPT) 21, Alkaline Phosphatase 89, Total Bilirubin 0.4, Total Protein 6.5, Albumin 2.5L, Albumin/Globulin Ratio 0.63L CBC/BMP Laboratory Tests 2/14/19 06:02 Red Blood Count 3.53 L, Mean Corpuscular Volume 94.9, Mean Corpuscular Hemoglobin 31.4, Mean Corpuscular Hemoglobin Concent 33.1, Red Cell Distribution Width 15.0 H, Calcium Level 7.8 L, Aspartate Amino Transf (AST/SGOT) 18, Alanine Aminotransferase (ALT/SGPT) 21, Alkaline Phosphatase 89, Total Bilirubin 0.4, Total Protein 6.5, Albumin 2.5 L Impression Postop day 6 after laparoscopic lysis of adhesions for small bowel obstruction. Tolerating clear liquid diet well. Advance to regular diet today. Continue Ensure supplement. Continue Pain meds and Zofran. HTN. Cont home med Metoprolol and Amlodipine. Cont Vital signs as scheduled. COPD. Continue current respiratory treatment and vital signs as scheduled. Urinary retention. Continue Flomax. Straight cath as needed. Plan / VTE VTE Prophylaxis Ordered?: Yes Plan / Urinary Catheter Urinary Catheter: D/C MANUEL Ontiveros DO Jul 30, 2018 15:20
[2018-07-30] MEDS: MONTELUKAST 10 MG TAB PO SCH (21:03)
[2018-07-30] MEDS: TAMSULOSIN 0.4 MG CAP PO SCH (21:03)
[2018-07-30 22:00] VITALS: BP 133/74
[2018-07-31] MEDS: ALBUTEROL SULFATE 2.5 MG/0.5 ML INH NEB SOLN NEB SCH ×3 (03:02→11:17)
[2018-07-31 05:52] LABS: HEMATOCRIT 33.9 % (42.0-52.0); HEMOGLOBIN 11.2 g/dl (13.5-17.5); MEAN CORPUSCULAR HEMOGLOBIN 31.3 pg (27.0-33.0); MEAN CORPUSCULAR VOLUME 94.7 fl (80.0-96.0); PLATELET COUNT, AUTOMATED 401 10^3/uL (150-450); RED BLOOD COUNT 3.58 10^6/uL (4.30-6.10); WHITE BLOOD COUNT 9.3 10^3/uL (4.0-10.0)
[2018-07-31 06:00] VITALS: BP 143/75
[2018-07-31 06:16] LABS: ALBUMIN 2.6 GM/DL (3.2-5.2); ALT/SGPT 20 U/L (12-78); BILIRUBIN,TOTAL 0.3 MG/DL (0.2-1.0); BLOOD UREA NITROGEN 15 MG/DL (7-18); CALCIUM LEVEL 7.9 MG/DL (8.8-10.2); CARBON DIOXIDE LEVEL 26 MEQ/L (21-32); CHLORIDE LEVEL 104 MEQ/L (98-107); GLOMERULAR FILTRATION RATE > 60.0 (>42); GLUCOSE, FASTING 99 MG/DL (70-100); POTASSIUM SERUM 3.9 MEQ/L (3.5-5.1); SODIUM LEVEL 137 MEQ/L (136-145); TOTAL PROTEIN 6.4 GM/DL (6.4-8.2)
[2018-07-31] MEDS: SYMBICORT 160/4.5MCG INHALER 6GM INH SCH (07:52)
[2018-07-31] MEDS: ALVIMOPAN 12 MG CAPSULE (ENTEREG) PO SCH (09:14)
[2018-07-31] MEDS: POTASSIUM CHLORIDE 10 MEQ SR TABLET PO SCH (09:15)
[2018-07-31] MEDS: SIMETHICONE 80 MG CHEW TAB PO SCH ×2 (09:15→12:47)
[2018-07-31] MEDS: PERCOCET 5MG/325MG TAB PO PRN (09:15)
[2018-07-31] MEDS: ASPIRIN 81 MG ENTERIC TAB PO SCH (09:15)
[2018-07-31] MEDS: PANTOPRAZOLE 40MG INJ (PROTONIX) (C9113) IV SCH (09:15)
[2018-07-31] MEDS: ENOXAPARIN 40 MG/0.4 ML SYRINGE (J1650) SC SCH (09:16)
[2018-07-31 09:18] VITALS: BP 131/77
[2018-07-31] MEDS: METOPROLOL TART 50 MG TAB PO SCH (09:18)
--- NOTE | 2018-07-31 09:24 | IPNPDOC ---
Subjective General Date/Time Seen The patient was seen on 07/31/18 at 09:23. Subject Chief Complaint/History The patient is a 77-year-old male admitted with a reason for visit of Small Bowel Obstruction. Patient was seen walking around in his room, looks very comfortable. He continues to have multiple loose bowel movements yesterday and overnight but he reports that the consistency of the stool has improved. He is tolerating diet. He's having some mild abdominal cramping with the bowel movements but otherwise feels improved. He denies any shortness of breath and reports he is ambulating outside. Current Medications Current Medications Current Medications Acetaminophen (Tylenol Tab) 650 mg Q4HP PRN PO MILD PAIN or TEMP > 101 Last administered on 07/28/18 17:11; Start 07/22/18 at 07:45 Albuterol Sulfate (Proventil Neb) 2.5 mg QID PRN INH SHORTNESS OF BREATH Last administered on 07/26/18 05:40; Start 07/22/18 at 07:45 Albuterol Sulfate (Proventil Neb) 2.5 mg RQ4H NEB Last administered on 07/30/18at 23:30; Start 07/25/18 at 12:00 Alvimopan (Entereg) 12 mg BID PO Last administered on 07/31/18 09:14; Start 07/25/18 at 21:00; Stop 08/01/18 at 20:59 Amlodipine Besylate (Norvasc) 7.5 mg DAILY PO Last administered on 07/31/18 09:18; Start 07/22/18 at 09:00 Aspirin (Ecotrin) 81 mg DAILY PO Last administered on 07/31/18 09:15; Start 07/22/18 at 09:00 Bisacodyl (Dulcolax Suppository) 10 mg DAILYPRN PRN [place] CONSTIPATION; Start 07/26/18 at 08:15 Budesonide/ Formoterol Fumarate (Symbicort 160/ 4.5mcg) 2 puff BID INH Last administered on 07/31/18 07:52; Start 07/22/18 at 09:00 Diatrizoate Meglum/ Diatrizoate Sod (Gastrografin) 10 ml Q30M PO Last a dministered on 07/22/18at 03:00; Start 07/22/18 at 03:05; Stop 07/22/18 at 03:36; Status DC Enoxaparin Sodium (Lovenox) 40 mg DAILY SC Last administered on 07/31/18at 09:16; Start 07/22/18 at 09:00 Fentanyl Citrate (Sublimaze) 25 mcg Q5MP PRN IV MODERATE PAIN (PS 4-7); Start 07/24/18 at 17:00; Stop 07/24/18 at 18:00; Status DC Home Med (Med Rec Complete!) ASDIRECTED XX ; Start 07/22/18 at 03:45; Stop 07/22/18 at 03:47; Status DC Lactated Ringer's 1,000 ml @ 100 mls/hr Q10H IV ; Start 07/24/18 at 17:00; Stop 07/24/18 at 18:00; Status DC Lactated Ringer's 1,000 ml @ 150 mls/hr Q6H40M IV Last administered on 07/24/18at 03:15; Start 07/22/18 at 07:43; Stop 07/24/18 at 08:18; Status DC Metoclopramide HCl (REGLAN INJection) 10 mg Q6HP PRN IV NAUSEA OR VOMITING; Start 07/24/18 at 17:00; Stop 07/24/18 at 18:00; Status DC Metoprolol Tartrate (Lopressor) 50 mg BID PO Last administered on 07/31/18at 09: 18; Start 07/22/18 at 09:00 Montelukast Sodium (Singulair) 10 mg QHS PO Last administered on 07/30/18at 21:03; Start 07/22/18 at 21:00 Morphine Sulfate (Morphine Sulfate Inj) 4 mg Q3HP PRN IV SEVERE PAIN (PS 8-10) Last administered on 07/22/18at 15:54; Start 07/22/18 at 07:45 Ondansetron HCl (ZOFRAN INJection) 4 mg Q4HP PRN IV NAUSEA OR VOMITING; Start 07/24/18 at 17:00; Stop 07/24/18 at 18:00; Status DC Ondansetron HCl (ZOFRAN INJection) 4 mg Q6HP PRN IV NAUSEA OR VOMITING; Start 07/22/18 at 07:45 Oxycodone/ Acetaminophen (Percocet 5mg/ 325mg Tablet) 1 tab ASDIRECTED PRN PO MILD/MODERATE PAIN (PS 1-7); Start 07/24/18 at 17:00; Stop 07/24/18 at 18:00; Status DC Oxycodone/ Acetaminophen (Percocet 5mg/ 325mg Tablet) 1 tab Q4HP PRN PO MODERATE PAIN (PS 5-7) Last administered on 07/30/18at 06:07; Start 07/22/18 at 07:45 Oxycodone/ Acetaminophen (Percocet 5mg/ 325mg Tablet) 2 tab Q6HP PRN PO SEVERE PAIN (PS 8-10) Last administered on 07/31/18at 09:15; Start 07/22/18 at 07:45 Pantoprazole Sodium (Protonix) 40 mg DAILY IV Last administered on 07/31/18at 09:15; Start 07/22/18 at 09:00 Phenol (Chloraseptic [place]) 1 spray Q2HP PRN [place] SORE THROAT; Start 07/23/18 at 08:30 Polyethylene Glycol (Miralax) 1 pkt BID PO Last administered on 07/30/18at 08:26; Start 07/27/18 at 09:00; Stop 07/30/18 at 15:43; Status DC Potassium Chloride 10 meq/ IV Miscellaneous Supplies 100 ml @ 100 mls/hr Q1H IV Last administered on 07/28/18at 10:40; Start 07/28/18 at 09:00; Stop 07/28/18 at 10:59; Status DC Potassium Chloride/Dextrose/ Sod Cl 1,000 ml @ 75 mls/hr [id number] IV Last administered on 07/29/18at 03:01; Start 07/28/18 at 08:15; Stop 07/29/18 at 08:04; Status DC Potassium Chloride/Dextrose/ Sod Cl 1,000 ml @ 100 mls/hr Q10H IV Last administered on 07/28/18at 02:51; Start 07/24/18 at 09:00; Stop 07/28/18 at 08:16; Status DC Potassium Chloride (Micro-K Extencaps) 40 meq DAILY PO Last administered on 07/31/18at 09:15; Start 07/28/18 at 09:00 Simethicone (Mylicon) 120 mg QID PO Last administered on 07/31/18at 09:15; Start 07/25/18 at 09:00 Tamsulosin HCl (Flomax) 0.8 mg QHS PO Last administered on 07/30/18at 21:03; Start 07/22/18 at 21:00 Allergies Coded Allergies: No Known Allergies (Unverified , 11/13/16) Objective Physical Examination Examination GENERAL APPEARANCE:Looks comfortable SKIN: Warm and moist. HEENT: Normocephalic, atraumatic. [place] palpebral conjunctiva, anicteric sclerae. Lips and mucosa appear moist. NECK: Supple, no thyromegaly. No obvious jugular venous distention. LUNGS: Clear to auscultation bilaterally. Occasional wheezing appreciated. HEART: No chest wall abnormalities. Regular rate and rhythm with no murmurs appreciated. ABDOMEN: Abdomen is Round, soft, minimally distended. Port site incisions are clean, dry, and intact. Nontender on probation throughout the whole of the ab domen. EXTREMITIES: Extremities have no deformities. No edema identified. Vital Signs Vital Signs Date Time Temp Pulse Resp B/P (MAP) Pulse Ox O2 Delivery O2 Flow Rate FiO2 07/31/18 09:18 70 131/77 07/31/18 09:15 18 07/31/18 06:00 98.3 97 07/31/18 06:00 Room Air 07/27/18 06:00 3.0 I&Os l I&O- Last 24 Hours up to 6 AM 07/31/18 06:00 Intake Total 1620 ml Output Total 140 ml Balance 1480 ml Laboratory Data Labs 24H Laboratory Tests 2 07/31/18 05:30: Nucleated Red Blood Cells % (auto) 0.0, Anion Gap 7L, Glomerular Filtration Rate > 60.0, Blood Urea Nitrogen 15, Creatinine 1.20, Sodium Level 137, Potassium Level 3.9, Chloride Level 104, Carbon Dioxide Level 26, Calcium Level 7.9L, Aspartate Amino Transf (AST/SGOT) 17, Alanine Aminotransferase (ALT/SGPT) 20, Alkaline Phosphatase 105, Total Bilirubin 0.3, Total Protein 6.4, Albumin 2.6L, Albumin/Globulin Ratio 0.68L CBC/BMP Laboratory Tests 07/31/18 05:30 Red Blood Count 3.58 L, Mean Corpuscular Volume 94.7, Mean Corpuscular Hemoglobin 31.3, Mean Corpuscular Hemoglobin Concent 33.0, Red Cell Distribution Width 15.0 H, Calcium Level 7.9 L, Aspartate Amino Transf (AST/SGOT) 17, Alanine Aminotransferase (ALT/SGPT) 20, Alkaline Phosphatase 105, Total Bilirubin 0.3, Total Protein 6.4, Albumin 2.6 L Impression POD7 Laparoscopic Lysis of adhesion for small bowel obstruction COPD urinary retention Patient doing well. OK to go home on regular diet resume all COPD meds- Patient advised to follow with [place] doctor regarding his respiratory status if this worsens urinary retention appears resolved. Plan / VTE VTE Prophylaxis Ordered?: Yes Plan / Urinary Catheter Urinary Catheter: D/C MARIPOSA Odonnell MD Jul 31, 2018 09:24
[2018-07-31] MEDS ORDERED: PERCOCET PO (09:27)
--- NOTE | 2018-07-31 09:37 | DS.PDOC ---
Discharge Summary General Date of Admission Jul 22, 2018 at 07:43 Date of Discharge July 31, 2018 Attending Physician: MARIPOSA RUBALCAVA MD Discharge Summary PROCEDURES PERFORMED DURING STAY: Laparoscopic lysis of adhesion and release of small bowel obstruction (07/24/2018). ADMITTING DIAGNOSES: 1. Small bowel obstruction secondary to adhesions 2. COPD 3. Constipation . DISCHARGE DIAGNOSES: 1. Small bowel obstruction secondary to adhesions resolved 2. COPD 3. Urinary retention 4. Postoperative ileus resolved COMPLICATIONS/CHIEF COMPLAINT: Small Bowel Obstruction. HISTORY OF PRESENT ILLNESS: . HOSPITAL COURSE: Patient was seen in the emergency room and evaluated. He was distended but stable with no signs of bowel perforation or threatened bowel. He continued to h ave high nasogastric tube output for the next 48 hours though his abdominal cramping and pain is resolved. He feels to show improvement with nonoperative therapy. He was brought to the operating room on 07/24/2018 for diagnostic laparoscopy. He underwent laparoscopic lysis of adhesions successfully. He was extubated but his nasogastric tube was dislodged in the postoperative unit. I elected not to replace back the nasogastric tube and observing the next few days. He continued to have abdominal distention with absence of flatus or bowel movements for the next 3 days or so probably from postoperative ileus. He also has some significant urinary retention and being able to void spontaneously req uiring placement back of the urinary catheter. He was not having any significant postoperative abdominal discomfort. He also has some worsening of his chronic COPD postoperatively requiring oxygen supplementation also prohibiting him early on to ambulate but this also got better. He was eventually able to pass flatus and his bowel function resumed at about postoperative day 6 after getting some laxatives. He was also placed on Entereg for postoperative ileus. During the admission also he has some significant hypokalemia probably more iatrogenic with IV fluids. This was replaced. Once he is able to show that his bowels are starting moving antegradely, he was started on diet. Initially he was placed on full liquids with Ensure supplementation. I allowed him sips of water throughout his postoperative and perioperative course. His diet was then advanced once he was able to have multiple bowel movements which decompressed his abdomen. On discharge he COPD and breathing and oxygenation seems to be at baseline. His Vel[place] catheter was removed 2 days prior to his discharge and he is able to void spontaneously. He has been able to tolerate at least 3 full solid meals prior to discharge. DISCHARGE MEDICATIONS: Please see below. ALLERGIES: Please see below. PHYSICAL EXAMINATION ON DISCHARGE: VITAL SIGNS: Please see below. GENERAL: HEENT: NECK: CARDIOVASCULAR EXAMINATION: RESPIRATORY EXAMINATION: ABDOMINAL EXAMINATION: EXTREMITIES: SKIN: NEUROLOGICAL EXAMINATION: PSYCHIATRIC EXAMINATION: LABORATORY DATA: Please see below. IMAGING: CT scan of the abdomen and pelvis done in the emergency room and multiple abdominal x-rays PROGNOSIS: Good ACTIVITY: [As tolerated]. DIET: As tolerated DISCHARGE PLAN: Patient is discharged home. He'll follow-up with me in 2 weeks. He was advised to follow up with his [place] doctor with regards to his COPD status in case this worsens. DISPOSITION: . DISCHARGE INSTRUCTIONS: 1. As above 2. Follow-up with me in 2 weeks 3. [facility] with regards [facility] other medical problems. Specifically his COPD. ITEMS TO FOLLOWUP ON ON OUTPATIENT: 1. . DISCHARGE CONDITION: [Stable]. TIME SPENT ON DISCHARGE: Greater than 45 minutes. Vital Signs/I&Os Vital Signs Date Time Temp Pulse Resp B/P (MAP) Pulse Ox O2 Delivery O2 Flow Rate FiO2 07/31/18 09:18 70 131/77 07/31/18 09:15 18 07/31/18 06:00 98.3 97 07/31/18 06:00 Room Air 07/27/18 06:00 3.0 I&O- Last 24 Hours up to 6 AM 07/31/18 06:00 Intake Total 1620 ml Output Total 140 ml Balance 1480 ml Laboratory Data Labs 24H Laboratory Tests 2 07/31/18 05:30: Nucleated Red Blood Cells % (auto) 0.0, Anion Gap 7L, Glomerular Filtration Rate > 60.0, Blood Urea Nitrogen 15, Creatinine 1.20, Sodium Level 137, Potassium Level 3.9, Chloride Level 104, Carbon Dioxide Level 26, Calcium Level 7.9L, Aspartate Amino Transf (AST/SGOT) 17, Alanine Aminotransferase (ALT/SGPT) 20, Alkaline Phosphatase 105, Total Bilirubin 0.3, Total Protein 6.4, Albumin 2.6L, Albumin/Globulin Ratio 0.68L CBC/BMP Laboratory Tests 07/31/18 05:30 Red Blood Count 3.58 L, Mean Corpuscular Volume 94.7, Mean Corpuscular Hemoglobin 31.3, Mean Corpuscular Hemoglobin Concent 33.0, Red Cell Distribution Width 15.0 H, Calcium Level 7.9 L, Aspartate Amino Transf (AST/SGOT) 17, Alanine Aminotransferase (ALT/SGPT) 20, Alkaline Phosphatase 105, Total Bilirubin 0.3, Total Protein 6.4, Albumin 2.6 L Discharge Medications Scheduled Allopurinol (Zyloprim) 300 Mg Tab, 300 MG PO DAILY, (Reported) Amlodipine Besylate (Amlodipine Besylate) 2.5 Mg Tab, 7.5 MG PO DAILY, (Reported) Aspirin (Aspirin 81) 81 Mg Tab, 81 MG PO DAILY, (Reported) Budesonide/Formoterol (Symbicort 160-4.5 Mcg/Act) 60 Puff/Inhaler Aers, 2 PUFF INH BID, (Reported) Calcium/Vitamin D (Calcium 600-D 600-400 mg-Unit) 1 Tab Tab, 1 TAB PO DAILY, (Reported) Clopidogrel Bisulfate (Plavix) 75 Mg Tab, 75 MG PO DAILY, (Reported) Docusate Sod/Senna (Senna S 8.6-50 mg) 1 Tab Tab, 2 TAB PO AC, (Reported) Docusate Sodium (Docusate Sodium) 100 Mg Cap, 200 MG PO DAILY, (Reported) Metoprolol Tartrate (Metoprolol Tartrate) 50 Mg Tab, 50 MG PO BID, (Reported) Montelukast Sodium (Montelukast Sodium) 10 Mg Tab, 10 MG PO QHS, (Reported) Multivitamins *[facility] STOCKED* (Thera M Plus *[facility] STOCKED*) 1 Tab Tab, 1 TAB PO DAILY, (Reported) Potassium Chloride (Klor-Con M20) 20 Meq Tabcr, 20 MEQ PO AC, (Reported) Roflumilast (Daliresp) 500 Mcg Tab, 500 MCG PO DAILY, (Reported) Tamsulosin Hydrochloride (Flomax) 0.4 Mg Cap, 0.8 MG PO QHS, (Reported) Tiotropium [place] Monohydrate (Spiriva Respimat) 2.5 Mcg/Act Spr, 2 INHALATION INH DAILY, (Reported) Scheduled PRN Albuterol Sulfate (Ventolin Hfa) 108 Mcg/Act Aer, 2 PUFFS INH Q4H PRN for SHORTNESS OF BREATH, (Reported) Albuterol Sulfate (Albuterol Sulfate) 2.5 Mg/3 Ml Nebu, 2.5 MG INH QID PRN for SHORTNESS OF BREATH, (Reported) Diphenhydramine HCl (Diphenhydramine HCl) 25 Mg Cap, 25 MG PO QHS PRN for SLEEP, (Reported) Mupirocin (Mupirocin) 2 % Oin, 1 DOSE EXT TID PRN for INFECTION, (Reported) USES ON CHEST Oxycodone/Acetaminophen (Percocet 5MG/325MG Tablet) 1 Tab Tab, 1-2 TAB PO Q6HP PRN for SEVERE PAIN (PS 8-10) Allergies Coded Allergies: No Known Allergies (Unverified , 11/13/16) MARIPOSA RUBALCAVA MD Jul 31, 2018 09:37
== END 2018-07-31 15:19 | disposition home or self-care (01) | DRG 336 ==
LOC: EDBD 02:19 → M ED 02:19 → M ED INP 07:43 → M MS4PR 16:06 → M MSPAV 07-24 17:45
PROVIDERS: ADMIT Surgery; ATTEND Surgery
PROC: 0DN84ZZ Release Small Intestine, Percutaneous Endoscopic Approach (ICD-10-PCS; principal; 2018-07-24 11:15)
DX: K56.50 Intestinal adhesions [bands], unspecified as to partial versus complete obstruction (principal); K91.89 Other postprocedural complications and disorders of digestive system; K56.7 Ileus, unspecified; R33.9 Retention of urine, unspecified; E87.6 Hypokalemia; Z79.82 Long term (current) use of aspirin; Z79.899 Other long term (current) drug therapy; R91.8 Other nonspecific abnormal finding of lung field; I10 Essential (primary) hypertension; E78.5 Hyperlipidemia, unspecified; Z86.73 Personal history of transient ischemic attack (TIA), and cerebral infarction without residual deficits; Z87.891 Personal history of nicotine dependence; D64.9 Anemia, unspecified

== ENCOUNTER → 2018-10-19 | Outpatient (CLI) | payer MEDICARE, OTHER, MEDICAID ==
[~2018-10-19] MED LIST changes: +AMLO2.5T3 PO; +ASPI81TA26 PO; +CALCTAB6 PO; +DIPH25CA PO; +DOCU100C16 PO; +HYDR-3715 PO; +METO50TA7 PO; +MUPI2OI EXT; -NORC1TAB4 PO; +NORC1TAB7 PO; -NORCOTAB PO; +PERCOCET PO; +SENN1TAB41 PO
--- NOTE | 2018-10-19 18:36 | REP ---
REASON: Pyrexia. COMPARISON: Multiple the latest 02/26/2008. 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 Cardiomediastinal silhouette is stable. The heart is not enlarged. The lung miller are somewhat hyperexpanded, status quo. No acute patchy parenchymal opacities or pleural effusions have developed. There is no change in the osseous structure. IMPRESSION:Stable appearing chronic changes without plain radiographic evidence of acute cardiopulmonary disease. Electronically Signed by Jenaro Renteria DO 10/19/2018 06:49 P
== END ==
LOC: M LRY 16:32
PROVIDERS: ATTEND Physician Assistant
DX: R50.9 Fever, unspecified (principal)